=== PATIENT | male | born 1960 | race Caucasian/White ===

== ENCOUNTER 2016-07-27 10:25 | Emergency (ER) | payer OTHER ==
[~2016-07-27] VITALS: Ht 175.3 cm; Wt 106.6 kg
[2016-07-27] MEDS ORDERED: NS IV 1000 ML 1,000 ML IV ONE (11:22)
[2016-07-27] MEDS ORDERED: ONDANSETRON 4 MG/2 ML (SDV) Z0FRAN IVP ONE (11:30)
[2016-07-27] MEDS ORDERED: PANTOPRAZOLE 40 MG/10 ML (PROTONIX) VIAL IV ONE (11:30)
[2016-07-27 11:50] LABS: BASOPHILS % (AUTO) 0 % (0-10); EOSINOPHILS % (AUTO) 0 % (0-10); LYMPHOCYTES # (AUTO) 1.2 X 10^3 (1.0-4.0); LYMPHOCYTES % (AUTO) 10 % (12-44); MEAN CORPUSCULAR HEMOGLOBIN 30 PG (25-34); MEAN CORPUSCULAR HGB CONC 35 G/DL (32-36); MEAN CORPUSCULAR VOLUME 85 FL (80-99); MEAN PLATELET VOLUME 9.8 FL (7.4-10.4); MONOCYTES # (AUTO) 0.9 X 10^3 (0.0-1.0); MONOCYTES % (AUTO) 8 % (0-12); NEUTROPHILS # (AUTO) 9.9 X 10^3 (1.8-7.8); NEUTROPHILS % (AUTO) 82 % (42-75); PLATELET COUNT 299 10^3/uL (130-400); RED BLOOD COUNT 4.97 10^6/uL (4.35-5.85); RED CELL DISTRIBUTION WIDTH 14.4 % (10.0-14.5); WHITE BLOOD COUNT 12.1 10^3/uL (4.3-11.0)
--- NOTE | 2016-07-27 11:55 | ED GI ---
General Chief Complaint: Abdominal/GI Problems Stated Complaint: VOMITING BLOOD,BLOOD IN STOOL Nursing Triage Note: C/O N/V/D X3 DAYS. REPORTS POSSIBLE DARK BLOOD IN EMISIS. Sepsis Screen: No Definite Risk Source of Information: Patient History of Present Illness Time Seen By Provider: 11:20 Initial Comments PT STATES HE HAS HAD NAUSEA/VOMITING / DIARRHEA X 3 DAYS STATES HE HAS VOMITED AT LEAST 12 TIMES TODAY, AND YESTERDAY HE POSSIBLY HAD DARK BLOOD IN EMESIS DIARRHEA X 2 TODAY, STOOLS WERE DARK TODAY, AND THOUGHT HE MIGHT HAVE HAD A BLOOD CLOT YESTERDAY + SWEATS/CHILLS NO EPIGASTRIC PAIN , BUT C/O EPIGASTRIC BURNING ONLY WHEN HE TRIES TO DRINK-- STATES HE HAS NOT EATEN IN 4 DAYS, BUT HAS BEEN DRINKING WATER AND KEEPING IT DOWN. NO URINARY SYMPTOMS, AND VOIDING A NORMAL AMOUNT STATES HE HAD EGD 40 YEARS AGO AND WAS TOLD HE MIGHT HAVE AN ULCER, BUT HAS NOT BEEN ON MEDICATION SINCE THEN NO KNOWN SICK CONTACTS OR SUSPICIOUS FOODS PT IS IV DRUG USER --MULTIPLE SUBSTANCES, AND MOST RECENTLY CRUSHED UP MORPHINE PILLS AND INJECTED THEM IV TODAY. PCP: NONE Allergies and Home Medications Allergies Coded Allergies: No Known Drug Allergies (Unverified , 07/27/16) Home Medications Lactobacillus Acidophilus 1 Each Capsule, 2 EACH PO QID, #80 Prescribed by: MARTHA DEVI on 07/27/16 1305 Ondansetron 4 Mg Tab.rapdis, 4 MG PO Q4H, #10 Prescribed by: MARTHA DEVI on 07/27/16 1305 Pantoprazole Sodium 40 Mg Tablet.dr, 40 MG PO DAILY, #15 Prescribed by: MARTHA DEVI on 07/27/16 1305 Sucralfate 1 Gm/10 Ml Oral.susp, 1 GM PO QID, #400 Prescribed by: MARTHA DEVI on 07/27/16 1305 Review of Systems Constitutional: see HPI, chills, diaphoresis EENTM: No Symptoms Reported Respiratory: No Symptoms Reported Cardiovascular: No Symptoms Reported Gastrointestinal: See HPI, Diarrhea, Nausea, Poor Appetite, Poor Fluid Intake, Vomiting Genitourinary: No Symptoms Reported Musculoskeletal: no symptoms reported Skin: no symptoms reported Psychiatric/Neurological: No Symptoms Reported Endocrine: No Symptoms Reported Hematologic/Lymphatic: See HPI Past Qbglzgq-Tjefqf-Pyjagy Hx Patient Social History Alcohol Use: Occasionally Uses Recreational Drug Use: Yes (MULTIPLE SUBSTANCES AND STATES HE HAS USED THEM IV SINCE HE WAS A TEEN, INCLUDING COCAINE, HEROIN, METHAMPHETAMINES AND CRUSHING UP NARCOTIC PILLS INCLUDING MORPHINE. ) Drug of Choice: CRUSHED MORPHINE IV Smoking Status: Current Everyday Smoker (2 PPD) Type Used: Cigarettes 2nd Hand Smoke Exposure: Yes Recent Foreign Travel: No Contact w/Someone Who Travel: No Recent Infectious Disease Expo: No Recent Hopitalizations: No Immunizations Up To Date Tetanus Booster (TDap): Unknown Seasonal Allergies Seasonal Allergies: No Surgeries HX Surgeries: Yes (BILATERAL HAND SURGERY/TENDON REPAIR; HERNIA) Surgeries: Abdominal, Adenoidectomy, Gallbladder, Orthopedic, Tonsillectomy Respiratory Hx Respiratory Disorders: No Cardiovascular Hx Cardiac Disorders: No Neurological Hx Neurological Disorders: No Reproductive System Hx Reproductive Disorders: No Genitourinary Hx Genitourinary Disorders: No Gastrointestinal Hx Gastrointestinal Disorders: No Musculoskeletal Hx Musculoskeletal Disorders: Yes (CHRONIC KNEE PAIN--USES A CANE) Musculoskeletal Disorders: Arthritis Endocrine Hx Endocrine Disorders: No HEENT HX ENT Disorders: No Cancer Hx Cancer: No Psychosocial Hx Psychiatric Problems: No Integumentary HX Skin/Integumentary Disorder: No Blood Transfusions Hx Blood Disorders: No Physical Exam Vital Signs VS - Last 72 Hours, by Label 07/27/16 07/27/16 07/27/16 11:00 11:41 13:29 Temp 97.2 98.0 Pulse 74 67 63 68 83 Resp 18 16 B/P (MAP) 135/111 Pulse Ox 97 96 O2 Delivery Room Air Capillary Refill : Less Than 3 Seconds General Appearance: WD/WN, no apparent distress, other (DOES NOT APPEAR ILL OR TO BE IN ANY DISCOMFORT OR DISTRESS) HEENT: PERRL/EOMI, other (EDENTULOUS) Neck: normal inspection Respiratory: normal breath sounds, no respiratory distress, no accessory muscle use Cardiovascular: normal peripheral pulses, regular rate, rhythm, no edema, no JVD, no murmur Gastrointestinal: normal bowel sounds, non tender, soft, no organomegaly, no pulsatile mass Extremities: normal inspection Back: normal inspection, no CVA tenderness Neurologic/Psychiatric: supplemental nurse II-XII nml as tested, no motor/sensory deficits, alert, normal mood/affect, oriented x 3 Skin: normal color, warm/dry, tattoos/piercings (MULTIPLE TATTOOS), other ( FRESH TRACK GEORGE IN AC SPACES) Progress/Results/Core Measures Results/Orders Lab Results Laboratory Tests Test 07/27/16 11:35 07/27/16 13:07 Range/Units White Blood Count 12.1 H 4.3-11.0 10^3/uL Red Blood Count 4.97 4.35-5.85 10^6/uL Hemoglobin 14.8 13.3-17.7 G/DL Hematocrit 42 40-54 % Mean Corpuscular Volume 85 80-99 FL Mean Corpuscular Hemoglobin 30 25-34 PG Mean Corpuscular Hemoglobin Concent 35 32-36 G/DL Red Cell Distribution Width 14.4 10.0-14.5 % Platelet Count 299 130-400 10^3/uL Mean Platelet Volume 9.8 7.4-10.4 FL Neutrophils (%) (Auto) 82 H 42-75 % Lymphocytes (%) (Auto) 10 L 12-44 % Monocytes (%) (Auto) 8 0-12 % Eosinophils (%) (Auto) 0 0-10 % Basophils (%) (Auto) 0 0-10 % Neutrophils # (Auto) 9.9 H 1.8-7.8 X 10^3 Lymphocytes # (Auto) 1.2 1.0-4.0 X 10^3 Monocytes # (Auto) 0.9 0.0-1.0 X 10^3 Eosinophils # (Auto) 0.0 0.0-0.3 10^3/uL Basophils # (Auto) 0.0 0.0-0.1 10^3/uL Prothrombin Time 12.8 12.2-14.7 SEC INR Comment 1.0 0.8-1.4 Activated Partial Thromboplast Time 27 24-35 SEC Sodium Level 136 135-145 MMOL/L Potassium Level 3.2 L 3.6-5.0 MMOL/L Chloride Level 103 98-107 MMOL/L Carbon Dioxide Level 23 21-32 MMOL/L Anion Gap 10 5-14 MMOL/L Blood Urea Nitrogen 23 H 7-18 MG/DL Creatinine 0.75 0.60-1.30 MG/DL Estimat Glomerular Filtration Rate > 60 BUN/Creatinine Ratio 31 Glucose Level 131 H 70-105 MG/DL Calcium Level 8.8 8.5-10.1 MG/DL Magnesium Level 2.0 1.8-2.4 MG/DL Total Bilirubin 0.7 0.1-1.0 MG/DL Aspartate Amino Transf (AST/SGOT) 25 5-34 U/L Alanine Aminotransferase (ALT/SGPT) 39 0-55 U/L Alkaline Phosphatase 58 40-136 U/L Total Protein 6.5 6.4-8.2 G/DL Albumin 3.9 3.2-4.5 G/DL Amylase Level 15 L 25-125 U/L Lipase 8 8-78 U/L Serum Alcohol < 10 <10 MG/DL Urine Color YELLOW Urine Clarity CLEAR Urine pH 7 5-9 Urine Specific Luckey 1.010 L 1.016-1.022 Urine Protein 1+ H NEGATIVE Urine Glucose (UA) NEGATIVE NEGATIVE Urine Ketones 1+ H NEGATIVE Urine Nitrite NEGATIVE NEGATIVE Urine Bilirubin NEGATIVE NEGATIVE Urine Urobilinogen NORMAL NORMAL MG/DL Urine Leukocyte Esterase NEGATIVE NEGATIVE Urine RBC (Auto) NEGATIVE NEGATIVE Urine RBC NONE /HPF Urine WBC NONE /HPF Urine Crystals NONE /LPF Urine Bacteria NEGATIVE /HPF Urine Casts NONE /LPF Urine Mucus NEGATIVE /LPF Urine Culture Indicated NO Urine Opiates Screen POSITIVE H NEGATIVE Urine Oxycodone Screen NEGATIVE NEGATIVE Urine Methadone Screen NEGATIVE NEGATIVE Urine Propoxyphene Screen NEGATIVE NEGATIVE Urine Barbiturates Screen NEGATIVE NEGATIVE Ur Tricyclic Antidepressants Screen NEGATIVE NEGATIVE Urine Phencyclidine Screen NEGATIVE NEGATIVE Urine Amphetamines Screen NEGATIVE NEGATIVE Urine Methamphetamines Screen NEGATIVE NEGATIVE Urine Benzodiazepines Screen NEGATIVE NEGATIVE Urine Cocaine Screen NEGATIVE NEGATIVE Urine Cannabinoids Screen POSITIVE H NEGATIVE My Orders Orders - YONG DEVIA K DO Saline Lock/Iv-Start (07/27/16 11:22) Orthostatic Vital Signs (07/27/16 11:22) Monitor-Rhythm Ecg Trace Only (07/27/16 11:22) Amylase (07/27/16 11:22) Cbc With Automated Diff (07/27/16 11:22) Comprehensive Metabolic Panel (07/27/16 11:22) Drug Screen Stat (Urine) (07/27/16 11:22) Magnesium (07/27/16 11:22) Protime With Inr (07/27/16 11:22) Partial Thromboplastin Time (07/27/16 11:22) Ua Culture If Indicated (07/27/16 11:22) Saline Lock/Iv-Start (07/27/16 11:22) Ns Iv 1000 Ml (Sodium Chloride 0.9%) (07/27/16 11:22) Ondansetron Injection (Zofran Injectio (07/27/16 11:30) Pantoprazole Injection (Protonix Injecti (07/27/16 11:30) Lipase (07/27/16 11:22) Alcohol (07/27/16 11:42) Ct Chest/Abdomen/Pelvis W (07/27/16 12:14) Iohexol Injection (Omnipaque 350 Mg/Ml 1 (07/27/16 12:30) Ns (Ivpb) (Sodium Chloride 0.9% Ivpb Bag (07/27/16 12:30) Medications Given in ED Current Medications Medications Dose Ordered Sig/Nic Route Start Time Stop Time Status Last Admin Dose Admin Iohexol 100 ml ONCE ONCE IV 07/27/16 12:30 07/27/16 12:31 DC 07/27/16 12:23 100 ML Ondansetron HCl 4 mg ONCE ONCE IVP 07/27/16 11:30 07/27/16 11:36 DC 07/27/16 11:34 4 MG Pantoprazole 40 mg ONCE ONCE IV 07/27/16 11:30 07/27/16 11:36 DC 07/27/16 11:34 40 MG Sodium Chloride 100 ml ONCE ONCE IV 07/27/16 12:30 07/27/16 12:31 DC 07/27/16 12:23 80 ML Sodium Chloride 1,000 ml @ 0 mls/hr Q0M ONCE IV 07/27/16 11:22 07/27/16 11:24 DC 07/27/16 11:35 0 MLS/HR Vital Signs/I&O Vital Sign - Last 12Hours 07/27/16 07/27/16 07/27/16 11:00 11:41 13:29 Temp 97.2 98.0 Pulse 74 67 63 68 83 Resp 18 16 B/P (MAP) 135/111 Pulse Ox 97 96 O2 Delivery Room Air Blood Pressure Mean: 119 Progress Note : Progress Note NO VOMITING OR DIARRHEA DURING ER STAY PT TOLERATING WATER AND ICE CHIPS PRIOR TO DISMISSAL Diagnostic Imaging Comments CT CHEST/ABDOMEN/PELVIS--NO ACUTE PROCESS, SMALL HIATAL HERNIA, SMALL CYST IN LIVER PER RADIOLOGIST REPORT @ 1300 Reviewed: Reviewed by Me Departure Communication Progress Notes 1323--SPOKE WITH DR. MEJIA, WILL SEE PT IN CLINIC AND ARRANGE FOR OUTPATIENT EGD/COLONOSCOPY Impression Impression: Primary Impression: Gastroenteritis Additional Impressions: Hiatal hernia GERD SYMPTOMS Disposition: 01 HOME, SELF-CARE Condition: Stable Departure-Patient Inst. Referrals: CLEM MEJIA,LOCAL PHYSICIAN (PCP) Primary Care Physician Patient Instructions: Acid Reflux (Gastroesophageal Reflux Disease), Adult (DC) , [id number] Add. Discharge Instructions: CLEAR LIQUIDS--WATER, BROTH, JELLO, GATORADE BRATS DIET--BANANAS, RICE, APPLESAUCE, TOAST, SALTINES ACIDOPHILS DAILY NO ALCOHOL OR DRUGS FOLLOW UP WITH DR MEJIA THIS WEEK FOR FURTHER CARE CALL THIS WEEK TO ESTABLISH PRIMARY CARE DR. All discharge instructions reviewed with patient and/or family. Voiced understanding. Scripts Lactobacillus Acidophilus (Acidophilus) 1 Each Capsule 2 EACH PO QID, #80 CAP Prov: MARTHA DEVI DO 07/27/16 Ondansetron (Zofran Odt) 4 Mg Tab.rapdis 4 MG PO Q4H for Nausea/Vomiting, #10 TAB Prov: MARTHA DEVI DO 07/27/16 Pantoprazole Sodium (Protonix) 40 Mg Tablet.dr 40 MG PO DAILY, #15 TAB Prov: MARTHA DEVI DO 07/27/16 Sucralfate (Carafate) 1 Gm/10 Ml Oral.susp 1 GM PO QID, #400 ML Prov: MARTHA DEVI DO 07/27/16 Work/School Note: Local Medical Staff Listing MARTHA DEIV DO Jul 27, 2016 11:55
[2016-07-27 12:00] LABS: PROTHROMBIN TIME PATIENT 12.8 SEC (12.2-14.7)
[2016-07-27 12:09] LABS: ALANINE AMINOTRANSFERASE 39 U/L (0-55); ALBUMIN 3.9 G/DL (3.2-4.5); AMYLASE 15 U/L (25-125); ANION GAP 10 MMOL/L (5-14); ASPARTATE AMINO TRANSFERASE 25 U/L (5-34); BILIRUBIN,TOTAL 0.7 MG/DL (0.1-1.0); BLOOD UREA NITROGEN 23 MG/DL (7-18); BUN/CREATININE RATIO 31; CALCIUM 8.8 MG/DL (8.5-10.1); CARBON DIOXIDE 23 MMOL/L (21-32); CHLORIDE 103 MMOL/L (98-107); CREATININE SERUM 0.75 MG/DL (0.60-1.30); GFR ESTIMATED > 60; GLUCOSE 131 MG/DL (70-105); LIPASE 8 U/L (8-78); POTASSIUM 3.2 MMOL/L (3.6-5.0); SODIUM 136 MMOL/L (135-145); TOTAL PROTEIN 6.5 G/DL (6.4-8.2)
[2016-07-27 12:10] LABS: ALCOHOL < 10 MG/DL (<10)
[2016-07-27] MEDS ORDERED: IOHEXOL 350 MG/ML 100 ML (OMNIPAQUE 350) VIAL IV ONE (12:30)
[2016-07-27] MEDS ORDERED: NS 100 ML (IVPB) BAG IV ONE (12:30)
--- NOTE | 2016-07-27 12:57 | Diagnostic Imaging Report ---
PROCEDURE: CT chest, abdomen, and pelvis with contrast. TECHNIQUE: Multiple contiguous axial images were obtained through the chest, abdomen, and pelvis after the administration of intravenous contrast. INDICATION: Hemoptysis as well as blood in stool. FINDINGS: CT CHEST WITH CONTRAST: There is mild scarring or atelectasis noted along the lingula. The lungs are otherwise well-aerated and clear. There are no masses. Good opacification of the aorta and pulmonary arteries which appear normal. No mediastinal or hilar adenopathy of pathologic size. Bone windows show no blastic or lytic lesions. IMPRESSION: Minimal atelectasis or scarring along the lingula otherwise negative chest. CT ABDOMEN AND PELVIS WITH CONTRAST: There is a cyst in the left lobe of the liver. This measures approximately 1.7 cm in diameter. Gallbladder is absent. Bile ducts are not dilated. Pancreas and spleen are normal. Adrenal glands are normal. The kidneys show no evidence of obstruction. No calculi or masses. There is normal enhancement of the abdominal organs and vessels. Aorta is atherosclerotic. Maximal diameter of the aorta is 2.9 cm. There is oral contrast in the stomach and small bowel which appear normal. There is a small fixed hiatal hernia present. Colon shows normal stool and gas pattern. The appendix is visualized and normal. There are no diverticuli. No pelvic masses. Bladder appears normal. No intra-abdominal adenopathy. There is no free air or free fluid. IMPRESSION: 1. Benign-appearing cyst in the left lobe of the liver otherwise negative CT abdomen and pelvis. 2. Small fixed hiatal hernia. Dictated by: Dictated on workstation # [id number]
[2016-07-27] MEDS ORDERED: LACT1CAP8 PO (13:05)
[2016-07-27] MEDS ORDERED: SUCR1ORA5 PO (13:05)
[2016-07-27] MEDS ORDERED: PANT40TA2 PO (13:05)
[2016-07-27] MEDS ORDERED: ONDA4TAB8 PO (13:05)
[2016-07-27 13:19] LABS: BILIRUBIN,URINE NEGATIVE (NEGATIVE); KETONES,URINE 1+ (NEGATIVE); LEUKOCYTE ESTERASE ,URINE NEGATIVE (NEGATIVE); NITRITE,URINE NEGATIVE (NEGATIVE); PH,URINE 7 (5-9); PROTEIN,URINE 1+ (NEGATIVE); UROBILINOGEN,URINE NORMAL (NORMAL)
[2016-07-27 13:29] VITALS: BP 145/88
== END 2016-07-27 13:29 | disposition home or self-care (01) ==
LOC: EDUNIT# 10:25 → ER 10:27
DX: K52.9 Noninfective gastroenteritis and colitis, unspecified (principal); K21.9 Gastro-esophageal reflux disease without esophagitis; K44.9 Diaphragmatic hernia without obstruction or gangrene; K76.89 Other specified diseases of liver; F17.210 Nicotine dependence, cigarettes, uncomplicated; F11.10 Opioid abuse, uncomplicated
CPT/HCPCS: 36415; 71260; 74177; 80053; 80306; 80320; 81000; 82150; 83690; 83735; 85025; 85610; 85730; 93041; 96374; 96375

== ENCOUNTER 2018-10-04 09:22 | Outpatient (CLI) | payer MEDICARE ==
[~2018-10-04] VITALS: Ht 177.8 cm; Wt 112.5 kg
[~2018-10-04 09:22] MED LIST: LACT1CAP8 PO; ONDA4TAB8 PO; PANT40TA2 PO; SUCR1ORA5 PO
[2018-10-04 10:43] LABS: BASOPHILS # (AUTO) 0.1 10^3/uL (0.0-0.1); BASOPHILS % (AUTO) 1 % (0-10); EOSINOPHILS # (AUTO) 0.3 10^3/uL (0.0-0.3); EOSINOPHILS % (AUTO) 4 % (0-10); HEMATOCRIT 47 % (40-54); HEMOGLOBIN 15.8 G/DL (13.3-17.7); LYMPHOCYTES # (AUTO) 1.9 X 10^3 (1.0-4.0); LYMPHOCYTES % (AUTO) 22 % (12-44); MEAN CORPUSCULAR HEMOGLOBIN 30 PG (25-34); MEAN CORPUSCULAR HGB CONC 34 G/DL (32-36); MEAN CORPUSCULAR VOLUME 87 FL (80-99); MEAN PLATELET VOLUME 9.6 FL (7.4-10.4); MONOCYTES # (AUTO) 0.7 X 10^3 (0.0-1.0); MONOCYTES % (AUTO) 8 % (0-12); NEUTROPHILS # (AUTO) 5.9 X 10^3 (1.8-7.8); NEUTROPHILS % (AUTO) 66 % (42-75); PLATELET COUNT 282 10^3/uL (130-400); RED CELL DISTRIBUTION WIDTH 14.9 % (10.0-14.5); WHITE BLOOD COUNT 8.9 10^3/uL (4.3-11.0)
[2018-10-04 10:54] LABS: BILIRUBIN,URINE NEGATIVE (NEGATIVE); CLARITY,URINE CLEAR; COLOR,URINE YELLOW; GLUCOSE, URINE (UA) NEGATIVE (NEGATIVE); KETONES,URINE NEGATIVE (NEGATIVE); LEUKOCYTE ESTERASE ,URINE 1+ (NEGATIVE); NITRITE,URINE NEGATIVE (NEGATIVE); PH,URINE 5 (5-9); PROTEIN,URINE NEGATIVE (NEGATIVE); UROBILINOGEN,URINE NORMAL (NORMAL)
[2018-10-04 10:59] VITALS: BP 163/98
[2018-10-04 11:04] LABS: BACTERIA,URINE NEGATIVE /HPF; WBC,URINE RARE /HPF
[2018-10-04 11:06] LABS: INR 0.9 (0.8-1.4); PROTHROMBIN TIME PATIENT 12.6 SEC (12.2-14.7)
[2018-10-04 11:10] LABS: ALANINE AMINOTRANSFERASE 12 U/L (0-55); ALBUMIN 4.1 GM/DL (3.2-4.5); ALKALINE PHOSPHATASE 54 U/L (40-136); BILIRUBIN,TOTAL 0.4 MG/DL (0.1-1.0); BUN/CREATININE RATIO 19; CALCIUM 9.2 MG/DL (8.5-10.1); CARBON DIOXIDE 19 MMOL/L (21-32); CHLORIDE 108 MMOL/L (98-107); CREATININE SERUM 0.77 MG/DL (0.60-1.30); GFR ESTIMATED > 60; GLUCOSE 98 MG/DL (70-105); POTASSIUM 4.1 MMOL/L (3.6-5.0); SODIUM 136 MMOL/L (135-145); TOTAL PROTEIN 7.2 GM/DL (6.4-8.2)
--- NOTE | 2018-10-04 11:22 | Diagnostic Imaging Report ---
Indication: Preop knee replacement, degenerative joint disease. PA and lateral chest Heart size and pulmonary vascularity are normal. Lungs are clear. There are no effusions or pneumothoraces. Impression: Negative chest. Dictated by: Dictated on workstation # [id number]
[2018-10-04 11:24] LABS: ERYTHROCYTE SEDIMENTATION RATE 6 MM/HR (0-30)
[2018-10-05] MEDS ORDERED: DILT120C47 PO (11:35)
[2018-10-05] MEDS ORDERED: DILT120C53 PO (11:47)
[2018-10-06] MEDS ORDERED: OXYC1TAB87 PO (09:30)
== END 2018-10-04 11:00 | disposition home or self-care (01) ==
LOC: PREOP 09:22
PROVIDERS: ATTEND Orthopaedic Surgery
DX: Z01.810 Encounter for preprocedural cardiovascular examination (principal); Z01.811 Encounter for preprocedural respiratory examination; Z01.812 Encounter for preprocedural laboratory examination; Z11.2 Encounter for screening for other bacterial diseases; M17.12 Unilateral primary osteoarthritis, left knee; R53.83 Other fatigue
CPT/HCPCS: 36415; 71046; 80053; 81000; 85025; 85610; 85652; 86850; 86900; 86901; 87081; 93005

== ENCOUNTER 2018-10-05 08:05 | Inpatient (IN) | payer MEDICARE ==
[2018-10-05] VITALS (15 sets, daily range): BP systolic 88–127; BP diastolic 45–91
[~2018-10-05] VITALS: Ht 177.8 cm; Wt 113.4 kg
[2018-10-05 08:54] LABS: HEMOGLOBIN 15.6 G/DL (13.3-17.7); MEAN PLATELET VOLUME 9.4 FL (7.4-10.4); RED CELL DISTRIBUTION WIDTH 15.5 % (10.0-14.5); WHITE BLOOD COUNT 8.1 10^3/uL (4.3-11.0)
[2018-10-05] MEDS ORDERED: HEParin DRIP 25000 UNIT/500ML 500 ML IV SCH (09:01)
[2018-10-05 09:09] LABS: INR 0.9 (0.8-1.4); PROTHROMBIN TIME PATIENT 12.9 SEC (12.2-14.7)
[2018-10-05] MEDS ORDERED: HEParin 1000 UNIT/ML (10ML VIAL) FOR BOLUS IV PRN (09:15)
[2018-10-05] MEDS ORDERED: CATHETER FLUSH 10 ML SYR IV PRN (09:15)
[2018-10-05 09:16] LABS: ALANINE AMINOTRANSFERASE 13 U/L (0-55); ALBUMIN 4.4 GM/DL (3.2-4.5); ALKALINE PHOSPHATASE 61 U/L (40-136); BILIRUBIN,TOTAL 0.4 MG/DL (0.1-1.0); BUN/CREATININE RATIO 21; CALCIUM 9.7 MG/DL (8.5-10.1); CARBON DIOXIDE 23 MMOL/L (21-32); CHLORIDE 104 MMOL/L (98-107); CREATININE SERUM 0.81 MG/DL (0.60-1.30); GFR ESTIMATED > 60; GLUCOSE 97 MG/DL (70-105); POTASSIUM 4.2 MMOL/L (3.6-5.0); SODIUM 138 MMOL/L (135-145); TOTAL PROTEIN 7.5 GM/DL (6.4-8.2)
--- NOTE | 2018-10-05 10:22 | Diagnostic Imaging Report ---
INDICATION: Atrial fibrillation. TECHNIQUE: Two view chest 9:15 AM CORRELATION STUDY: 10/04/2018 FINDINGS: The heart size, mediastinal configuration and pulmonary vasculature are within normal limits. Lung sosa are hyperinflated but overall clear. Mild eventration of the right diaphragm, stable. Mild degenerative changes through the thoracic spine. IMPRESSION: 1. Stable chest demonstrates no acute abnormality. Hyperinflated lung sosa. Dictated by: Dictated on workstation # [id number]
--- NOTE | 2018-10-05 10:25 | Cardiology History & Physical ---
HPI-Cardiology Cardiology Consultation Date of Consultation 10/05/18 Date of Admission Time Seen by Provider: 08:30 Indication: atrial flutter HPI Mr Samm is 58 years old gentleman with no significant past history, active smoker, was scheduled for knee replacement surgery and the preoperative workup was noted to be in atrial flutter with rapid ventricular response and hypertension, denied any chest pain or shortness of breath. No palpitation, syncope or near syncopal episodes. No claudications. Had a long discussion with the patient and with Dr. Johnson and agreed on admitting the patient to the hospital and starting IV thousand, blockers and heparin drip in preparation to control his rate then planning for surgery. this morning patient was admitted, no new complaint, no palpitation. No syncope or near syncopal episodes PMH-Cardiology Immunizations Up To Date Tetanus Booster (DTap): Unknown Seasonal Allergies Seasonal Allergies: No Surgeries Yes (BILATERAL HAND SURGERY/TENDON REPAIR; [facility] HERNIA) Respiratory No Cardiovascular No Neurological No Reproductive System Hx Reproductive Disorders: No Genitourinary No Gastrointestinal Yes (hep C treated ) Musculoskeletal Yes (osteoarthritis L knee) Arthritis Endocrine No HEENT Yes (dentures ) Cancer No Psychosocial No Integumentary No Blood Transfusions No Other PMHx discussed the Social History Patient Social History Marrital Status: Employed/Student: employed Family Hx Family History: Colon cancer 19 FATHER Dementia 19 FATHER Diabetes mellitus 19 FATHER Hypertension 19 FATHER G8 BROTHER Thyroid disease G8 SISTER ROS-Cardiology Review of Systems General: No Chills, No Night Sweats, No Fatigue, No Malaise, No Appetite HEENT: No Head Aches, No Visual Changes, No Eye Pain, No Ear Pain, No Dysphasia, No Sinus Congestion, No Post Nasal Drip, No Sore Throat Pulmonary: No Dyspnea, No Cough, No Pleuritic Chest Pain Cardiovascular: No: Chest Pain, Palpitations, Orthopnea, Paroxysmal Noc. Dyspnea, Edema, Lt Headedness Gastrointestinal: No: Nausea, Vomiting, Abdominal Pain, Diarrhea, Constipation, Melena, Hematochezia Genitourinary: No Dysuria, No Frequency, No Incontinence, No Hematuria, No Retention Musculoskeletal: shoulder pain, leg pain; No: neck pain, arm pain, back pain, hand pain, foot pain Neurological: No: Weakness, Numbness, Incoordination, Change in speech, Confusion, Seizures Home Medications & Allergies Allergies: Coded Allergies: No Known Drug Allergies (Unverified , 07/27/16) Home Medication List Reviewed: Yes Exam-Cardiology Vital Signs Vital Signs Date Time Temp Pulse Resp B/P (MAP) Pulse Ox O2 Delivery O2 Flow Rate FiO2 10/05/18 09:22 114 10/05/18 09:00 19 127/91 (103) 93 Room Air Exam General Appearance: Alert, Oriented X3, Cooperative, No Acute Distress HEENT: Atraumatic, PERRLA Respiratory: Clear to Auscultation, Normal Air Movement Cardiovascular: Normal S1, Normal S2, No Murmurs, Other (atrial flutter with rapid ventricular response) Abdominal: Normal Bowel Sounds, Soft, No Tenderness, No Hepatosplenomegaly, No Masses Extremities: No Clubbing, No Cyanosis, No Edema, Normal Pulses, No Tenderness/Swelling Skin: No Rashes, No Breakdown, No Significant Lesion Neuro: Normal Gait, Normal Speech, Strength at 5/5 X4 Ext, Normal Tone, Sensation Intact Psych/Mental Status: Mental Status NL, Mood NL Results Labs Labs Laboratory Tests 10/05/18 08:40: White Blood Count 8.1, Red Blood Count 5.22, Hemoglobin 15.6, Hematocrit 47, Mean Corpuscular Volume 89, Mean Corpuscular Hemoglobin 30, Mean Corpuscular Hemoglobin Concent 34, Red Cell Distribution Width 15.5H, Platelet Count 291, Mean Platelet Volume 9.4, Prothrombin Time 12.9, INR Comment 0.9, Activated Partial Thromboplast Time 33, Sodium Level 138, Potassium Level 4.2, Chloride Level 104, Carbon Dioxide Level 23, Anion Gap 11, Blood Urea Nitrogen 17, Creatinine 0.81, Estimat Glomerular Filtration Rate > 60, BUN/Creatinine Ratio 21, Glucose Level 97, Calcium Level 9.7, Corrected Calcium 9.4, Total Bilirubin 0.4, Aspartate Amino Transf (AST/SGOT) 12, Alanine Aminotransferase (ALT/SGPT) 13, Alkaline Phosphatase 61, Total Protein 7.5, Albumin 4.4, Thyroid Stimulating Hormone (TSH) 2.56 A/P-Cardiology Admission Diagnosis Atrial flutter Tachycardia Hypertension Arthritis Admission Status: Inpatient Order (span 2 midnights) Reason for Inpatient Admission: atrial flutter, tachycardia, planning to initiate artisan drip and scheduled for knee surgery Assessment/Plan Atrial flutter with rapid ventricular response unknown duration. Patient is asymptomatic discovered incidentally on the preoperative workup for knee replacement surgery. I discussed the management with Dr. Johnson and we will admit him to the hospital started on Cardizem drip and heparin drip in preparation to achieve adequate heart rate controlled then planning for surgery for Thursday. Hypertension, blood pressure was significantly elevated in the office, currently better control, started on Cardizem drip, continue to monitor Arthritis, scheduled for knee replacement surgery with Dr. Johnson Preoperative cardiac evaluation patient has multiple risk factors, he is at intermediate to high risk for perioperative cardiac vascular complications. Discussing with Dr. Johnson the complexity of his management. Patient will be admitted to the hospital and I will evaluate 2-D echocardiogram and start Cardizem drip and heparin drip in preparation for his surgery for Thursday then postoperatively I will consider doing [place] and cardioversion if he did not convert on his own. In addition further cardiac workup will be done during his hospital stay. Questionable hyperlipidemia I will evaluate lipid profile, CMP and TSH Obesity, BMI 35, we discussed weight loss and the risk of sleep apnea. Tobaccoism, educated on smoking cessation MONIK BRITO MD Oct 05, 2018 10:25
--- NOTE | 2018-10-05 11:20 | NUR ---
Pastoral care visit.
[2018-10-05] MEDS ORDERED: DILT120C47 PO (11:35)
[2018-10-05] MEDS ORDERED: DILT120C53 PO (11:47)
--- NOTE | 2018-10-05 11:51 | NUR ---
SPOKE WITH THE PATIENT ABOUT HIS MEDICATIONS. HE STATES HE FILLED THE DILTIAZEM LAST NIGHT AND HAS NOW STARTED THAT. HE DOES NOT TAKE ANYTHING OTC. HE STATES HE FINISHED HIS HARVONI IN AUGUST AND IS NO LONGER TAKING THAT EITHER.
--- NOTE | 2018-10-05 13:31 | Diagnostic Imaging Report ---
INDICATION: PICC line placement. COMPARISON: Earlier same day. FINDINGS: Single frontal radiographic view of the chest was obtained and demonstrates interval placement of left upper extremity PICC line, tip of which terminates at the cavoatrial junction. Evaluation of the lung sosa demonstrates mass-like opacity projecting over the right hemidiaphragm. This is shown to be artifactual and related to probable focal herniation of the dome of the liver in the right base. Otherwise, lungs are clear. There is no large effusion or pneumothorax on either side. Cardiac silhouette and pulmonary vasculature are within normal limits. Bony structures show no gross acute abnormalities. IMPRESSION: 1. Left upper extremity PICC line with tip at the cavoatrial junction. Dictated by: Dictated on workstation # [id number]
[2018-10-05] MEDS: DILTIAZEM IV FOR DRIP 125 MG in NS (IVPB) 100 ML IV SCH (14:45)
[2018-10-05] MEDS: meTOprolol 5 MG/5 ML (LOPRESSOR) VIAL IV SCH ×2 (14:45→18:32)
--- NOTE | 2018-10-05 15:11 | Pulmonary Consultation ---
History of Present Illness History of Present Illness Date of Consultation 10/05/18 15:07 Time Seen by Provider: 15:07 Date of Admission Reason for Visit: atrial flutter History of Present Illness 58yo with who is a active smoker, was scheduled for knee replacement surgery and the preoperative workup was noted to be in atrial flutter with rapid ventricular response and hypertension, denied any chest pain or shortness of breath. No palpitation, syncope or near syncopal episodes. No claudications. Pt was admitted for preop medical management. then planning for surgery. Allergies and Home Medications Allergies Coded Allergies: No Known Drug Allergies (Unverified , 07/27/16) Home Medications Apixaban 5 Mg Tablet, 5 MG PO BID, (Reported) Diltiazem HCl 240 Mg Cap.er.24h, 240 MG PO DAILY, (Reported) Metoprolol Tartrate 25 Mg Tablet, 25 MG PO BID, (Reported) Oxycodone HCl/Acetaminophen 1 Each Tablet, 1 TAB PO Q4H PRN for PAIN-MODERATE, (Reported) Past Lzrcotv-Bovbri-Fxfcmk Hx Patient Social History Alcohol Use: Denies Use Alcohol Beverage of Choice: Beer Recreational Drug Use: Yes Drug of Choice: [employer] Type Used: Cigarettes 2nd Hand Smoke Exposure: Yes Recent Hopitalizations: No Immunizations Up To Date Tetanus Booster (TDap): Unknown PED Vaccines UTD: Yes Seasonal Allergies Seasonal Allergies: No Past Medical History Surgeries: Yes Abdominal, Adenoidectomy, Gallbladder, Orthopedic, Tonsillectomy Respiratory: No Cardiac: No Neurological: No Reproductive Disorders: No Sexually Transmitted Disease: Yes HIV/AIDS: No Genitourinary: No Gastrointestinal: No Musculoskeletal: Yes (bilateral knee pain) Arthritis Endocrine: No HEENT: No Hearing Impairment: Hard of Hearing Cancer: No Psychosocial: No Anxiety, Depression Integumentary: No Blood Disorders: No Adverse Reaction/Blood Tranf: No Family Medical History Colon cancer 19 FATHER Dementia 19 FATHER Diabetes mellitus 19 FATHER Hypertension 19 FATHER G8 BROTHER Thyroid disease G8 SISTER Review of Systems Time Seen by Provider: 12:10 Sepsis Event Evaluation Height, Weight, BMI Height: 5'10.00" Weight: 244lbs. 1.0oz. 110.239270fn; 35.0 BMI Method:Stated Exam Exam Vital Signs Date Time Temp Pulse Resp B/P (MAP) Pulse Ox O2 Delivery O2 Flow Rate FiO2 10/05/18 14:45 90 18 116/69 93 10/05/18 13:00 116 10/05/18 12:00 97.7 10/05/18 12:00 97 Room Air 10/05/18 11:00 103 14 114/80 (91) 97 Room Air 10/05/18 10:00 107 12 119/73 (88) 96 Room Air 10/05/18 09:22 114 10/05/18 09:00 111 19 127/91 (103) 93 Room Air 10/05/18 08:30 97 Room Air Height & Weight Height: 5'10.00" Weight: 244lbs. 1.0oz. 110.347258ov; 35.0 BMI Method:Stated General Appearance: No Apparent Distress, WD/WN HEENT: PERRL/EOMI, Normal ENT Inspection, Pharynx Normal Neck: Full Range of Motion, Non Tender, Supple Respiratory: Chest Non Tender, No Accessory Muscle Use, No Respiratory Distress, Decreased Breath Sounds Cardiovascular: Regular Rate, Rhythm, No Edema, No Gallop Capillary Refill: Less Than 3 Seconds Gastrointestinal: normal bowel sounds, non tender, soft, no organomegaly Extremity: Normal Capillary Refill, No Pedal Edema Neurologic/Psychiatric: Alert Skin: Normal Color, Warm/Dry Results Lab Laboratory Tests 10/05/18 08:40 Assessment/Plan Assessment/Plan Afib/flutter with RVR -Cardiology following -Hep, cardizem gtt Tobacco use -Education Osteoarthritis -Scheduled for knee replacement with MARGARET Sanchez DO Oct 05, 2018 15:11
[2018-10-05] MEDS ORDERED: NS IV 1000 ML 1,000 ML ONE (15:26)
[2018-10-05] MEDS ORDERED: NS IV 1000 ML 1,000 ML IV ONE (16:00)
--- NOTE | 2018-10-05 16:11 | CONSULTATION REPORT ---
DATE OF SERVICE: REASON FOR CONSULTATION: Admitted for cardiac care preoperatively. HISTORY OF PRESENT ILLNESS: The patient is a 58-year-old gentleman who was admitted by Dr. To for arrhythmia for planned total knee arthroplasty tomorrow. For the remainder of his history and physical, please see his admission history and physical dictated by me. PLAN: The plan will be for left total knee arthroplasty tomorrow. The patient understands risks, benefits, options, ramifications and recovery. Thank you for the consultation of the patient. Job ID: [id number] DocumentID: [id number] Dictated Date: 10/05/2018 13:50:22 Supervisor Finishing Department Date: 10/05/2018 16:10:23 Dictated By: DAVID ALVES MD
[2018-10-06] VITALS (20 sets, daily range): BP systolic 88–147; BP diastolic 47–98
[2018-10-06] MEDS: meTOprolol 5 MG/5 ML (LOPRESSOR) VIAL IV SCH ×3 (00:47→11:04)
[2018-10-06 04:53] LABS: BASOPHILS % (AUTO) 1 % (0-10); EOSINOPHILS # (AUTO) 0.4 10^3/uL (0.0-0.3); EOSINOPHILS % (AUTO) 5 % (0-10); HEMATOCRIT 42 % (40-54); LYMPHOCYTES # (AUTO) 2.2 X 10^3 (1.0-4.0); LYMPHOCYTES % (AUTO) 29 % (12-44); MEAN CORPUSCULAR HEMOGLOBIN 30 PG (25-34); MEAN CORPUSCULAR HGB CONC 33 G/DL (32-36); MEAN CORPUSCULAR VOLUME 89 FL (80-99); MEAN PLATELET VOLUME 9.7 FL (7.4-10.4); MONOCYTES # (AUTO) 0.6 X 10^3 (0.0-1.0); MONOCYTES % (AUTO) 7 % (0-12); NEUTROPHILS # (AUTO) 4.3 X 10^3 (1.8-7.8); NEUTROPHILS % (AUTO) 58 % (42-75); PLATELET COUNT 260 10^3/uL (130-400); WHITE BLOOD COUNT 7.4 10^3/uL (4.3-11.0)
[2018-10-06 05:11] LABS: BUN/CREATININE RATIO 13; CALCIUM 8.5 MG/DL (8.5-10.1); CARBON DIOXIDE 21 MMOL/L (21-32); CHLORIDE 108 MMOL/L (98-107); CREATININE SERUM 0.71 MG/DL (0.60-1.30); GFR ESTIMATED > 60; GLUCOSE 93 MG/DL (70-105); PHOSPHORUS 2.5 MG/DL (2.3-4.7); POTASSIUM 4.1 MMOL/L (3.6-5.0); SODIUM 138 MMOL/L (135-145)
--- NOTE | 2018-10-06 05:31 | Pulmonary Progress Note ---
Subjective Time Seen by a Provider: 12:19 Sepsis Event Evaluation Height, Weight, BMI Height: 5'10.00" Weight: 244lbs. 1.0oz. 110.854848qc; 35.0 BMI Method:Stated Exam Exam Vital Signs Date Time Temp Pulse Resp B/P (MAP) Pulse Ox O2 Delivery O2 Flow Rate FiO2 10/06/18 04:00 97 Room Air 10/06/18 04:00 96.0 10/06/18 04:00 73 18 120/81 (94) 94 Room Air 10/06/18 03:00 68 18 113/52 (72) 94 Room Air 10/06/18 02:00 70 22 121/78 (92) 95 10/06/18 01:01 68 10/06/18 01:00 74 26 88/47 (61) 94 Room Air 10/06/18 00:49 97 Room Air 10/06/18 00:49 97.4 10/06/18 00:00 69 18 102/69 (80) 98 Room Air 10/05/18 23:00 69 22 114/77 (89) 97 Room Air 10/05/18 22:00 80 15 115/73 (87) 96 Room Air 10/05/18 21:00 69 18 95/45 (62) 94 Room Air 10/05/18 20:00 97.0 10/05/18 20:00 97 Room Air 10/05/18 20:00 69 24 109/72 (84) 97 Room Air 10/05/18 19:02 105 10/05/18 19:00 70 23 110/74 (86) 97 Room Air 10/05/18 18:00 70 18 99/80 (86) 97 Room Air 10/05/18 17:00 69 19 88/56 (67) 91 Room Air 10/05/18 16:00 98.2 10/05/18 16:00 64 21 98/70 (79) 89 Room Air 10/05/18 16:00 97 Room Air 10/05/18 15:00 70 17 97/65 (76) 94 Room Air 10/05/18 14:45 90 18 116/69 93 10/05/18 14:00 111 22 94/69 (77) 93 Room Air 10/05/18 13:00 97.7 10/05/18 13:00 116 10/05/18 13:00 116 23 119/77 (91) 95 Room Air 10/05/18 12:00 97.7 10/05/18 12:00 93 15 111/68 (82) Room Air 10/05/18 12:00 97 Room Air 10/05/18 11:00 103 14 114/80 (91) 97 Room Air 10/05/18 10:00 107 12 119/73 (88) 96 Room Air 10/05/18 09:22 114 10/05/18 09:00 111 19 127/91 (103) 93 Room Air 10/05/18 08:30 97 Room Air I & O 10/06/18 07:00 Intake Total 960 ml Output Total 1925 ml Balance -965 ml Height & Weight Height: 5'10.00" Weight: 244lbs. 1.0oz. 110.140128bm; 35.0 BMI Method:Stated General Appearance: No Apparent Distress, WD/WN, Anxious HEENT: PERRL/EOMI, Pharynx Normal Neck: Full Range of Motion, Normal Inspection, Non Tender Respiratory: Chest Non Tender, No Accessory Muscle Use, No Respiratory Distress , Decreased Breath Sounds Cardiovascular: Regular Rate, Rhythm, No Edema Capillary Refill: Less Than 3 Seconds Gastrointestinal: normal bowel sounds, non tender, soft Extremity: Normal Capillary Refill, Normal Inspection Neurologic/Psychiatric: Alert Skin: Normal Color, Warm/Dry Lymphatic: No Adenopathy Results Lab Laboratory Tests 10/05/18 08:40 10/06/18 04:45 Assessment/Plan Assessment/Plan Afib/flutter with RVR -Cardiology following -Hep, cardizem gtt -- now off Tobacco use -Education Osteoarthritis -Scheduled for knee replacement with MARGARET Sanchez DO Oct 06, 2018 05:31
[2018-10-06] MEDS ORDERED: KCL 20 MEQ TAB (K-DUR) PO SCH (06:00)
[2018-10-06] MEDS ORDERED: MAGNESIUM 1 GM/100 ML IVPB 100 ML IV SCH (06:00)
[2018-10-06] MEDS ORDERED: POTASSIUM CL 10MEQ/50ML IVPB 50 ML IV SCH (06:00)
[2018-10-06] MEDS ORDERED: fentaNYL INJECTION 250 MCG/5 ML AMP ONE (06:45)
[2018-10-06] MEDS ORDERED: MIDAZOLAM 2 MG/2 ML (VERSED) VIAL ONE (06:45)
[2018-10-06] MEDS ORDERED: SEVOFLURANE (ULTANE) 15 ML INHAL SOLN ONE (06:45)
[2018-10-06] MEDS ORDERED: GLYCOPYRROLATE 0.2 MG/ML (ROBINUL) 2 ML VIAL ONE (06:45)
[2018-10-06] MEDS ORDERED: ROCURONIUM 10 MG/ML 5 ML SYRINGE IV ONE (06:45)
[2018-10-06] MEDS ORDERED: proPOfol 200 MG/20 ML (DIPRIVAN) VIAL IV ONE (06:45)
[2018-10-06] MEDS ORDERED: ONDANSETRON 4 MG/2 ML (SDV) Z0FRAN ONE (06:45)
[2018-10-06] MEDS ORDERED: DEXAMETHASONE 10 MG/ML (DECADRON) 1 ML VIAL ONE (06:45)
[2018-10-06] MEDS ORDERED: NEOSTIGMINE 1 MG/ML 5 ML SYRINGE ONE (06:45)
[2018-10-06] MEDS ORDERED: LIDOCAINE PF 2% 5 ML (XYLOCAINE) VIAL ONE (06:45)
--- NOTE | 2018-10-06 07:10 | NUR ---
Pt taken to OR at this time by OR staff. VSS at time of transfer. Will await pt return.
--- NOTE | 2018-10-06 07:16 | Progress Note-Post Operative ---
Post-Operative Progess Note Surgeon (s)/Sales Developer (s) Surgeon DAVID ALVES MD Sales Developer: Richar Peralta Pre-Operative Diagnosis left knee primary osteoarthritis Post-Operative Diagnosis left knee primary osteoarthritis Procedure & Operative Findings Date of Procedure 10/06/18 Procedure Performed/Findings left total knee arthroplasty Anesthesia Type GETA Estimated Blood Loss Estimated blood loss (mL): minimal Specimens/Packing Specimens Removed none Packing: none DAVID ALVES MD Oct 06, 2018 07:16
--- NOTE | 2018-10-06 07:16 | Progress Note-Pre Operative ---
Pre-Operative Progress Note H&P Reviewed The H&P was reviewed, patient examined and no changes noted. Date Seen by Provider: Oct 06, 2018 Time Seen by Provider: 07:15 Date H&P Reviewed: Oct 06, 2018 Time H&P Reviewed: 07:15 Pre-Operative Diagnosis: left knee primary osteoarthritis DAVID ALVES MD Oct 06, 2018 07:16
[2018-10-06] MEDS ORDERED: diphenhydrAMINE 50 MG/ML INJ (BENADRYL) IVP PRN (07:30)
[2018-10-06] MEDS ORDERED: morphine PCA 100 MG/100 ML BAG IV PRN (07:30)
[2018-10-06] MEDS ORDERED: ACETAMINOPHEN 325 MG TABLET PO PRN (07:30)
[2018-10-06] MEDS ORDERED: CEFUROXIME INJECTION 1,500 MG in WATER (STERILE) FOR INJECTION 15 ML IV ONE (07:30)
[2018-10-06] MEDS ORDERED: ONDANSETRON 4 MG/2 ML (SDV) Z0FRAN IVP PRN ×2 (07:30→09:45)
[2018-10-06 07:37] LABS: INR 0.9 (0.8-1.4); PROTHROMBIN TIME PATIENT 12.9 SEC (12.2-14.7)
[2018-10-06] MEDS ORDERED: INTRA-ARTICULAR IU ONE ×5 (07:45)
[2018-10-06] MEDS ORDERED: LACTATED RINGERS 1,000 ML IV PRN (08:02)
[2018-10-06] MEDS ORDERED: PHENYLEPHRINE 100 MCG/ML 10 ML (ANESTHESIA) SYR ONE (08:14)
[2018-10-06] MEDS ORDERED: ESMOLOL 100 MG/10 ML (BREVIBLOC) VIAL ONE (08:14)
[2018-10-06] MEDS ORDERED: DILTIAZEM 25 MG/5 ML INJ (CARDIZEM) VIAL ONE ×2 (08:38→08:41)
[2018-10-06] MEDS ORDERED: LABETALOL HCL 20 MG/4 ML VIAL ONE (08:49)
[2018-10-06] MEDS: DILTIAZEM IV FOR DRIP 125 MG in NS (IVPB) 100 ML IV SCH (08:59)
[2018-10-06] MEDS ORDERED: OXYC1TAB87 PO (09:30)
--- NOTE | 2018-10-06 09:34 | D/C HH Face to Face Order ---
D/C Face to Face Orders Instructions for Patient Via [facility], Patient Instructions/FollowUp: three weeks Physician to follow Patient: three weeks Discharge Diet for Home: Regular Diet Patient Data-Allergies,Ht & Wt Patient Allergies: Coded Allergies: No Known Drug Allergies (Unverified , 07/27/16) Height (Feet): 5 Height (Inches): 10.00 Weight (Pounds): 245 Weight (Ounces): 0.0 Home Health Need/Face to Face Date of Face to Face: Oct 06, 2018 Clinical Findings: Instability, Muscle weakness, Pain with ambulation, Unsteady gait I have seen Pt [id number]: Yes Discharged To: Home Diagnosis/Conditions: left total knee arthroplasty Patient is Homebound due to: Minesh fall risk due to instabilty, Muscle weakness, Pain w/ambulation Homebound Status Due to the above stated illness, injury or surgical procedure (medical condition or diagnosis) and associated clinical findings, the patient is homebound because of his/her inability to leave home except with aid of a supportive device and/or person AND leaving the home requires a considerable and taxing effort or is medically contraindicated. Pt req the following assistanc: Walker Home Health Nursing Orders Home Health Services Order: Physical Therapy-Evaluate & Treat Dc left knee caridad and apply steri strips 10/20/18 Home Health Infusion Therapy Line Start Date: Oct 05, 2018 Therapy Orders Therapy Orders: Physical Therapy, PT to assess for OT Therapy Specific Orders: Eval assistive deivces, Gait training, Increase strength/endurance, Provider maintenance therapy, Restore ROM Certify Stmt I certify that this patient is under my care and that I, a nurse practitioner or a physician; a clinical project assistant working with me, had a face to face encounter that - meets the physician face to face encounter requirements with this patient as dated. DAVID ALVES MD Oct 06, 2018 09:34
[2018-10-06] MEDS ORDERED: HYDROmorphone 2 MG/ML VIAL (DILAUDID) ONE (09:38)
[2018-10-06] MEDS ORDERED: HYDROmorphone 2 MG/ML VIAL (DILAUDID) IV ONE (09:45)
[2018-10-06] MEDS ORDERED: morphine INJ 10 MG/ML 1ML (SYR OR VIAL) IVP ONE (09:45)
--- NOTE | 2018-10-06 10:15 | Progress Note-Standard ---
Standard Progress Note Progress Notes/Assess & Plan Date Seen by a Provider: Oct 06, 2018 Time Seen by a Provider: 10:14 Progress/Assessment & Plan post op check no complaints denies paresthesias radiographs--HW well positioned without fracture LLE--intact DF and PF of toes and ankle. iNtact sensation throughout. 2 plus DP pulse with brisk cap refill s/p LTKA mobilize as able DAVID ALVES MD Oct 06, 2018 10:15
--- NOTE | 2018-10-06 10:30 | NUR ---
Pt returned from OR at this time. VSS. Cardizem gtt infusing at this time. New orders received to give oral Cardizem then pt ok to transfer 30mins post medication. Morphine ELECTRICAL REPAIRER started during this time. Will continue to monitor.
--- NOTE | 2018-10-06 10:36 | Cardiology Progress Note ---
Subjective Date Seen by Provider: Oct 06, 2018 Time Seen by Provider: 10:34 Subjective/Events-last exam Patient is in bed, had surgery earlier today was tachycardic during surgery and he was started on Cardizem drip during surgery in addition to the IV beta blockers. Recovering well. Still tachycardic at this time. Review of Systems General: No Chills, No Night Sweats, No Fatigue, No Malaise, No Appetite, No Other HEENT: No Head Aches, No Visual Changes, No Eye Pain, No Ear Pain, No Dysphasia, No Sinus Congestion, No Post Nasal Drip, No Sore Throat, No Other Pulmonary: No Dyspnea, No Cough, No Pleuritic Chest Pain, No Other Cardiovascular: No: Chest Pain, Palpitations, Orthopnea, Paroxysmal Noc. Dyspnea, Edema, Lt Headedness, Other Objective-Cardiology Exam Last Set of Vital Signs Vital Signs 10/06/18 10/06/18 10/06/18 07:00 09:32 10:10 Temp 97.6 Pulse 101 Resp 20 B/P (MAP) 120/73 (89) Pulse Ox 96 O2 Delivery Nasal Cannula O2 Flow Rate 3 Capillary Refill : Less Than 3 Seconds I&O Intake and Output 10/06/18 00:00 Intake Total 960 ml Output Total 1125 ml Balance -165 ml Intake Oral 960 ml Output Urine Total 1125 ml # Voids 3 # Bowel Movements 2 Daily Weight Change No General: Alert, Oriented X3, Cooperative, No Acute Distress HEENT: Atraumatic, PERRLA Neck: Supple, No JVD Lungs: Clear to Auscultation, Normal Air Movement Heart: Normal S1, Normal S2, No Murmurs, Other (atrial flutter with rapid ventricular response) Abdomen: Normal Bowel Sounds, Soft, No Tenderness, No Hepatosplenomegaly, No Masses Extremities: No Clubbing, No Cyanosis, No Edema, Normal Pulses, No Tenderness/Swelling Skin: No Rashes, No Breakdown, No Significant Lesion Neuro: Normal Gait, Normal Speech, Strength at 5/5 X4 Ext, Normal Tone, Sensation Intact Psych/Mental Status: Mental Status NL, Mood NL Results Lab Laboratory Tests 10/06/18 04:45 A/P-Cardiology Admission Diagnosis Atrial flutter Tachycardia Hypertension Arthritis Assessment/Plan Atrial flutter with rapid ventricular response unknown duration, was better controlled on Cardizem drip, I will wean him off the Cardizem drip and start him on oral Cardizem in addition to oral beta blockers and monitor tolerance and response. Patient will be initiated on Eliquis 5 mg twice daily and monitored to reduce the risk of stroke Hypertension, good control at this time. Continue to monitor Status post knee replacement surgery done today on October 06, 2018. By Dr. Johnson. Continue to monitor Arthritis, scheduled for knee replacement surgery with Dr. Johnson Questionable hyperlipidemia I will evaluate lipid profile, CMP and TSH Obesity, BMI 35, we discussed weight loss and the risk of sleep apnea. Tobaccoism, educated on smoking cessation Clinical Quality Measures DVT/VTE Risk/Contraindication: Risk Factor Score Per Nursin RFS Level Per Nursing on Admit: 4+=Very High MONIK BRITO MD Oct 06, 2018 10:36
--- NOTE | 2018-10-06 11:01 | NUR ---
IRF Evaluation Order received to evaluate patient for the ARU. Patient underwent L total knee replacement, today. Will continue to follow patient's progress, in relation to evaluation. Thank you for this referral. Addendum: 10/07/18 at 1229 by AUGUST Ria CASTAÑEDA SS PT note reviewed. It appears the patient is ambulating (500ft, FWW) and transferring with modified independence; therefore, the patient does not require intensive therapies, at this time.
[2018-10-06] MEDS: SENNA W/DOCUSATE (SENOKOT S) TABLET PO SCH ×2 (11:04→20:56)
[2018-10-06] MEDS: DILTIAZEM 60 MG (CARDIZEM) TAB PO SCH ×3 (11:04→23:54)
[2018-10-06] MEDS: NS IV 1000 ML 1,000 ML IV SCH ×3 (11:06→23:54)
--- NOTE | 2018-10-06 11:45 | Diagnostic Imaging Report ---
INDICATION: Postop knee replacement. COMPARISON: None. FINDINGS: Two views of the left knee were obtained. Expected postoperative changes are seen from left knee total arthroplasty. Femoral and tibial components appear well-seated. There is no evidence of periprosthetic fracture. There is a small amount of subcutaneous emphysema in the soft tissues over the knee. Skin caridad are seen centrally over the anterior aspect of the knee. No unexpected radiopaque foreign bodies are identified. IMPRESSION: Expected postsurgical changes from left knee total arthroplasty, as described above. No unexpected radiopaque foreign bodies. Dictated by: Dictated on workstation # [id number]
--- NOTE | 2018-10-06 13:50 | Physical Therapy Evaluation ---
PT Evaluation-General Medical Diagnosis Admission Date Oct 05, 2018 at 08:05 Medical Diagnosis: left TKA Onset Date: Oct 06, 2018 Therapy Diagnosis Therapy Diagnosis: impaired mobility, strength, endurance Height/Weight Height (Feet): 5 Height (Inches): 10.00 Weight (Pounds): 245 Weight (Ounces): 0.0 Precautions Precautions/Isolations: Fall Prevention, Standard Precautions Referral Physician: Richar Salamanca Reason for Referral: Evaluation/Treatment Medical History Pertinent Medical History: Arthritis, HTN Additional Medical History Atrial flutter Tachycardia Reviewed History: Yes Social History Home: Single Level Current Living Status: Alone Entry Into Home: Stairs With Railing PT Steps Into Home: 2 Patient states that he doesn't really have a railing but has a pole or something similar to hold onto. Prior/Core FIM Prior Level of Function Therapy Code Descriptions/Definitions Functional Roane Measure: 0=Not Assessed/NA 4=Minimal Assistance 1=Total Assistance 5=Supervision or Setup 2=Maximal Assistance 6=Modified Roane 3=Moderate Assistance 7=Complete Roane Therapy Quality Codes: 6 Independent with activity with or without an assistive device 5 Patient requires set up or clean up by helper. Patient completes activity by themselves 4 Supervision or touching assist (CGA). [place] provide cues , steadying assist 3 The helper provides less than half the effort to complete the activity 2 The helper provides more than half the effort to complete the activity 1 Dependent. The helper does all the effort to complete an activity 7 Patient refused to complete or attempt activity 9 The patient did not perform the activity before the current illness or injury 88 Not attempted due to Medical conditions or safety concerns Functional Abilities and Goals: Independent: Patient completed the activities by him/herself, with or without an assistive device, with no assistance from a helper. Needed Some Help: Patient needed partial assistance from another person to complete activities. Dependent: A helper completed the activities for the patient. Unknown: Not Applicable: Bed Mobility: 6 Transfers (B,C,W/C) (FIM): 6 Gait: 6 Stairs: 6 Indoor Mobility (Ambulation): Independent Stairs: Independent Prior Device Use: SPC PT Evaluation-Current Subjective Patient in bed pre tx, agrees to PT, has no pain at rest but states he has 8/10 pain with movement of left knee. Pt/Family Goals to be independent at home Objective Patient Orientation: Person, Place, Situation Attachments: Oxygen, Polar Pack, IV ROM/Strength ROM Lower Extremities left knee flexion 85 degrees, extension +2 degrees Strength Lower Extremities NT due to recent surgery Neuromuscular (Tone, Coordination, Reflexes) NT Sensory Vision: Functional Hearing: Functional Sensation Right Lower Extremit: Intact Sensation Left Lower Extremity: Intact Transfers Therapy Code Descriptions/Definitions Functional [place] Measure: 0=Not Assessed/NA 4=Minimal Assistance 1=Total Assistance 5=Supervision or Setup 2=Maximal Assistance 6=Modified Roane 3=Moderate Assistance 7=Complete Roane Transfers (B, C, W/C) (FIM): 4 Scootin Rollin Supine to/from Sit: 5 Sit to/from Stand: 4 Somewhat impulsive with transfers, CGA for sit to stand. He is able to bear weight on left leg without buckling. Gait Mode of Locomotion: Walk Anticipated Mode of Locomotion: Walk Gait (FIM): 4 Distance: 150' Gait Level of Assist: 4 Gait Persons Needed: 1 Gait Assistive Device: FWW Comments/Gait Description Brisk ambulation, good step-through and heel strike. Balance Sitting Static: Normal Sitting Dynamic: Normal Standing Static: Good Standing Dynamic: Good Treatment LLE total knee protocol x10 (AP, QS, HS, SAQ, SLR), CPM not donned at this time because he is about to move to the 4th floor, it will be put on him a little later. Assessment/Needs Patient has impaired mobility, strength, endurance, ROM. Patient BTB post tx with nurse call, phone, tray, all needs met. Rehab Potential: Fair PT Short Term Goals Short Term Goals Time Frame: Oct 13, 2018 Transfers (B,C,W/C) (FIM): 5 Gait (FIM): 5 Gait Distance Comment: 200' Gait Level of Assist: 5 Gait Assistive Device: FWW PT Plan Problem List Problem List: Activity Tolerance, Functional Strength, Safety, Balance, Gait, Transfer, Bed Mobility, ROM Treatment/Plan Treatment Plan: Continue Plan of Care Treatment Plan: Bed Mobility, Education, Functional Activity Flora, Functional Strength, Gait, Safety, Therapeutic Exercise, Transfers Treatment Duration: Oct 13, 2018 Frequency: 11 times per week Estimated Hrs Per Day: .25 hour per day (15-30') Patient and/or Family Agrees t: Yes Safety Risks/Education Patient Education: Gait Training, Transfer Techniques, Correct Positioning, Safety Issues Teaching Recipient: Patient Teaching Methods: Demonstration, Discussion Response to Teaching: Reinforcement Needed Discharge Recommendations Plan Patient will perform bed mobility and transfer training, balance and endurance training, functional strengthening, stair training, gait training, and education, to improve functional mobility and independence at home. Therapy D/C Recommendations: Home w/ Family Support Time/GCodes Time In: 1315 Time Out: 1335 Total Billed Treatment Time: 20 Total Billed Treatment 1 visit MERRILL 20' BOBY MARIA PT Oct 06, 2018 13:50
--- NOTE | 2018-10-06 13:55 | OPERATIVE REPORT ---
DATE OF SERVICE: PREOPERATIVE DIAGNOSIS: Left knee primary osteoarthritis. POSTOPERATIVE DIAGNOSIS: Left knee primary osteoarthritis. PROCEDURE PERFORMED: Left total knee arthroplasty. SURGEON: Rony Alves MD. TRAIN SYSTEM OPERATOR: ESTHELA Dash. ANESTHESIA: General endotracheal by Dr. Paul. TOURNIQUET TIME: Approximately 73 minutes at 300 mmHg. ESTIMATED BLOOD LOSS: Minimal. DRAINS: None. COMPLICATIONS: None. MATERIALS: MicroPort cemented size 6 femur, cemented size 6 tibia with a 10 mm insert and cemented size 35 patella. POSTOP PLANS: Routine protocol. The patient was transferred to the recovery room awake and in stable condition. HISTORY: The patient is a 58-year-old gentleman with a longstanding progressive left knee pain. He has undergone treatment with injections, anti-inflammatories and rest without relief. Radiographs revealed severe medial and patellofemoral arthrosis. He reported progressive functional impairment to the point where it was interfering with his activities of daily living and he was unable to work. Because of this, the patient elected to proceed with surgical intervention. DESCRIPTION OF PROCEDURE: After risks and benefits of procedure were discussed and questions were answered, an informed consent was signed and placed in the chart. The operative site was confirmed in the preoperative holding area initialed by the surgeon. The patient was transferred to the operating room. After adequate levels of general endotracheal anesthetic were obtained, a timeout was called, confirming the operative site. The left lower extremity was then prepped and draped in the usual sterile fashion with the leg elevated and the knee flexed. Tourniquet was inflated to 300 mmHg. A standard anterior approach was utilized. Hemostasis was obtained with cautery. Medial parapatellar arthrotomy was performed leaving 1 cm cuff on the patella for later reattachment. A portion of the fat pad was resected. The ACL was resected. A subperiosteal release was performed in the proximal medial tibia being careful to stay on the bony surface. Intramedullary guide was passed into the femur and the distal cutting block was placed. Cut was made and the femur was sized to a size 6. The 6 cutting block was placed parallel to the epicondylar axis and cuts were made from posterior to anterior. Subperiosteal release was then carefully performed on the posterior distal femur, being careful to stay on the bony surface. The intramedullary guide was then passed into the tibia. The cutting block was placed. The drop shanelle transected the intermalleolar axis and the cut was made. The six baseplate was placed and felt to be in excellent position with a drop shanelle. This was then pinned into position and prepared with the drill and keel punch. The femoral trial was placed and the trochlear cut was made. The patella was then prepared by using the freehand technique and resected 10 mm off the undersurface. The peg guide was placed and the peg holes were drilled. The 35 trial was placed with a 10 mm insert. Full extension was easily obtained, 130 degrees of flexion was easily obtained. There was no anterior/posterior or medial laxity in flexion or extension. There is 1+ varus laxity in full extension, but this was felt to be acceptable. The trials were removed. The periarticular block was placed in the posterior capsule, medial and lateral retinaculum, extensor mechanism and subcutaneous tissues. The bone ends were irrigated and dried and the tibial baseplate was cemented into position. Excess cement was removed. The superior surface was irrigated and dried and the polyethylene insert was placed. The femoral prosthesis was cemented into position. Excess cement was removed. The knee was brought into full extension until cement had cured. The undersurface of patella was irrigated and dried. The patellar button was cemented into position. Excess cement was removed. Once cement had cured, the knee was taken through a range of motion. Full extension was easily obtained, 120 degrees of flexion with gravity was easily obtained. The patella tracked well. There was no anterior/posterior or medial laxity in flexion or extension. There is 1+ varus laxity in full extension, but again was felt to be acceptable. The joint was further irrigated with pulse lavage. The arthrotomy was closed with #2 Tevdek in [id number] interrupted fashion. Subcutaneous tissues were irrigated using a total of 6 liters throughout the procedure. An #0 Vicryl was used for the deep subcutaneous tissue, 2-0 Vicryl for the superficial subcutaneous tissue, caridad used on the skin. A soft dressing was applied. The tourniquet was deflated and the patient was transferred to the recovery room awake and in stable condition. Job ID: [id number] DocumentID: [id number] Dictated Date: 10/06/2018 09:29:22 Exchange Consultant Date: 10/06/2018 13:55:04 Dictated By: RONY ALVES MD
--- NOTE | 2018-10-06 14:16 | NUR ---
Pt transferred to room 430 at this time. VSS upon transfer. Report called to TERESA Mahoney who will assume pt care on arrival to new room. Pt transferred via bed with personal belongings at bedside at this time. Pt transferred with IV pump and morphine LAWN SPECIALIST infusing.
[2018-10-06] MEDS ORDERED: CEFUROXIME INJECTION 750 MG in WATER (STERILE) FOR INJECTION 10 ML IV SCH (15:30)
[2018-10-06] MEDS: CEFUROXIME INJECTION 750 MG in WATER (STERILE) FOR INJECTION 10 ML IV SCH ×2 (18:07→23:55)
[2018-10-06] MEDS: meTOprolol TARTRATE 25 MG (LOPRESSOR) TABLET PO SCH (20:56)
[2018-10-07] VITALS: BP 91/54
[2018-10-07 03:20] VITALS: BP 110/78
[2018-10-07] MEDS: MULTIVIT W/MINERALS TAB (THERAGRAN M) PO SCH (06:37)
[2018-10-07] MEDS: DILTIAZEM 60 MG (CARDIZEM) TAB PO SCH ×3 (06:37→18:07)
[2018-10-07 07:45] LABS: BASOPHILS % (AUTO) 0 % (0-10); EOSINOPHILS % (AUTO) 0 % (0-10); HEMATOCRIT 38 % (40-54); HEMOGLOBIN 12.7 G/DL (13.3-17.7); LYMPHOCYTES # (AUTO) 0.8 X 10^3 (1.0-4.0); LYMPHOCYTES % (AUTO) 5 % (12-44); MEAN CORPUSCULAR HEMOGLOBIN 30 PG (25-34); MEAN CORPUSCULAR HGB CONC 33 G/DL (32-36); MEAN CORPUSCULAR VOLUME 89 FL (80-99); MEAN PLATELET VOLUME 9.6 FL (7.4-10.4); MONOCYTES # (AUTO) 1.2 X 10^3 (0.0-1.0); MONOCYTES % (AUTO) 7 % (0-12); NEUTROPHILS # (AUTO) 15.9 X 10^3 (1.8-7.8); NEUTROPHILS % (AUTO) 89 % (42-75); PLATELET COUNT 252 10^3/uL (130-400); RED CELL DISTRIBUTION WIDTH 15.2 % (10.0-14.5)
[2018-10-07 08:00] VITALS: BP 139/79
--- NOTE | 2018-10-07 08:06 | Progress Note-Standard ---
Standard Progress Note Progress Notes/Assess & Plan Date Seen by a Provider: Oct 07, 2018 Time Seen by a Provider: 08:05 Progress/Assessment & Plan post op check no complaints denies paresthesias radiographs--HW well positioned without fracture LLE--intact DF and PF of toes and ankle. iNtact sensation throughout. 2 plus DP pulse with brisk cap refill s/p LTKA mobilize as able Final Diagnosis no complaints Vital Signs Date Time Temp Pulse Resp B/P (MAP) Pulse Ox O2 Delivery O2 Flow Rate FiO2 10/07/18 07:00 110 10/07/18 05:54 18 10/07/18 03:20 97.8 67 18 110/78 (89) 95 Room Air 10/07/18 01:00 108 10/07/18 00:00 98.4 80 20 91/54 (66) 93 Room Air 10/06/18 20:40 Room Air 10/06/18 20:40 18 10/06/18 20:14 97.8 110 18 114/67 (83) 94 Room Air 10/06/18 19:00 126 10/06/18 16:13 98.3 68 18 147/81 (103) 95 Room Air 10/06/18 14:25 97.5 78 20 110/68 (82) 95 Room Air 10/06/18 13:00 120 10/06/18 12:00 Room Air 10/06/18 12:00 115 20 111/78 (89) 98 Room Air 10/06/18 11:30 97.5 10/06/18 11:00 128 14 126/96 (106) 92 Room Air 10/06/18 10:35 97.6 20 95 Nasal Cannula 3 10/06/18 10:20 20 94 Nasal Cannula 3 10/06/18 10:10 20 96 Nasal Cannula 3 10/06/18 10:00 20 95 OxyMask 5 10/06/18 09:50 20 96 OxyMask 5 10/06/18 09:40 20 100 OxyMask 8 10/06/18 09:32 97.6 20 100 OxyMask 8 I & O 10/07/18 07:00 Intake Total 2945 ml Output Total 2400 ml Balance 545 ml Laboratory Tests Test 10/07/18 07:35 Range/Units White Blood Count 18.0 H 4.3-11.0 10^3/uL Red Blood Count 4.29 L 4.35-5.85 10^6/uL Hemoglobin 12.7 L 13.3-17.7 G/DL Hematocrit 38 L 40-54 % Mean Corpuscular Volume 89 80-99 FL Mean Corpuscular Hemoglobin 30 25-34 PG Mean Corpuscular Hemoglobin Concent 33 32-36 G/DL Red Cell Distribution Width 15.2 H 10.0-14.5 % Platelet Count 252 130-400 10^3/uL Mean Platelet Volume 9.6 7.4-10.4 FL Neutrophils (%) (Auto) 89 H 42-75 % Lymphocytes (%) (Auto) 5 L 12-44 % Monocytes (%) (Auto) 7 0-12 % Eosinophils (%) (Auto) 0 0-10 % Basophils (%) (Auto) 0 0-10 % Neutrophils # (Auto) 15.9 H 1.8-7.8 X 10^3 Lymphocytes # (Auto) 0.8 L 1.0-4.0 X 10^3 Monocytes # (Auto) 1.2 H 0.0-1.0 X 10^3 Eosinophils # (Auto) 0.0 0.0-0.3 10^3/uL Basophils # (Auto) 0.0 0.0-0.1 10^3/uL LLE--dressing intact. Jordin Ramirezs s/p ELANA PT/OT DAVID ALVES MD Oct 07, 2018 08:06
[2018-10-07 08:07] LABS: ALANINE AMINOTRANSFERASE 16 U/L (0-55); ALBUMIN 3.6 GM/DL (3.2-4.5); ALKALINE PHOSPHATASE 53 U/L (40-136); BILIRUBIN,TOTAL 0.3 MG/DL (0.1-1.0); BUN/CREATININE RATIO 10; CALCIUM 8.7 MG/DL (8.5-10.1); CARBON DIOXIDE 20 MMOL/L (21-32); CHLORIDE 107 MMOL/L (98-107); CHOLESTEROL 188 MG/DL (< 200); CREATININE SERUM 0.67 MG/DL (0.60-1.30); GFR ESTIMATED > 60; GLUCOSE 144 MG/DL (70-105); HDL CHOLESTEROL 39 MG/DL (40-60); PHOSPHORUS 2.1 MG/DL (2.3-4.7); POTASSIUM 4.3 MMOL/L (3.6-5.0); SODIUM 136 MMOL/L (135-145); TOTAL PROTEIN 6.4 GM/DL (6.4-8.2); TRIGLYCERIDES 83 MG/DL (<150); VLDL CHOLESTEROL 17 MG/DL (5-40)
[2018-10-07] MEDS: APIXABAN 5 MG (ELIQUIS) TABLET PO SCH ×3 (08:36→19:54)
[2018-10-07 08:37] LABS: ANISOCYTOSIS SLIGHT; BAND NEUTROPHILS 1 %; BASOPHILS % (MANUAL) 0 %; EOSINOPHILS % (MANUAL) 0 %; LYMPHOCYTES % (MANUAL) 3 %; MONOCYTES % (MANUAL) 10 %; NEUTROPHILS % (MANUAL) 86 %
[2018-10-07] MEDS: oxyCODONE/APAP 5/325MG (PERCOCET 5) TABLET PO PRN ×4 (08:37→18:07)
[2018-10-07] MEDS: SENNA W/DOCUSATE (SENOKOT S) TABLET PO SCH ×2 (08:38→19:54)
[2018-10-07] MEDS: meTOprolol TARTRATE 25 MG (LOPRESSOR) TABLET PO SCH ×2 (08:55→19:54)
--- NOTE | 2018-10-07 09:24 | Cardiology Progress Note ---
Subjective Date Seen by Provider: Oct 07, 2018 Time Seen by Provider: 09:23 Subjective/Events-last exam patient is laying down in bed, no new complaint. Denied any chest pain, recovering from surgery well. Review of Systems General: No Chills, No Night Sweats, No Fatigue, No Malaise, No Appetite, No Other HEENT: No Head Aches, No Visual Changes, No Eye Pain, No Ear Pain, No Dysphasia, No Sinus Congestion, No Post Nasal Drip, No Sore Throat, No Other Pulmonary: No Dyspnea, No Cough, No Pleuritic Chest Pain, No Other Cardiovascular: No: Chest Pain, Palpitations, Orthopnea, Paroxysmal Noc. Dyspnea, Edema, Lt Headedness, Other Objective-Cardiology Exam Last Set of Vital Signs Vital Signs 10/06/18 10/07/18 10:35 08:00 Temp 97.2 Pulse 98 Resp 18 B/P (MAP) 139/79 (99) Pulse Ox 91 O2 Delivery Room Air O2 Flow Rate 3 Capillary Refill : Less Than 3 Seconds I&O Intake and Output 10/07/18 00:00 Intake Total 2375 ml Output Total 2450 ml Balance -75 ml Intake Oral 1350 ml IV Total 1025 ml Output Urine Total 2450 ml General: Alert, Oriented X3, Cooperative, No Acute Distress HEENT: Atraumatic, PERRLA Neck: Supple, No JVD Lungs: Clear to Auscultation, Normal Air Movement Heart: Normal S1, Normal S2, No Murmurs, Other (atrial flutter with rapid ventricular response) Abdomen: Normal Bowel Sounds, Soft, No Tenderness, No Hepatosplenomegaly, No Masses Extremities: No Clubbing, No Cyanosis, No Edema, Normal Pulses, No Tenderness/Swelling Skin: No Rashes, No Breakdown, No Significant Lesion Neuro: Normal Gait, Normal Speech, Strength at 5/5 X4 Ext, Normal Tone, Sensation Intact Psych/Mental Status: Mental Status NL, Mood NL Results Lab Laboratory Tests 10/07/18 07:35 A/P-Cardiology Admission Diagnosis Atrial flutter Tachycardia Hypertension Arthritis Assessment/Plan Atrial flutter with rapid ventricular response unknown duration, planning to proceed with [place] and electrical cardioversion tomorrow morning. Continue on Eliquis for now and monitor H&H Hypertension, good control at this time. Continue to monitor Status post knee replacement surgery done today on October 06, 2018. By Dr. Johnson. Continue to monitor Arthritis, scheduled for knee replacement surgery with Dr. Johnson Questionable hyperlipidemia I will evaluate lipid profile, CMP and TSH Obesity, BMI 35, we discussed weight loss and the risk of sleep apnea. Tobaccoism, educated on smoking cessation Clinical Quality Measures DVT/VTE Risk/Contraindication: Risk Factor Score Per Nursin RFS Level Per Nursing on Admit: 4+=Very High MONIK BRITO MD Oct 07, 2018 09:24
--- NOTE | 2018-10-07 09:40 | Physical Therapy Daily Note ---
PT Daily Note-Current Subjective Patient agree to PT. Pain medication has been issued. No c/o. Pain Numeric Pain Scale: 5-Moderate Pain Location: Left Location Body Site: Knee Pain Description: Acute Mental Status Patient Orientation: Normal For Age Attachments: IV Transfers Therapy Code Descriptions/Definitions Functional [place] Measure: 0=Not Assessed/NA 4=Minimal Assistance 1=Total Assistance 5=Supervision or Setup 2=Maximal Assistance 6=Modified [place] 3=Moderate Assistance 7=Complete [place] Therapy Quality Codes: 6 Independent with activity with or without an assistive device 5 Patient requires set up or clean up by helper. Patient completes activity by themselves 4 Supervision or touching assist (CGA). [place] provide cues , steadying assist 3 The helper provides less than half the effort to complete the activity 2 The helper provides more than half the effort to complete the activity 1 Dependent. The helper does all the effort to complete an activity 7 Patient refused to complete or attempt activity 9 The patient did not perform the activity before the current illness or injury 88 Not attempted due to Medical conditions or safety concerns Transfers (B, C, W/C) (FIM): 6 Scootin Supine to/from Sit: 6 Sit to/from Stand: 6 Bed to/from Chair: 6 Gait Training Gait (FIM): 6 Distance (FIM): 3=150 ft Distance: 500' Gait Level of Assist: 6 Gait Assistive Device: FWW slightly antalgic, functional gait sequence Exercises Supine Ex: Ankle pumps, Quad Set, Heel Slides, Straight leg raise Supine Reps: 15 Seated Therapy Exercises: Ankle pumps, Long arc quads Seated Reps: 15 Assessment Patient tolerated treatment well and is up in recliner with needs met. PT to increase activity as tolerated by patient. PT Short Term Goals Short Term Goals Time Frame: Oct 13, 2018 Transfers (B,C,W/C) (FIM): 5 Gait (FIM): 5 Gait Distance Comment: 200' Gait Level of Assist: 5 Gait Assistive Device: FWW PT Plan Treatment/Plan Treatment Plan: Continue Plan of Care Treatment Plan: Bed Mobility, Education, Functional Activity [place], Functional Strength, Gait, Safety, Therapeutic Exercise, Transfers Treatment Duration: Oct 13, 2018 Frequency: 11 times per week Estimated Hrs Per Day: .25 hour per day (15-30') Patient and/or Family Agrees t: Yes Time/GCodes Time In: 810 Time Out: 833 Total Billed Treatment Time: 23 Total Billed Treatment 1 visit EX 10 min GT 13 min VALERIE FERGUSON PT Oct 07, 2018 09:40
--- NOTE | 2018-10-07 10:46 | Consultation-Hospitalist ---
HPI History of Present Illness: HPI/Chief Complaint CC: Medical management following left total knee replacement HPI: This is a 58yoWM clinic patient of [facility] who had an uncomplicated left total knee replacement following a new onset atrial flutter in prep for cardioversion tomorrow by Dr To. Patient reports his pain is improved. Smoking cessation was discussed. Urination is normal since surgery. Checked meds and labs and reviewed Dr To note. Source: patient, old records Exam Limitations: no limitations Date Seen 10/07/18 Attending Physician Christofer To MD PCP [place] Referring Physician Date of Admission Oct 05, 2018 at 08:05 Home Medications & Allergies Home Medications Reviewed patient Home Medication Reconciliation performed by pharmacy medication reconciliations dairy technician and/or nursing. Patients Allergies have been reviewed. Allergies Allergies Coded Allergies No Known Drug Allergies (Unverified07/27/16) Past Tbeyaez-Drkqiy-Tygatd Hx Past Med/Social Hx: Reviewed Nursing Past Med/Soc Hx, Reviewed and Corrections made Patient Social History Marrital Status: Employed/Student: employed Alcohol Use: Denies Use Alcohol Beverage of Choice: Beer Recreational Drug Use: Yes Drug of Choice: marajuana Type Used: Cigarettes 2nd Hand Smoke Exposure: Yes Physical Abuse Screen: No Sexual Abuse: No Recent Hopitalizations: No Immunizations Up To Date Tetanus Booster (TDap): Unknown Pediatric: Yes Seasonal Allergies Seasonal Allergies: No Past Medical History Surgeries: Abdominal, Adenoidectomy, Gallbladder, Orthopedic, Tonsillectomy new onset atrial flutter Reproductive: No Sexually Transmitted Disease: Yes HIV/AIDS: No Musculoskeletal: Arthritis Hearing Impairment: Hard of Hearing Psychosocial: Anxiety, Depression History of Blood Disorders: No Adverse Reaction to Blood [place]: No Family History Colon cancer 19 FATHER Dementia 19 FATHER Diabetes mellitus 19 FATHER Hypertension 19 FATHER G8 BROTHER Thyroid disease G8 SISTER Review of Systems Constitutional: see HPI EENTM: no symptoms reported Respiratory: no symptoms reported Cardiovascular: no symptoms reported Gastrointestinal: no symptoms reported Genitourinary: no symptoms reported Musculoskeletal: joint pain Skin: no symptoms reported Psychiatric/Neurological: No Symptoms Reported All Other Systems Reviewed Negative Unless Noted: Yes Physical Exam Physical Exam Vital Signs Vital Signs - First Documented 10/05/18 10/05/18 10/05/18 10/06/18 08:30 09:00 12:00 09:32 Temp 97.7 Pulse 111 Resp 19 B/P (MAP) 127/91 (103) Pulse Ox 97 O2 Delivery Room Air O2 Flow Rate 8 Capillary Refill : Less Than 3 Seconds Height, Weight, BMI Height: 5'10.00" Weight: 250lbs. 0.9oz. [id number]; 35.0 BMI Method:Stated General Appearance: No Apparent Distress, WD/WN, Chronically ill Eyes: Bilateral Eye Normal Inspection, Bilateral Eye PERRL HEENT: PERRL/EOMI, Normal ENT Inspection, Pharynx Normal Neck: Full Range of Motion, Normal Inspection, Non Tender, Supple, Carotid Bruit Respiratory: Chest Non Tender, Lungs Clear, Normal Breath Sounds, No Accessory Muscle Use, No Respiratory Distress Cardiovascular: Regular Rate, Rhythm, No Edema, No Gallop, No JVD, No Murmur, Normal Peripheral Pulses Gastrointestinal: Normal Bowel Sounds, No Organomegaly, No Pulsatile Mass, Non Tender, Soft Back: Normal Inspection, No CVA Tenderness, No Vertebral Tenderness Extremity: Normal Capillary Refill, Normal Inspection, Normal Range of Motion, Non Tender, No Calf Tenderness, No Pedal Edema Neurologic/Psychiatric: Alert, Oriented x3, No Motor/Sensory Deficits, Normal Mood/Affect Skin: Normal Color, Warm/Dry Lymphatic: No Adenopathy Results Results/Procedures Labs Laboratory Tests 10/06/18 04:45 10/07/18 07:35 Patient resulted labs reviewed. Assessment/Plan Assessment and Plan Assess & Plan/Chief Complaint Assessment: New onset atrial flutter planned for cardioversion tomorrow s/p left total knee replacement POD # 1 HTN Smoker Leukocytosis Plan: Cardioversion Monitor labs Smoking cessation Diagnosis/Problems Diagnosis/Problems (1) Atrial flutter Status: Acute (2) Smoker Status: Chronic (3) Status post left knee replacement Status: Acute (4) Leukocytosis Status: Acute Qualifiers: Leukocytosis type: leukemoid reaction Qualified Codes: D72.823 - Leukemoid reaction Clinical Quality Measures DVT/VTE Risk/Contraindication: Risk Factor Score Per Nursin RFS Level Per Nursing on Admit: 4+=Very High PATTIE NESBITT DO Oct 07, 2018 10:46
[2018-10-07 12:00] VITALS: BP 123/56
--- NOTE | 2018-10-07 13:06 | Physical Therapy Daily Note ---
PT Daily Note-Current Subjective Patient agrees to PT. Pain Numeric Pain Scale: 5-Moderate Pain Location: Left Location Body Site: Knee Pain Description: Acute Mental Status Patient Orientation: Normal For Age Attachments: IV Transfers Therapy Code Descriptions/Definitions Functional [place] Measure: 0=Not Assessed/NA 4=Minimal Assistance 1=Total Assistance 5=Supervision or Setup 2=Maximal Assistance 6=Modified [place] 3=Moderate Assistance 7=Complete [place] Therapy Quality Codes: 6 Independent with activity with or without an assistive device 5 Patient requires set up or clean up by helper. Patient completes activity by themselves 4 Supervision or touching assist (CGA). [place] provide cues , steadying assist 3 The helper provides less than half the effort to complete the activity 2 The helper provides more than half the effort to complete the activity 1 Dependent. The helper does all the effort to complete an activity 7 Patient refused to complete or attempt activity 9 The patient did not perform the activity before the current illness or injury 88 Not attempted due to Medical conditions or safety concerns Transfers (B, C, W/C) (FIM): 6 Scootin Supine to/from Sit: 6 Sit to/from Stand: 6 Gait Training Gait (FIM): 6 Distance (FIM): 3=150 ft Distance: >1000' Gait Level of Assist: 6 Gait Assistive Device: FWW fast pace, reciprocal pattern Exercises Supine Ex: Ankle pumps, Quad Set, Heel Slides, Straight leg raise Supine Reps: 15 Seated Therapy Exercises: Long arc quads Seated Reps: 15 Assessment Patient AROM left knee flexion/extension is 87 degrees to 5 degrees. Patient tolerated treatment well and returned to bed with needs met. PT Short Term Goals Short Term Goals Time Frame: Oct 13, 2018 Transfers (B,C,W/C) (FIM): 5 Gait (FIM): 5 Gait Distance Comment: 200' Gait Level of Assist: 5 Gait Assistive Device: FWW PT Plan Treatment/Plan Treatment Plan: Continue Plan of Care Treatment Plan: Bed Mobility, Education, Functional Activity [place], Functional Strength, Gait, Safety, Therapeutic Exercise, Transfers Treatment Duration: Oct 13, 2018 Frequency: 11 times per week Estimated Hrs Per Day: .25 hour per day (15-30') Patient and/or Family Agrees t: Yes Time/GCodes Time In: 1235 Time Out: 1258 Total Billed Treatment Time: 23 Total Billed Treatment 1 visit EX 13 min GT 10 min VALERIE FERGUSON PT Oct 07, 2018 13:06
--- NOTE | 2018-10-07 14:29 | Anesthesia-General Post-Op ---
General Patient Condition Mental Status/LOC: Same as Preop Cardiovascular: Satisfactory Nausea/Vomiting: Absent Respiratory: Satisfactory Pain: Controlled Complications: Absent Post Op Complications Complications None Follow Up Care/Instructions Patient Instructions None needed. Anesthesia/Patient Condition Patient Condition Patient is doing well, no complaints, stable vital signs, no apparent adverse anesthesia problems. No complications reported per nursing. LLUVIA YUN CRNA Oct 07, 2018 14:29
[2018-10-07 15:34] VITALS: BP 131/63
[2018-10-07] MEDS: NS IV 1000 ML 1,000 ML IV SCH (15:45)
--- NOTE | 2018-10-07 16:20 | NUR ---
CM/SS, respond to consult for discharge planning. Visited with patient after review of physician orders and recommendations. DME: Coordinated FWW with patient preferred agency, [facility] Agency understands to deliver FWW to patient hospital room in preparation for his weekend discharge. PLAN: Regarding post hospital therapies, [place] and requested OP therapy nearer this place rather than [facility]. Explored options closer to patient in consideration of distance and driving, his preferred option was [facility]. Spoke with Mamta talley, updated Dr. Johnson, referral completed with same therapy orders as for [facility]. Cardiac catheterization planned tomorrow, anticipate weekend discharge. Instructed [facility] staff to contact patient directly for scheduling of his sessions, provided his cell number and hospital room phone number. Discharge planning relative to left knee replacement complete. CM team to followup as necessary for other referrals that may arise. Addendum: 10/07/18 at 1752 by JESSICA MACDONALD Fax reconciliation confirmed it was transmitted but coordinator was out. CM staff to call: Mamta [facility] PH: [phone] to confirm she has the information and that she will contact patient directly to set up sessions.
--- NOTE | 2018-10-07 16:23 | Occupational Therapy Eval ---
OT Evaluation-General/PLF Medical Diagnosis Admission Date Oct 05, 2018 at 08:05 Medical Diagnosis: left TKA Onset Date: Oct 06, 2018 Therapy Diagnosis Therapy Diagnosis: decr self care Height/Weight Height (Feet): 5 Height (Inches): 10.00 Weight (Pounds): 250 Weight (Ounces): 0.9 Precautions Precautions/Isolations: Fall Prevention, Standard Precautions Safety Interventions: None Weight Bear Status Weight Bearing Restriction: Weight Bearing/Tolerated Referral Physician: Richar Salamanca Referral Reason: Evaluation/Treatment Medical History Pertinent Medical History: Arthritis, HTN, OA (L knee) Additional Medical History Bilat hand surgery. Umbilical hernia repair. Hep C Current History Admitted for elective L total knee and cardiac procedures Reviewed History: Yes Social History Home: Single Level (5th wheel trailer) Current Living Status: Alone Entry Into Home: Stairs With Railing Steps Into Home: 2 ADL-Prior Level of Function Therapy Code Descriptions/Definitions Functional [place] Measure: 0=Not Assessed/NA 4=Minimal Assistance 1=Total Assistance 5=Supervision or Setup 2=Maximal Assistance 6=Modified [place] 3=Moderate Assistance 7=Complete [place] Therapy Quality Codes: 6 Independent with activity with or without an assistive device 5 Patient requires set up or clean up by helper. Patient completes activity by themselves 4 Supervision or touching assist (CGA). [place] provide cues , steadying assist 3 The helper provides less than half the effort to complete the activity 2 The helper provides more than half the effort to complete the activity 1 Dependent. The helper does all the effort to complete an activity 7 Patient refused to complete or attempt activity 9 The patient did not perform the activity before the current illness or injury 88 Not attempted due to Medical conditions or safety concerns Functional Abilities and Goals: Independent: Patient completed the activities by him/herself, with or without an assistive device, with no assistance from a helper. Needed Some Help: Patient needed partial assistance from another person to complete activities. Dependent: A helper completed the activities for the patient. Unknown: Not Applicable: ADL PLOF Comments Pt reported that he has been able to manage all of his basic self care and also care for his home. 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 No pain mentioned. Appearance Alert, cooperative Mental Status/Objective Attachments: [place] Current Dentures/Partials: Yes Upper Extremity ROM Grossly WFL bilat ADL-Treatment ADL-Current Pt education on modified techniques for shower transfers and dressing. He is confident that he will be able to manage toileting in his home. No other self care concerns. He walked over 1000' feet mod I with PT today. DC OT with goal met Therapy Code Descriptions/Definitions Functional [place] Measure: 0=Not Assessed/NA 4=Minimal Assistance 1=Total Assistance 5=Supervision or Setup 2=Maximal Assistance 6=Modified [place] 3=Moderate Assistance 7=Complete [place] Therapy Quality Codes: 6 Independent with activity with or without an assistive device 5 Patient requires set up or clean up by helper. Patient completes activity by themselves 4 Supervision or touching assist (CGA). [place] provide cues , steadying assi st 3 The helper provides less than half the effort to complete the activity 2 The helper provides more than half the effort to complete the activity 1 Dependent. The helper does all the effort to complete an activity 7 Patient refused to complete or attempt activity 9 The patient did not perform the activity before the current illness or injury 88 Not attempted due to Medical conditions or safety concerns Education OT Patient Education: Modified ADL techniques, Purpose of tx/functional activities, Rehab process, Transfer techniques, Use of adapted equipment Teaching Recipient: Patient Teaching Methods: Discussion Response to Teaching: Verbalize Understanding OT Short Term Goals Short Term Goals Transfers (B,C,W/C) (FIM): 5 1=Demonstrate adherence to instructed precautions during ADL tasks. 2=Patient will verbalize/demonstrate understanding of assistive devices/modifications for ADL. 3=Patient will improve strength/tolerance for activity to enable patient to perform ADL's. OT Shelter Goals Shelter Goals Time Frame: Oct 07, 2018 Additional Goals: 2-Verbalize Understanding (met) 1=Demonstrate adherence to instructed precautions during ADL tasks. 2=Patient will verbalize/demonstrate understanding of assistive devices/modifications for ADL. 3=Patient will improve strength/tolerance for activity to enable patient to perform ADL's. OT Education/Plan Problem List/Assessment Assessment: Impaired Self-Care Skills Pt would benefit from OT for education in modified ADL techniques Discharge Recommendations Plan/Recommendations: Discharge/Goals Met Treatment Plan/Plan of Care Treatment,Training & Education: No (DC) Patient would benefit from OT for education, treatment and training to promote independence in ADL's, mobility, safety and/or upper extremity function for ADL's. Plan of Care: ADL Retraining Treatment Duration: Oct 07, 2018 Frequency: 1 time per week Estimated Hrs Per Day: .25 hour per day Agreement: Yes Rehab Potential: Good Time/GCodes Start Time: 15:54 Stop Time: 16:15 Total Time Billed (hr/min): 21 Billed Treatment Time visit, eval low intensity 10 minutes, ADL 11 minutes EUFEMIA GASTELUM OT Oct 07, 2018 16:23
[2018-10-07 19:32] VITALS: BP 125/81
[2018-10-08] VITALS (13 sets, daily range): BP systolic 83–158; BP diastolic 61–87
[2018-10-08] MEDS: oxyCODONE/APAP 5/325MG (PERCOCET 5) TABLET PO PRN ×2 (00:13→11:37)
[2018-10-08] MEDS: DILTIAZEM 60 MG (CARDIZEM) TAB PO SCH ×3 (00:14→09:44)
[2018-10-08] MEDS: NS IV 1000 ML 1,000 ML IV SCH (03:11)
[2018-10-08 05:19] LABS: BASOPHILS % (AUTO) 0 % (0-10); EOSINOPHILS % (AUTO) 0 % (0-10); HEMATOCRIT 37 % (40-54); HEMOGLOBIN 12.1 G/DL (13.3-17.7); LYMPHOCYTES # (AUTO) 1.8 X 10^3 (1.0-4.0); LYMPHOCYTES % (AUTO) 17 % (12-44); MEAN CORPUSCULAR HEMOGLOBIN 30 PG (25-34); MEAN CORPUSCULAR HGB CONC 33 G/DL (32-36); MEAN CORPUSCULAR VOLUME 90 FL (80-99); MEAN PLATELET VOLUME 9.7 FL (7.4-10.4); MONOCYTES # (AUTO) 1.1 X 10^3 (0.0-1.0); MONOCYTES % (AUTO) 10 % (0-12); NEUTROPHILS # (AUTO) 7.8 X 10^3 (1.8-7.8); NEUTROPHILS % (AUTO) 73 % (42-75); PLATELET COUNT 236 10^3/uL (130-400); RED CELL DISTRIBUTION WIDTH 15.1 % (10.0-14.5); WHITE BLOOD COUNT 10.7 10^3/uL (4.3-11.0)
[2018-10-08 05:30] LABS: PROTHROMBIN TIME PATIENT 13.2 SEC (12.2-14.7)
[2018-10-08] MEDS: MULTIVIT W/MINERALS TAB (THERAGRAN M) PO SCH (05:31)
[2018-10-08 05:37] LABS: BUN/CREATININE RATIO 15; CALCIUM 8.3 MG/DL (8.5-10.1); CARBON DIOXIDE 24 MMOL/L (21-32); CHLORIDE 106 MMOL/L (98-107); CREATININE SERUM 0.62 MG/DL (0.60-1.30); GFR ESTIMATED > 60; GLUCOSE 99 MG/DL (70-105); MAGNESIUM 2.1 MG/DL (1.8-2.4); PHOSPHORUS 2.2 MG/DL (2.3-4.7); POTASSIUM 4.2 MMOL/L (3.6-5.0); SODIUM 137 MMOL/L (135-145)
--- NOTE | 2018-10-08 06:21 | Progress Note-Standard ---
Standard Progress Note Progress Notes/Assess & Plan Date Seen by a Provider: Oct 08, 2018 Time Seen by a Provider: 06:20 Progress/Assessment & Plan post op check no complaints denies paresthesias radiographs--HW well positioned without fracture LLE--intact DF and PF of toes and ankle. iNtact sensation throughout. 2 plus DP pulse with brisk cap refill s/p LTKA mobilize as able Final Diagnosis no complaints Vital Signs Date Time Temp Pulse Resp B/P (MAP) Pulse Ox O2 Delivery O2 Flow Rate FiO2 10/08/18 04:47 96.9 60 20 95 Room Air 10/08/18 00:00 97.6 57 20 117/76 (90) 96 Room Air 10/07/18 20:28 Room Air 10/07/18 19:32 98.0 63 22 125/81 (96) 98 Room Air 10/07/18 19:00 116 10/07/18 18:40 96.7 10/07/18 18:07 96.7 10/07/18 18:00 18 10/07/18 15:34 96.7 65 20 131/63 (85) 96 Room Air 10/07/18 14:48 97 Room Air 10/07/18 12:42 74 10/07/18 12:00 97.1 88 18 123/56 (78) 95 Room Air 10/07/18 08:00 97.2 98 18 139/79 (99) 91 Room Air 10/07/18 08:00 Room Air 10/07/18 07:00 110 I & O 10/08/18 07:00 Intake Total 2250 ml Output Total 2000 ml Balance 250 ml Laboratory Tests Test 10/07/18 07:35 10/08/18 05:12 Range/Units White Blood Count 18.0 H 10.7 4.3-11.0 10^3/uL Red Blood Count 4.29 L 4.04 L 4.35-5.85 10^6/uL Hemoglobin 12.7 L 12.1 L 13.3-17.7 G/DL Hematocrit 38 L 37 L 40-54 % Mean Corpuscular Volume 89 90 80-99 FL Mean Corpuscular Hemoglobin 30 30 25-34 PG Mean Corpuscular Hemoglobin Concent 33 33 32-36 G/DL Red Cell Distribution Width 15.2 H 15.1 H 10.0-14.5 % Platelet Count 252 236 130-400 10^3/uL Mean Platelet Volume 9.6 9.7 7.4-10.4 FL Neutrophils (%) (Auto) 89 H 73 42-75 % Lymphocytes (%) (Auto) 5 L 17 12-44 % Monocytes (%) (Auto) 7 10 0-12 % Eosinophils (%) (Auto) 0 0 0-10 % Basophils (%) (Auto) 0 0 0-10 % Neutrophils # (Auto) 15.9 H 7.8 1.8-7.8 X 10^3 Lymphocytes # (Auto) 0.8 L 1.8 1.0-4.0 X 10^3 Monocytes # (Auto) 1.2 H 1.1 H 0.0-1.0 X 10^3 Eosinophils # (Auto) 0.0 0.0 0.0-0.3 10^3/uL Basophils # (Auto) 0.0 0.0 0.0-0.1 10^3/uL Neutrophils % (Manual) 86 % Lymphocytes % (Manual) 3 % Monocytes % (Manual) 10 % Eosinophils % (Manual) 0 % Basophils % (Manual) 0 % Band Neutrophils 1 % Anisocytosis SLIGHT Sodium Level 136 137 135-145 MMOL/L Potassium Level 4.3 4.2 3.6-5.0 MMOL/L Chloride Level 107 106 98-107 MMOL/L Carbon Dioxide Level 20 L 24 21-32 MMOL/L Anion Gap 9 7 5-14 MMOL/L Blood Urea Nitrogen 7 9 7-18 MG/DL Creatinine 0.67 0.62 0.60-1.30 MG/DL Estimat Glomerular Filtration Rate > 60 > 60 BUN/Creatinine Ratio 10 15 Glucose Level 144 H 99 70-105 MG/DL Calcium Level 8.7 8.3 L 8.5-10.1 MG/DL Corrected Calcium 9.0 8.5-10.1 MG/DL Phosphorus Level 2.1 L 2.2 L 2.3-4.7 MG/DL Magnesium Level 2.0 2.1 1.8-2.4 MG/DL Total Bilirubin 0.3 0.1-1.0 MG/DL Aspartate Amino Transf (AST/SGOT) 11 5-34 U/L Alanine Aminotransferase (ALT/SGPT) 16 0-55 U/L Alkaline Phosphatase 53 40-136 U/L Total Protein 6.4 6.4-8.2 GM/DL Albumin 3.6 3.2-4.5 GM/DL Triglycerides Level 83 <150 MG/DL Cholesterol Level 188 < 200 MG/DL LDL Cholesterol Direct 141 H 1-129 MG/DL VLDL Cholesterol 17 5-40 MG/DL HDL Cholesterol 39 L 40-60 MG/DL Prothrombin Time 13.2 12.2-14.7 SEC INR Comment 1.0 0.8-1.4 LLE--incision clean and dry. No calf tenderenss.SLR with assistance s/p ELANA doing well DC home when ok with DAVID Vazquez MD Oct 08, 2018 06:21
[2018-10-08] MEDS ORDERED: morphine INJ 4 MG/ML 1 ML (VIAL/SYRINGE) IVP PRN (06:30)
--- NOTE | 2018-10-08 06:43 | NUR ---
MORPHINE CADD PUMP DC'D 50ML OF MORPHINE WASTED, WITNESSED WITH TERESA YAO
--- NOTE | 2018-10-08 07:35 | Cardiology Progress Note ---
Subjective Date Seen by Provider: Oct 08, 2018 Time Seen by Provider: 07:35 Subjective/Events-last exam patient is laying down in bed, no new complaint, denied any chest pain. Review of Systems General: No Chills, No Night Sweats, No Fatigue, No Malaise, No Appetite, No Other HEENT: No Head Aches, No Visual Changes, No Eye Pain, No Ear Pain, No Dysphasia, No Sinus Congestion, No Post Nasal Drip, No Sore Throat, No Other Pulmonary: No Dyspnea, No Cough, No Pleuritic Chest Pain, No Other Cardiovascular: No: Chest Pain, Palpitations, Orthopnea, Paroxysmal Noc. Dyspnea, Edema, Lt Headedness, Other Objective-Cardiology Exam Last Set of Vital Signs Vital Signs 10/06/18 10/08/18 10/08/18 10/08/18 10/08/18 10:35 00:00 04:47 06:30 07:00 Temp 96.9 Pulse 108 Resp 18 B/P (MAP) 117/76 (90) Pulse Ox 95 O2 Delivery Room Air O2 Flow Rate 3 Capillary Refill : Less Than 3 Seconds I&O Intake and Output 10/08/18 00:00 Intake Total 1820 ml Output Total 3100 ml Balance -1280 ml Intake Oral 1820 ml Output Urine Total 3100 ml General: Alert, Oriented X3, Cooperative, No Acute Distress HEENT: Atraumatic, PERRLA Neck: Supple, No JVD Lungs: Clear to Auscultation, Normal Air Movement Heart: Normal S1, Normal S2, No Murmurs, Other (atrial flutter with rapid ventricular response) Abdomen: Normal Bowel Sounds, Soft, No Tenderness, No Hepatosplenomegaly, No Masses Extremities: No Clubbing, No Cyanosis, No Edema, Normal Pulses, No Tenderness/Swelling Skin: No Rashes, No Breakdown, No Significant Lesion Neuro: Normal Gait, Normal Speech, Strength at 5/5 X4 Ext, Normal Tone, Sensation Intact Psych/Mental Status: Mental Status NL, Mood NL Results Lab Laboratory Tests 10/08/18 05:12 A/P-Cardiology Admission Diagnosis Atrial flutter Tachycardia Hypertension Arthritis Assessment/Plan Atrial flutter with rapid ventricular response unknown duration, planning to proceed with CLEVELAND and electrical cardioversion today. Hypertension, good control at this time. Continue to monitor Status post knee replacement surgery done today on October 06, 2018. By Dr. Johnson. Continue to monitor Arthritis, scheduled for knee replacement surgery with Dr. Johnson Questionable hyperlipidemia I will evaluate lipid profile, CMP and TSH Obesity, BMI 35, we discussed weight loss and the risk of sleep apnea. Tobaccoism, educated on smoking cessation Clinical Quality Measures DVT/VTE Risk/Contraindication: Risk Factor Score Per Nursin RFS Level Per Nursing on Admit: 4+=Very High MONIK BRITO MD Oct 08, 2018 07:35
[2018-10-08] MEDS ORDERED: fentaNYL INJECTION 100 MCG/2 ML AMP ONE ×2 (07:47→08:12)
[2018-10-08] MEDS ORDERED: MIDAZOLAM 5 MG/5 ML (VERSED) VIAL ONE ×2 (07:47→08:12)
[2018-10-08] MEDS ORDERED: proPOfol 200 MG/20 ML (DIPRIVAN) VIAL IV ONE (07:47)
[2018-10-08] MEDS ORDERED: NS IV 1000 ML 1,000 ML ONE (07:47)
[2018-10-08] MEDS ORDERED: LIDOCAINE 2% VISCOUS 15 ML UDC ONE (07:48)
--- NOTE | 2018-10-08 08:00 | NUR ---
TO CLEVELAND PER BED, VERBALIZED UNDERSTANDING
[2018-10-08] MEDS ORDERED: NS IV 1000 ML 1,000 ML IV ONE (08:34)
[2018-10-08] MEDS ORDERED: APIX5TAB PO (08:40)
[2018-10-08] MEDS ORDERED: DILT240C86 PO (08:40)
[2018-10-08] MEDS ORDERED: METO-333 PO (08:40)
[2018-10-08] MEDS ORDERED: MIDAZOLAM 5 MG/5 ML (VERSED) VIAL IV ONE (08:45)
[2018-10-08] MEDS ORDERED: fentaNYL INJECTION 100 MCG/2 ML AMP IV ONE (08:45)
[2018-10-08] MEDS ORDERED: LIDOCAINE 2% VISCOUS 15 ML UDC PO ONE (08:45)
--- NOTE | 2018-10-08 09:05 | Cardiology Discharge Summary ---
Diagnosis/Chief Complaint Date of Admission Oct 05, 2018 at 8:05 am Date of Discharge Admission Diagnosis Atrial flutter Tachycardia Hypertension Arthritis Discharge Diagnosis left total knee arthroplasty Acute atrial flutter Tachycardia Hypertension Chief Complaint/HPI Chief Complaint/HPI Mr Quijano is 58 years old gentleman with no significant past history, active smoker, was scheduled for knee replacement surgery and the preoperative workup was noted to be in atrial flutter with rapid ventricular response and hypertension, denied any chest pain or shortness of breath. No palpitation, syncope or near syncopal episodes. No claudications. Had a long discussion with the patient and with Dr. Johnson and agreed on admitting the patient to the hospital and starting IV thousand, blockers and heparin drip in preparation to control his rate then planning for surgery. Patient underwent left knee arthroplasty, this morning he had a CLEVELAND which showed left atrial thrombus. No cardiac vision was done. We will continue on medical therapy and follow-up as an outpatient Discharge Summary Hospital Course Was the Problem List Reviewed?: Yes Hospital Course Atrial flutter with rapid ventricular response unknown duration, CLEVELAND showed left atrial appendage thrombus. I will start rate controlling medication, continue on Eliquis, metoprolol and Cardizem and follow up as an outpatient. Hypertension, good control at this time. Continue to monitor Status post knee replacement surgery done today on October 06, 2018. By Dr. Johnson. Continue to monitor Arthritis, scheduled for knee replacement surgery with Dr. Johnson Questionable hyperlipidemia I will evaluate lipid profile, CMP and TSH Obesity, BMI 35, we discussed weight loss and the risk of sleep apnea. Tobaccoism, educated on smoking cessation Labs Laboratory Tests 10/05/18 18:30: Activated Partial Thromboplast Time 85H 10/06/18 00:35: Activated Partial Thromboplast Time > 200*H 10/06/18 04:45: Red Cell Distribution Width 15.0H, Eosinophils # (Auto) 0.4H, Chloride Level 108H 10/06/18 07:07: 10/07/18 07:35: White Blood Count 18.0H, Red Blood Count 4.29L, Hemoglobin 12.7L, Hematocrit 38L , Red Cell Distribution Width 15.2H, Neutrophils (%) (Auto) 89H, Lymphocytes (%) (Auto) 5L, Neutrophils # (Auto) 15.9H, Lymphocytes # (Auto) 0.8L, Monocytes # (Auto) 1.2H, Carbon Dioxide Level 20L, Glucose Level 144H, Phosphorus Level 2.1L , LDL Cholesterol Direct 141H, HDL Cholesterol 39L 10/08/18 05:12: Red Blood Count 4.04L, Hemoglobin 12.1L, Hematocrit 37L, Red Cell Distribution Width 15.1H, Monocytes # (Auto) 1.1H, Phosphorus Level 2.2L, Calcium Level 8.3L Procedures None. Discharge Physical Examination Allergies: Coded Allergies: No Known Drug Allergies (Unverified , 07/27/16) Vitals & I&Os Vital Signs Date Time Temp Pulse Resp B/P (MAP) Pulse Ox O2 Delivery O2 Flow Rate FiO2 10/08/18 08:53 125 20 145/87 (106) 95 Room Air 10/08/18 08:32 97.7 0.00 General Appearance: Alert, Oriented X3, Cooperative, No Acute Distress HEENT: Atraumatic, PERRLA Respiratory: Clear to Auscultation, Normal Air Movement Cardiovascular: Normal S1, Normal S2, No Murmurs Abdominal: Normal Bowel Sounds, Soft, No Tenderness, No Hepatosplenomegaly, No Masses, Other (irregular) Extremities: No Clubbing, No Cyanosis, No Edema, Normal Pulses, Other (knee replacement) Skin: No Rashes, No Breakdown, No Significant Lesion Neuro: Normal Speech, Strength at 5/5 X4 Ext, Normal Tone, Sensation Intact, Cranial Nerves 3-12 NL, Reflexes 2+ Psych/Mental Status: Mental Status NL, Mood NL Discharge Home Medications Reviewed and agree with Discharge Medication list on patient's Discharge Instruction sheet Instructions to Patient/Family Please see electronic discharge instructions given to patient. Clinical Quality Measures Admission Status Admission Status: Inpatient Order (span 2 midnights) Reason for Inpatient Admission: Atrial flutter, tachycardia Left knee arthroplasty DVT/VTE Risk/Contraindication: Risk Factor Score Per Nursin RFS Level Per Nursing on Admit: 4+=Very High MONIK BRITO MD Oct 08, 2018 9:05 am
[2018-10-08] MEDS: meTOprolol TARTRATE 25 MG (LOPRESSOR) TABLET PO SCH (09:44)
[2018-10-08] MEDS: SENNA W/DOCUSATE (SENOKOT S) TABLET PO SCH (09:44)
[2018-10-08] MEDS: APIXABAN 5 MG (ELIQUIS) TABLET PO SCH (09:44)
--- NOTE | 2018-10-08 10:20 | NUR ---
Important Message from Medicare presented, reviewed, signed and placed in patient chart. Patient voiced no intention to appeal and deny any needs or further questions at this time.
--- NOTE | 2018-10-08 10:52 | NUR ---
WALKED IN [facility] WITH PT WITH CRUTCHES, PADMINI WELL
--- NOTE | 2018-10-08 10:54 | Physical Therapy Daily Note ---
PT Daily Note-Current Subjective Patient agrees to PT and report he will dismiss to home on this date. Pain Numeric Pain Scale: 4 Location: Left Location Body Site: Knee Pain Description: Acute Mental Status Patient Orientation: Normal For Age Transfers Therapy Code Descriptions/Definitions Functional [place]asper Measure: 0=Not Assessed/NA 4=Minimal Assistance 1=Total Assistance 5=Supervision or Setup 2=Maximal Assistance 6=Modified Jasper 3=Moderate Assistance 7=Complete Jasper Therapy Quality Codes: 6 Independent with activity with or without an assistive device 5 Patient requires set up or clean up by helper. Patient completes activity by themselves 4 Supervision or touching assist (CGA). [place] provide cues , steadying assist 3 The helper provides less than half the effort to complete the activity 2 The helper provides more than half the effort to complete the activity 1 Dependent. The helper does all the effort to complete an activity 7 Patient refused to complete or attempt activity 9 The patient did not perform the activity before the current illness or injury 88 Not attempted due to Medical conditions or safety concerns Transfers (B, C, W/C) (FIM): 6 Scootin Sit to/from Stand: 6 Gait Training Gait (FIM): 6 Distance (FIM): 3=150 ft Distance: 300' x 2 Gait Level of Assist: 6 Gait Assistive Device: Crutches functional gait sequence Stair Training Stair Training: Handrails/: No handrail (utilizes crutches) Stairs (FIM): 2 #of Steps: 4 Stairs: Pattern: Step to Level of Assist: 5 Assessment Patient tolerated treatment and is safe to return to home with use of crutches or FWW. Goals addressed and attained. PT Short Term Goals Short Term Goals Time Frame: Oct 13, 2018 Transfers (B,C,W/C) (FIM): 5 Gait (FIM): 5 Gait Distance Comment: 200' Gait Level of Assist: 5 Gait Assistive Device: FWW PT Plan Treatment/Plan Treatment Plan: Discontinue PT, goals met Treatment Plan: Bed Mobility, Education, Functional Activity Flora, Functional Strength, Gait, Safety, Therapeutic Exercise, Transfers Treatment Duration: Oct 13, 2018 Frequency: 11 times per week Estimated Hrs Per Day: .25 hour per day (15-30') Patient and/or Family Agrees t: Yes Time/GCodes Time In: 1040 Time Out: 1049 Total Billed Treatment Time: 9 Total Billed Treatment 1 visit FA 9 min VALERIE FERGUSON PT Oct 08, 2018 10:54
--- NOTE | 2018-10-08 11:29 | Progress Note-Hospitalist ---
Subjective HPI/CC On Admission Date Seen by Provider: Oct 08, 2018 Time Seen by Provider: 10:00 CC: Medical management following left total knee replacement HPI: This is a 58yoWM clinic patient of [facility] who had an uncomplicated left total knee replacement following a new onset atrial flutter in prep for cardioversion tomorrow by Dr To. Patient reports his pain is improved. Smoking cessation was discussed. Urination is normal since surgery. Checked meds and labs and reviewed Dr To note. Subjective/Events-last exam Patient doing very well Transesophageal echocardiograms morning revealed atrial thrombosis so patient was placed on anticoagulation will of close follow-up with Dr. To Ready to go from the knee standpoint Urinating well Bowels not moving yet and some meds were given Review of Systems Musculoskeletal: leg pain Objective Exam Vital Signs Vital Signs Date Time Temp Pulse Resp B/P (MAP) Pulse Ox O2 Delivery O2 Flow Rate FiO2 10/08/18 11:40 60 22 156/74 98 Room Air 10/08/18 11:07 97.4 0.00 Capillary Refill : Less Than 3 Seconds General Appearance: No Apparent Distress, WD/WN, Chronically ill HEENT: PERRL/EOMI, Normal ENT Inspection, Pharynx Normal Neck: Full Range of Motion, Normal Inspection, Non Tender, Supple, Carotid Bruit Respiratory: Chest Non Tender, Lungs Clear, Normal Breath Sounds, No Accessory Muscle Use, No Respiratory Distress Cardiovascular: Regular Rate, Rhythm, No Edema, No Gallop, No JVD, No Murmur, Normal Peripheral Pulses Gastrointestinal: Normal Bowel Sounds, No Organomegaly, No Pulsatile Mass, Non Tender, Soft Back: Normal Inspection, No CVA Tenderness, No Vertebral Tenderness Extremity: Normal Capillary Refill, Normal Inspection, Normal Range of Motion, Non Tender, No Calf Tenderness, No Pedal Edema Neurologic/Psychiatric: Alert, Oriented x3, No Motor/Sensory Deficits, Normal Mood/Affect Skin: Normal Color, Warm/Dry Lymphatic: No Adenopathy Results/Procedures Lab Patient resulted labs reviewed. Assessment/Plan Assessment and Plan Assess & Plan/Chief Complaint Assessment: New onset atrial flutter Atrial thrombosis noted on CLEVELAND preventing cardioversion s/p left total knee replacement POD # 2 HTN Smoker Leukocytosis Plan: OAC Monitor labs Smoking cessation Diagnosis/Problems Diagnosis/Problems (1) Atrial flutter Status: Acute (2) Smoker Status: Chronic (3) Status post left knee replacement Status: Acute (4) Leukocytosis Status: Acute Qualifiers: Leukocytosis type: leukemoid reaction Qualified Codes: D72.823 - Leukemoid reaction (5) Status post transesophageal echocardiogram (C[place]AND) Status: Acute (6) Atrial thrombus Status: Acute Clinical Quality Measures DVT/VTE Risk/Contraindication: Risk Factor Score Per Nursin RFS Level Per Nursing on Admit: 4+=Very High PATTIE NESBITT DO Oct 08, 2018 11:29
[2018-10-08] MEDS ORDERED: POLYETHYLENE GLYCOL 17 GM (MIRALAX) PACK PO SCH (11:30)
[2018-10-08] MEDS ORDERED: LACTULOSE SYRUP 10GM/15ML (ENULOSE) 30ML UDC PO SCH (11:30)
[2018-10-08] MEDS ORDERED: SENNA W/DOCUSATE (SENOKOT S) TABLET PO SCH (11:30)
--- NOTE | 2018-10-08 11:30 | NUR ---
PICC LINE REMOVED, SITE WITHOUT REDNESS OR SWELLING, DRESSING DRY AND INTACT TO LEFT KNEE, BROTHER AT BEDSIDE, INSTRUCTED TO PATENT PROSECUTION [employer] AT [employer], INSTRUCTED ON DRESSING CHANGES AND OUTPATIENT PT, TO WEAR EMILY HOSE AND CONTINUE TO USE POLAR ICE PACK AT HOME, PRESCRIPTION GIVEN TO PATIENT, VERBALIZED UNDERSTANDING OF DISCHARGE INSTRUCTIONS.
--- NOTE | 2018-10-08 11:45 | NUR ---
DAVION CUBA demonstrates understanding of discharge instructions and accurately returns instructions upon questioning. Copy of Post-Discharge Instructions and Medication Discharge Instructions given to PATIENT. DAVION CUBA is able to manage continuing needs after discharge. Patients belongings returned to PATIENT. Skin dry and intact; no breakdown noted. Patient discharged from [facility] on 10/08/18 at 1145. DAVION CUBA left floor via W/C, accompanied by STAFF AND BROTHER.
--- NOTE | 2018-10-08 13:53 | NUR ---
CM/SS patient is ready for discharge this day. Patient and his will tack picker his walker from [facility] is aware. Patient is scheduled for the [facility].
--- NOTE | 2018-10-08 22:18 | DISCHARGE SUMMARY ---
DATE OF SERVICE: ORTHOPEDIC DISCHARGE SUMMARY ORTHOPEDIC DIAGNOSIS: Left knee primary osteoarthritis. SUMMARY: The patient is a 58-year-old gentleman who underwent a left total knee arthroplasty on 10/06/2018 without complications. Postoperatively, he was progressing well. He had no calf tenderness. Negative Homans sign. He cleared physical therapy. His wound was clean and dry. He is tolerating his diet well and tolerating pain with oral pain medication. CONDITION AT DISCHARGE: Good. DISCHARGE DIET: Regular. FOLLOWUP: Followup is in three weeks. Outpatient physical therapy has been arranged. ACTIVITIES: Weightbearing as tolerated with walker left lower extremity. DISCHARGE MEDICATIONS: Home medications as well as Percocet as needed for pain. Job ID: [id number] DocumentID: [id number] Dictated Date: 10/08/2018 15:30:50 [employer] Machine Operator Date: 10/08/2018 22:17:39 Dictated By: DAVID ALVES MD
== END 2018-10-08 11:45 | disposition home or self-care (01) | DRG 983 ==
LOC: ICU 08:05 → 4TH 10-06 14:39
PROVIDERS: ADMIT Internal Medicine Cardiovascular Disease; ATTEND Internal Medicine Cardiovascular Disease
PROC: 0SRD0J9 Replacement of Left Knee Joint with Synthetic Substitute, Cemented, Open Approach (ICD-10-PCS; principal; 2018-10-06 07:42)
DX: I48.92 Unspecified atrial flutter (principal); M17.0 Bilateral primary osteoarthritis of knee; I51.3 Intracardiac thrombosis, not elsewhere classified; R00.0 Tachycardia, unspecified; I10 Essential (primary) hypertension; E78.5 Hyperlipidemia, unspecified; F17.210 Nicotine dependence, cigarettes, uncomplicated; E66.9 Obesity, unspecified; Z68.35 Body mass index [BMI] 35.0-35.9, adult; H91.90 Unspecified hearing loss, unspecified ear; B19.20 Unspecified viral hepatitis C without hepatic coma
CPT/HCPCS: 36415; 71045; 71046; 73560; 76937; 80048; 80053; 80061; 83735; 84100; 84443; 85007; 85025; 85027; 85610; 85730; 87081; 93005; 93306; 93312; 93320; 93325; 94664; 94760

== ENCOUNTER 2018-10-10 13:26 | Observation (INO) | payer MEDICARE ==
[~2018-10-10] VITALS: Ht 177.8 cm; Wt 112.0 kg
[~2018-10-10 13:26] MED LIST changes: +APIX5TAB PO; +DILT120C47 PO; +DILT120C53 PO; +DILT240C86 PO; +METO-333 PO; +OXYC1TAB87 PO
--- OUTSIDE RECORDS SUMMARY | 2018-10-10 13:31 | XMS REPORT ---
Author Author KO RODRIGUEZ Organization [facility] Address [address] [place] [address] Care Team Providers Care Electrotyper Name Role Phone KO RODRIGUEZ Unavailable PROBLEMS Type Condition ICD9-CM Code [id number] Code Onset Dates Condition Status SNOMED Code Problem Gastroesophageal reflux disease with esophagitis K21.0 Active 674331713 Problem Restless legs syndrome G25.81 Active 76629137 Problem History of substance abuse Z87.898 Active 084101402 Problem Cannabis abuse F12.10 Active 70265961 Problem Pain in right knee M25.561 Active 18151481 Problem Sebaceous cyst L72.3 Active 389630414 Problem Chronic hepatitis C without hepatic coma B18.2 Active 407867661 Problem Pain in left knee M25.562 Active 968398952382332 Problem Other chronic pain G89.29 Active 70270146 ALLERGIES No Known Allergies ENCOUNTERS Encounter Location Date Diagnosis [facility] [address] [address] Nov, Chronic hepatitis C without hepatic coma B18.2 and Cannabis abuse F12.10 [facility] [address] [id number] [place] [id number] Nov, Chronic hepatitis C without hepatic coma B18.2 [facility] [id number] [place] [phone] Nov, Chronic hepatitis C without hepatic coma B18.2 [facility] [address] [place] [address] Nov, [facility] [id number] [place] [phone] Nov, [facility] [id number] [place] [phone] Oct, [facility] [id number] [place] [id number] 22 Oct, 2017 Chronic hepatitis C without hepatic coma B18.2 ; Pain in right knee M25.561 ; Pain in left knee M25.562 ; Other chronic pain G89.29 ; Encounter for screening for malignant neoplasm of colon Z12.11 ; Encounter for screening for malignant neoplasm of rectum Z12.12 ; Family history of colon cancer Z80.0 and Family history of prostate cancer Z80.42 [place] [address] [address] 20 Oct, 2017 Pain in right knee M25.561 ; Pain in left knee M25.562 ; Other chronic pain G89.29 ; Encounter for screening for malignant neoplasm of colon Z12.11 ; Encounter for screening for malignant neoplasm of rectum Z12.12 ; Family history of colon cancer Z80.0 and Family history of prostate cancer Z80.42 [place] [address] [address] 07 Oct, 2017 Other chronic pain G89.29 ; Pain in left knee M25.562 and Pain in right knee M25.561 [facility] [address] [address] 09 Mar, 2017 Drainage from penis R36.9 [place] [address] [address] Aug, Visit for suture removal Z48.02 ; Gastroesophageal reflux disease with esophagitis K21.0 and Restless legs syndrome G25.81 [place] [id number] [place] [phone] Aug, Sebaceous cyst L72.3 [place] [address] [address] 12 Aug, 2016 Gastroesophageal reflux disease with esophagitis K21.0 ; History of substance abuse Z87.898 ; Sebaceous cyst L72.3 and Restless legs syndrome G25.81 [place] [address] [address] Aug, [facility] [address] [facility] [id number] [address] Jul, Bloody stool K92.1 and Gastroesophageal reflux disease with esophagitis K21.0 IMMUNIZATIONS No Known Immunizations SOCIAL HISTORY Never Assessed REASON FOR VISIT knee f/u, PT [facility] CARE VITAL SIGNS Height 69.5 in 2017-10-21 Weight 235.7 lbs 2017-10-21 Temperature 98.5 degrees Fahrenheit 2017-10-21 Heart Rate 78 bpm 2017-10-21 Respiratory Rate 20 2017-10-21 BMI 34.3 kg/m2 2017-10-21 Blood pressure systolic 132 mmHg 2017-10-21 Blood pressure diastolic 96 mmHg 2017-10-21 MEDICATIONS Medication Instructions Dosage Frequency Start Date End Date Duration Status Neurontin 300 MG Orally Three times a day 1 capsule 8h Oct, Active Chantix 1 MG Orally Twice a day 1 tablet 12h Oct, 30 day(s) Active Diclofenac Sodium 75 MG Orally Twice a day 1 tablet with food or milk 12h Oct, 30 day(s) Active RESULTS Name Result Date Reference Range COLOGUARD (OUTSIDE ORDER) 2017-11-02 Date Performed Results PROCEDURES Procedure Date Ordered Result Body Site [facility] VISIT ESTABLISHED PATIENT October 21, 2017 INSTRUCTIONS MEDICATIONS ADMINISTERED No Known Medications MEDICAL (GENERAL) HISTORY Type Description Date Medical History Arthritis Medical History meniscal tear Medical History HEP C ( no treatment) Surgical History tonsillectomy Surgical History cholecystectomy Surgical History hernia repair Surgical History Tendon repair in hand-bilateral Hospitalization History Surgery only
--- OUTSIDE RECORDS SUMMARY | 2018-10-10 13:31 | XMS REPORT ---
Author Author KO RODRIGUEZ Organization [facility] Address [address] [place] [address] Care Team Providers Care Brick Chimney Supervisor Name Role Phone KO RODRIGUEZ Unavailable PROBLEMS Type Condition ICD9-CM Code TPO96-KI Code Onset Dates Condition Status SNOMED Code Problem Gastroesophageal reflux disease with esophagitis K21.0 Active 791912795 Problem Restless legs syndrome G25.81 Active 05206445 Problem History of substance abuse Z87.898 Active 824620682 Problem Cannabis abuse F12.10 Active 28562636 Problem Pain in right knee M25.561 Active 14872239 Problem Sebaceous cyst L72.3 Active 197508223 Problem Chronic hepatitis C without hepatic coma B18.2 Active 953575048 Problem Pain in left knee M25.562 Active 881736378539597 Problem Other chronic pain G89.29 Active 86961808 ALLERGIES No Known Allergies ENCOUNTERS Encounter Location Date Diagnosis [facility] [address] [address] Nov, Chronic hepatitis C without hepatic coma B18.2 and Cannabis abuse F12.10 [facility] [address] [place] [id number] [place] [address] Nov, Chronic hepatitis C without hepatic coma B18.2 [facility] [id number] [place] [address] Nov, Chronic hepatitis C without hepatic coma B18.2 [facility] [address] [place] [address] Nov, [facility] [id number] [place] [address] Nov, [facility] [id number] [place] [address] Oct, [facility] [id number] [place] [address] 22 Oct, 2017 Chronic hepatitis C without hepatic coma B18.2 ; Pain in right knee M25.561 ; Pain in left knee M25.562 ; Other chronic pain G89.29 ; Encounter for screening for malignant neoplasm of colon Z12.11 ; Encounter for screening for malignant neoplasm of rectum Z12.12 ; Family history of colon cancer Z80.0 and Family history of prostate cancer Z80.42 [place] [address] [address] 20 Oct, 2017 Pain in right knee M25.561 ; Pain in left knee M25.562 ; Other chronic pain G89.29 ; Encounter for screening for malignant neoplasm of colon Z12.11 ; Encounter for screening for malignant neoplasm of rectum Z12.12 ; Family history of colon cancer Z80.0 and Family history of prostate cancer Z80.42 [place] [address] [address] 07 Oct, 2017 Other chronic pain G89.29 ; Pain in left knee M25.562 and Pain in right knee M25.561 [facility] WALK IN [facility] [address] [address] 09 Mar, 2017 Drainage from penis R36.9 [place] [address] [address] Aug, Visit for suture removal Z48.02 ; Gastroesophageal reflux disease with esophagitis K21.0 and Restless legs syndrome G25.81 [place] [id number] [place] [address] Aug, Sebaceous cyst L72.3 [place] [address] [address] 12 Aug, 2016 Gastroesophageal reflux disease with esophagitis K21.0 ; History of substance abuse Z87.898 ; Sebaceous cyst L72.3 and Restless legs syndrome G25.81 [place] [address] [address] Aug, [facility] [address] [facility] [id number] [place] [address] Jul, Bloody stool K92.1 and Gastroesophageal reflux disease with esophagitis K21.0 IMMUNIZATIONS No Known Immunizations SOCIAL HISTORY Never Assessed REASON FOR VISIT Establish [facility] -Ryley PINTO , PT reports he wants a referal for his knees -Paramjit son MILLIE PLAN OF CARE VITAL SIGNS Height 69.5 in 2017-10-08 Weight 237.8 lbs 2017-10-08 Temperature 99.2 degrees Fahrenheit 2017-10-08 Heart Rate 89 bpm 2017-10-08 Respiratory Rate 20 2017-10-08 Oximetry on room air:98 % 2017-10-08 BMI 34.61 kg/m2 2017-10-08 Blood pressure systolic 145 mmHg 2017-10-08 Blood pressure diastolic 90 mmHg 2017-10-08 MEDICATIONS Medication Instructions Dosage Frequency Start Date End Date Duration Status Neurontin 300 MG Orally Three times a day 1 capsule 8h Oct, Active RESULTS Name Result Date Reference Range Xray : Knees, Bilateral (IN HOUSE) 2017-10-08 PROCEDURES Procedure Date Ordered Result Body Site X-RAY EXAM OF KNEES October 08, 2017 [facility] VISIT ESTABLISHED PATIENT October 08, 2017 INSTRUCTIONS MEDICATIONS ADMINISTERED No Known Medications MEDICAL (GENERAL) HISTORY Type Description Date Medical History Arthritis Medical History meniscal tear Medical History HEP C ( no treatment) Surgical History tonsillectomy Surgical History cholecystectomy Surgical History hernia repair Surgical History Tendon repair in hand-bilateral Hospitalization History Surgery only
--- OUTSIDE RECORDS SUMMARY | 2018-10-10 13:31 | XMS REPORT ---
Author Author SAVANA RAMIREZ [facility] Address [address] [place] [address] Care Team Providers Care Hide Spreader Name Role Phone SAAVNA RAMIREZ Unavailable PROBLEMS Type Condition ICD9-CM Code OSL69-HV Code Onset Dates Condition Status SNOMED Code Problem Gastroesophageal reflux disease with esophagitis K21.0 Active 528880508 Problem Restless legs syndrome G25.81 Active 33990478 Problem History of substance abuse Z87.898 Active 334256401 Problem Cannabis abuse F12.10 Active 72714375 Problem Pain in right knee M25.561 Active 22880993 Problem Sebaceous cyst L72.3 Active 957507914 Problem Chronic hepatitis C without hepatic coma B18.2 Active 337860985 Problem Pain in left knee M25.562 Active 173242728253307 Problem Other chronic pain G89.29 Active 76189166 ALLERGIES No Information ENCOUNTERS Encounter Location Date Diagnosis [facility] [address] [address] Nov, Chronic hepatitis C without hepatic coma B18.2 and Cannabis abuse F12.10 [facility] [address] [place] [id number] [place] [address] Nov, Chronic hepatitis C without hepatic coma B18.2 [facility] [address] [address] Nov, Chronic hepatitis C without hepatic coma B18.2 [facility] [address] [place] [address] Nov, [facility] [address] [address] Nov, [facility] [address] [address] Oct, [place] [address] [place] [id number] [place] [address] 22 Oct, 2017 Chronic hepatitis C without hepatic coma B18.2 ; Pain in right knee M25.561 ; Pain in left knee M25.562 ; Other chronic pain G89.29 ; Encounter for screening for malignant neoplasm of colon Z12.11 ; Encounter for screening for malignant neoplasm of rectum Z12.12 ; Family history of colon cancer Z80.0 and Family history of prostate cancer Z80.42 [place] [address] [address] 20 Oct, 2017 Pain in right knee M25.561 ; Pain in left knee M25.562 ; Other chronic pain G89.29 ; Encounter for screening for malignant neoplasm of colon Z12.11 ; Encounter for screening for malignant neoplasm of rectum Z12.12 ; Family history of colon cancer Z80.0 and Family history of prostate cancer Z80.42 [place] [address] [address] Oct, Other chronic pain G89.29 ; Pain in left knee M25.562 and Pain in right knee M25.[address] [facility] WALK IN [facility] [address] [address] Mar, Drainage from penis R36.9 [place] [address] [address] Aug, Visit for suture removal Z48.02 ; Gastroesophageal reflux disease with esophagitis K21.0 and Restless legs syndrome G25.81 [place] [address] [address] Aug, Sebaceous cyst L72.3 [place] [address] [address] Aug, Gastroesophageal reflux disease with esophagitis K21.0 ; History of substance abuse Z87.898 ; Sebaceous cyst L72.3 and Restless legs syndrome G25.81 [place] [address] [address] Aug, [facility] [address] [facility] [id number] [place] [address] Jul, Bloody stool K92.1 and Gastroesophageal reflux disease with esophagitis K21.0 IMMUNIZATIONS No Known Immunizations SOCIAL HISTORY Never Assessed REASON FOR VISIT Waiting for call back PLAN OF CARE VITAL SIGNS MEDICATIONS No Known Medications RESULTS No Results PROCEDURES No Known procedures INSTRUCTIONS MEDICATIONS ADMINISTERED No Known Medications MEDICAL (GENERAL) HISTORY Type Description Date Medical History Arthritis Medical History meniscal tear Medical History HEP C ( no treatment) Surgical History tonsillectomy Surgical History cholecystectomy Surgical History hernia repair Surgical History Tendon repair in hand-bilateral Hospitalization History Surgery only
--- OUTSIDE RECORDS SUMMARY | 2018-10-10 13:31 | XMS REPORT ---
Author Author KO RODRIGUEZ Organization [facility] Address [address] [place] [address] Care Team Providers Care Band Director Name Role Phone KO RODRIGUEZ Unavailable PROBLEMS Type Condition ICD9-CM Code AMF10-RE Code Onset Dates Condition Status SNOMED Code Problem Gastroesophageal reflux disease with esophagitis K21.0 Active 699969983 Problem Restless legs syndrome G25.81 Active 63236157 Problem History of substance abuse Z87.898 Active 364408304 Problem Cannabis abuse F12.10 Active 89425918 Problem Pain in right knee M25.561 Active 49791679 Problem Sebaceous cyst L72.3 Active 690348865 Problem Chronic hepatitis C without hepatic coma B18.2 Active 179186883 Problem Pain in left knee M25.562 Active 632410618732343 Problem Other chronic pain G89.29 Active 04492115 ALLERGIES No Information ENCOUNTERS Encounter Location Date Diagnosis [facility] [id number] [place] [address] Nov, Chronic hepatitis C without hepatic coma B18.2 and Cannabis abuse F12.10 [facility] [address] [place] [address] Nov, Chronic hepatitis C without hepatic coma B18.2 [facility] [address] [place] [address] Nov, Chronic hepatitis C without hepatic coma B18.2 [facility] [address] [place] [address] Nov, [facility] [address] [id number] [place] [address] Nov, [facility] [address] [place] [address] Oct, [facility] [address] [id number] [place] [address] 22 Oct, 2017 Chronic hepatitis C without hepatic coma B18.2 ; Pain in right knee M25.561 ; Pain in left knee M25.562 ; Other chronic pain G89.29 ; Encounter for screening for malignant neoplasm of colon Z12.11 ; Encounter for screening for malignant neoplasm of rectum Z12.12 ; Family history of colon cancer Z80.0 and Family history of prostate cancer Z80.42 [place] [address] [address] Oct, Pain in right knee M25.561 ; Pain in left knee M25.562 ; Other chronic pain G89.29 ; Encounter for screening for malignant neoplasm of colon Z12.11 ; Encounter for screening for malignant neoplasm of rectum Z12.12 ; Family history of colon cancer Z80.0 and Family history of prostate cancer Z80.[address] [address] 07 Oct, 2017 Other chronic pain G89.29 ; Pain in left knee M25.562 and Pain in right knee M25.561 [facility] [address] [address] Mar, Drainage from penis R36.[address] [address] Aug, Visit for suture removal Z48.02 ; Gastroesophageal reflux disease with esophagitis K21.0 and Restless legs syndrome G25.81 [place] [address] [id number] [place] [address] Aug, Sebaceous cyst L72.3 [place] [address] [address] Aug, Gastroesophageal reflux disease with esophagitis K21.0 ; History of substance abuse Z87.898 ; Sebaceous cyst L72.3 and Restless legs syndrome G25.81 [place] [address] [address] Aug, [facility] [address] [facility] [id number] [place] [address] Jul, Bloody stool K92.1 and Gastroesophageal reflux disease with esophagitis K21.0 IMMUNIZATIONS No Known Immunizations SOCIAL HISTORY Never Assessed REASON FOR VISIT Lab (walk-in) PLAN OF CARE VITAL SIGNS MEDICATIONS No Known Medications RESULTS No Results PROCEDURES Procedure Date Ordered Result Body Site LAB NOT BILLED BY [facility] October 23, 2017 HEP C RNA, QN PCR W/REFL TO GENOTYPE, LIPA(R) CPT 61968 October 23, 2017 INSTRUCTIONS MEDICATIONS ADMINISTERED No Known Medications MEDICAL (GENERAL) HISTORY Type Description Date Medical History Arthritis Medical History meniscal tear Medical History HEP C ( no treatment) Surgical History tonsillectomy Surgical History cholecystectomy Surgical History hernia repair Surgical History Tendon repair in hand-bilateral Hospitalization History Surgery only
--- OUTSIDE RECORDS SUMMARY | 2018-10-10 13:31 | XMS REPORT ---
Author Author KO RODRIGUEZ Organization [facility] Address [address] [place] [address] Care Team Providers Care Bobbin Winder Tender Name Role Phone KO RODRIGUEZ Unavailable PROBLEMS Type Condition ICD9-CM Code CRU60-UZ Code Onset Dates Condition Status SNOMED Code Problem Gastroesophageal reflux disease with esophagitis K21.0 Active 149757002 Problem Restless legs syndrome G25.81 Active 41566944 Problem History of substance abuse Z87.898 Active 788211176 Problem Cannabis abuse F12.10 Active 76484992 Problem Pain in right knee M25.561 Active 80394792 Problem Sebaceous cyst L72.3 Active 176184480 Problem Chronic hepatitis C without hepatic coma B18.2 Active 572605281 Problem Pain in left knee M25.562 Active 279716912315313 Problem Other chronic pain G89.29 Active 35345592 ALLERGIES No Information ENCOUNTERS Encounter Location Date Diagnosis [facility] [address] [place] [id number] [place] [address] Nov, Chronic hepatitis C without hepatic coma B18.2 and Cannabis abuse F12.10 [facility] [address] [place] [address] Nov, Chronic hepatitis C without hepatic coma B18.2 [facility] [address] [place] [address] Nov, Chronic hepatitis C without hepatic coma B18.2 [facility] [address] [place] [address] Nov, [facility] [id number] [place] [address] Nov, [facility] [address] [place] [address] Oct, [facility] [address] [id number] [place] [address] 22 Oct, 2017 Chronic hepatitis C without hepatic coma B18.2 ; Pain in right knee M25.561 ; Pain in left knee M25.562 ; Other chronic pain G89.29 ; Encounter for screening for malignant neoplasm of colon Z12.11 ; Encounter for screening for malignant neoplasm of rectum Z12.12 ; Family history of colon cancer Z80.0 and Family history of prostate cancer Z80.42 [place] [address] [address] Oct, Pain in right knee M25.561 ; Pain in left knee M25.562 ; Other chronic pain G89.29 ; Encounter for screening for malignant neoplasm of colon Z12.11 ; Encounter for screening for malignant neoplasm of rectum Z12.12 ; Family history of colon cancer Z80.0 and Family history of prostate cancer Z80.[address] [address] 07 Oct, 2017 Other chronic pain G89.29 ; Pain in left knee M25.562 and Pain in right knee M25.561 [facility] [address] [address] Mar, Drainage from penis R36.[address] [address] Aug, Visit for suture removal Z48.02 ; Gastroesophageal reflux disease with esophagitis K21.0 and Restless legs syndrome G25.81 [place] [address] [place] [id number] [place] [address] Aug, Sebaceous cyst L72.3 [place] [address] [address] Aug, Gastroesophageal reflux disease with esophagitis K21.0 ; History of substance abuse Z87.898 ; Sebaceous cyst L72.3 and Restless legs syndrome G25.81 [place] [address] [address] Aug, [facility] [address] [facility] [id number] [place] [address] Jul, Bloody stool K92.1 and Gastroesophageal reflux disease with esophagitis K21.0 IMMUNIZATIONS No Known Immunizations SOCIAL HISTORY Never Assessed REASON FOR VISIT Lab (walk-in) PLAN OF CARE VITAL SIGNS MEDICATIONS No Known Medications RESULTS No Results PROCEDURES Procedure Date Ordered Result Body Site ALANINE AMINO (ALT) (SGPT) November 12, 2017 LAB NOT BILLED BY [facility] November 12, 2017 INSTRUCTIONS MEDICATIONS ADMINISTERED No Known Medications MEDICAL (GENERAL) HISTORY Type Description Date Medical History Arthritis Medical History meniscal tear Medical History HEP C ( no treatment) Surgical History tonsillectomy Surgical History cholecystectomy Surgical History hernia repair Surgical History Tendon repair in hand-bilateral Hospitalization History Surgery only
--- OUTSIDE RECORDS SUMMARY | 2018-10-10 13:31 | XMS REPORT ---
Author Author KO RODRIGUEZ Organization [facility] Address [address] [place] [address] Care Team Providers Care Consumer Product Advisor Name Role Phone KO RODRIGUEZ Unavailable PROBLEMS Type Condition ICD9-CM Code RLD48-TY Code Onset Dates Condition Status SNOMED Code Problem Gastroesophageal reflux disease with esophagitis K21.0 Active 597382017 Problem Restless legs syndrome G25.81 Active 83791822 Problem History of substance abuse Z87.898 Active 446548520 Problem Cannabis abuse F12.10 Active 40528523 Problem Pain in right knee M25.561 Active 66783968 Problem Sebaceous cyst L72.3 Active 481816598 Problem Chronic hepatitis C without hepatic coma B18.2 Active 392497110 Problem Pain in left knee M25.562 Active 524538542068146 Problem Other chronic pain G89.29 Active 39198772 ALLERGIES No Information ENCOUNTERS Encounter Location Date Diagnosis [facility] [address] [address] Mar, Chronic hepatitis C without hepatic coma B18.2 [facility] [id number] [place] [address] Nov, Chronic hepatitis C without hepatic coma B18.2 and Cannabis abuse F12.10 [facility] [id number] [place] [address] Nov, Chronic hepatitis C without hepatic coma B18.2 [facility] [address] [address] Nov, Chronic hepatitis C without hepatic coma B18.2 [facility] [address] [place] [address] Nov, [facility] [address] [address] Nov, [facility] [address] [place] [id number] [place] [address] Oct, [facility] [address] [place] [id number] [place] [address] Oct, Chronic hepatitis C without hepatic coma B18.2 ; Pain in right knee M25.561 ; Pain in left knee M25.562 ; Other chronic pain G89.29 ; Encounter for screening for malignant neoplasm of colon Z12.11 ; Encounter for screening for malignant neoplasm of rectum Z12.12 ; Family history of colon cancer Z80.0 and Family history of prostate cancer Z80.42 [place] [address] [place] [id number] [place] [address] Oct, Pain in right knee M25.561 ; Pain in left knee M25.562 ; Other chronic pain G89.29 ; Encounter for screening for malignant neoplasm of colon Z12.11 ; Encounter for screening for malignant neoplasm of rectum Z12.12 ; Family history of colon cancer Z80.0 and Family history of prostate cancer Z80.42 [place] [address] [place] [address] [id number] [place] [address] Oct, Other chronic pain G89.29 ; Pain in left knee M25.562 and Pain in right knee M25.561 [facility] [address] [place] [id number] [place] [address] Mar, Drainage from penis R36.9 [place] [address] [place] [address] [id number] [place] [address] Aug, Visit for suture removal Z48.02 ; Gastroesophageal reflux disease with esophagitis K21.0 and Restless legs syndrome G25.81 [place] [address] [place] [address] [id number] [place] [address] Aug, Sebaceous cyst L72.3 [place] [address] [place] [id number] [place] [address] Aug, Gastroesophageal reflux disease with esophagitis K21.0 ; History of substance abuse Z87.898 ; Sebaceous cyst L72.3 and Restless legs syndrome G25.81 [facility] [address] [facility] [id number] [place] [address] Aug, [facility] [address] [facility] [id number] [place] [address] Jul, Bloody stool K92.1 and Gastroesophageal reflux disease with esophagitis K21.0 IMMUNIZATIONS No Known Immunizations SOCIAL HISTORY Never Assessed REASON FOR VISIT Hep C note, referral request PLAN OF CARE VITAL SIGNS MEDICATIONS Unknown Medications RESULTS No Results PROCEDURES No Known procedures INSTRUCTIONS MEDICATIONS ADMINISTERED No Known Medications MEDICAL (GENERAL) HISTORY Type Description Date Medical History Arthritis Medical History meniscal tear Medical History HEP C ( no treatment) Surgical History tonsillectomy Surgical History cholecystectomy Surgical History hernia repair Surgical History Tendon repair in hand-bilateral Hospitalization History Surgery only
--- OUTSIDE RECORDS SUMMARY | 2018-10-10 13:31 | XMS REPORT ---
Author Author SAVANA RAMIREZ [facility] Address [address] [place] [address] Care Team Providers Care Culinary Director Name Role Phone SAVANA RAMIREZ Unavailable PROBLEMS Type Condition ICD9-CM Code [id number] Code Onset Dates Condition Status SNOMED Code Problem Gastroesophageal reflux disease with esophagitis K21.0 Active 175669877 Problem Restless legs syndrome G25.81 Active 31739003 Problem History of substance abuse Z87.898 Active 951742604 Problem Cannabis abuse F12.10 Active 80365778 Problem Pain in right knee M25.561 Active 63782549 Problem Sebaceous cyst L72.3 Active 165559515 Problem Chronic hepatitis C without hepatic coma B18.2 Active 479379852 Problem Pain in left knee M25.562 Active 076658343291812 Problem Other chronic pain G89.29 Active 89007628 ALLERGIES No Information ENCOUNTERS Encounter Location Date Diagnosis [facility] [address] [address] Nov, Chronic hepatitis C without hepatic coma B18.2 and Cannabis abuse F12.10 [facility] [address] [place] [id number] [place] [address] Nov, Chronic hepatitis C without hepatic coma B18.2 [facility] [address] [address] Nov, Chronic hepatitis C without hepatic coma B18.2 [facility] [address] [place] [address] Nov, [facility] [address] [address] Nov, [facility] [address] [address] Oct, [place] [address] [place] [address] [id number] [place] [address] 22 Oct, 2017 Chronic hepatitis C without hepatic coma B18.2 ; Pain in right knee M25.561 ; Pain in left knee M25.562 ; Other chronic pain G89.29 ; Encounter for screening for malignant neoplasm of colon Z12.11 ; Encounter for screening for malignant neoplasm of rectum Z12.12 ; Family history of colon cancer Z80.0 and Family history of prostate cancer Z80.42 [place] [address] [address] 20 Oct, 2017 Pain in right knee M25.561 ; Pain in left knee M25.562 ; Other chronic pain G89.29 ; Encounter for screening for malignant neoplasm of colon Z12.11 ; Encounter for screening for malignant neoplasm of rectum Z12.12 ; Family history of colon cancer Z80.0 and Family history of prostate cancer Z80.42 [place] [address] [address] Oct, Other chronic pain G89.29 ; Pain in left knee M25.562 and Pain in right knee M25.561 [facility] [address] [address] Mar, Drainage from penis R36.9 [place] [address] [address] Aug, Visit for suture removal Z48.02 ; Gastroesophageal reflux disease with esophagitis K21.0 and Restless legs syndrome G25.81 [place] [address] [address] Aug, Sebaceous cyst L72.3 [place] [address] [address] Aug, Gastroesophageal reflux disease with esophagitis K21.0 ; History of substance abuse Z87.898 ; Sebaceous cyst L72.3 and Restless legs syndrome G25.81 [place] [address] [address] Aug, [facility] [address] [facility] [id number] [place] [address] Jul, Bloody stool K92.1 and Gastroesophageal reflux disease with esophagitis K21.0 IMMUNIZATIONS No Known Immunizations SOCIAL HISTORY Never Assessed REASON FOR VISIT Appointment PLAN OF CARE VITAL SIGNS MEDICATIONS No [...]
--- OUTSIDE RECORDS SUMMARY | 2018-10-10 13:31 | XMS REPORT ---
Author Author KO RODRIGUEZ Organization [facility] Address [address] [place] [address] Care Team Providers Care Bottle Capper Name Role Phone KO RODRIGUEZ Unavailable PROBLEMS Type Condition ICD9-CM Code WOU33-PS Code Onset Dates Condition Status SNOMED Code Problem Gastroesophageal reflux disease with esophagitis K21.0 Active 536371131 Problem Restless legs syndrome G25.81 Active 95774050 Problem History of substance abuse Z87.898 Active 137534335 Problem Cannabis abuse F12.10 Active 30944559 Problem Pain in right knee M25.561 Active 90402958 Problem Sebaceous cyst L72.3 Active 375159247 Problem Chronic hepatitis C without hepatic coma B18.2 Active 454247058 Problem Pain in left knee M25.562 Active 682073137403991 Problem Other chronic pain G89.29 Active 39221735 ALLERGIES No Information ENCOUNTERS Encounter Location Date Diagnosis [place] [id number] [place] [id number] [place] [address] Nov, Chronic hepatitis C without hepatic coma B18.2 and Cannabis abuse F12.10 [facility] [address] [place] [address] Nov, Chronic hepatitis C without hepatic coma B18.2 [facility] [address] [id number] [place] [address] Nov, Chronic hepatitis C without hepatic coma B18.2 [facility] [address] [place] [address] Nov, [facility] [id number] [place] [address] Nov, [facility] [id number] [place] [address] Oct, [facility] [address] [id number] [place] [address] 22 Oct, 2017 Chronic hepatitis C without hepatic coma B18.2 ; Pain in right knee M25.561 ; Pain in left knee M25.562 ; Other chronic pain G89.29 ; Encounter for screening for malignant neoplasm of colon Z12.11 ; Encounter for screening for malignant neoplasm of rectum Z12.12 ; Family history of colon cancer Z80.0 and Family history of prostate cancer Z80.42 [place] [address] [address] 20 Oct, 2017 Pain in right knee M25.561 ; Pain in left knee M25.562 ; Other chronic pain G89.29 ; Encounter for screening for malignant neoplasm of colon Z12.11 ; Encounter for screening for malignant neoplasm of rectum Z12.12 ; Family history of colon cancer Z80.0 and Family history of prostate cancer Z80.42 [place] [address] [address] Oct, Other chronic pain G89.29 ; Pain in left knee M25.562 and Pain in right knee M25.561 [facility] WALK IN [facility] [address] [address] Mar, Drainage from penis R36.9 [place] [address] [address] Aug, Visit for suture removal Z48.02 ; Gastroesophageal reflux disease with esophagitis K21.0 and Restless legs syndrome G25.81 [place] [address] [address] Aug, Sebaceous cyst L72.3 [place] [address] [address] Aug, Gastroesophageal reflux disease with esophagitis K21.0 ; History of substance abuse Z87.898 ; Sebaceous cyst L72.3 and Restless legs syndrome G25.81 [place] [address] [address] Aug, [facility] [address] [facility] [id number] [place] [address] Jul, Bloody stool K92.1 and Gastroesophageal reflux disease with esophagitis K21.0 IMMUNIZATIONS No Known Immunizations SOCIAL HISTORY Never Assessed REASON FOR VISIT Hep C note PLAN OF CARE VITAL SIGNS MEDICATIONS No [...]
--- OUTSIDE RECORDS SUMMARY | 2018-10-10 13:31 | XMS REPORT ---
Author Author KAYDEN CLAY Organization [facility] Address [address] [place] [address] Care Team Providers Care Charge Aide Name Role Phone KAYDEN CLAY Unavailable PROBLEMS Type Condition ICD9-CM Code OLB30-CI Code Onset Dates Condition Status SNOMED Code Problem Gastroesophageal reflux disease with esophagitis K21.0 Active 952962180 Problem Restless legs syndrome G25.81 Active 01214732 Problem History of substance abuse Z87.898 Active 372235319 Problem Cannabis abuse F12.10 Active 12548915 Problem Pain in right knee M25.561 Active 25346502 Problem Sebaceous cyst L72.3 Active 400381099 Problem Chronic hepatitis C without hepatic coma B18.2 Active 858462112 Problem Pain in left knee M25.562 Active 668696221881063 Problem Other chronic pain G89.29 Active 53766417 ALLERGIES No Known Allergies ENCOUNTERS Encounter Location Date Diagnosis [facility] [address] [address] Nov, Chronic hepatitis C without hepatic coma B18.2 and Cannabis abuse F12.10 [facility] [address] [place] [address] [id number] [place] [address] Nov, Chronic hepatitis C without hepatic coma B18.2 [facility] [address] [address] Nov, Chronic hepatitis C without hepatic coma B18.2 [facility] [address] [place] [address] Nov, [facility] [id number] [place] [address] Nov, [facility] [id number] [place] [address] Oct, [place] [address] [id number] [place] [address] 22 Oct, 2017 Chronic hepatitis C without hepatic coma B18.2 ; Pain in right knee M25.561 ; Pain in left knee M25.562 ; Other chronic pain G89.29 ; Encounter for screening for malignant neoplasm of colon Z12.11 ; Encounter for screening for malignant neoplasm of rectum Z12.12 ; Family history of colon cancer Z80.0 and Family history of prostate cancer Z80.42 [place] [address] [address] 20 Oct, 2017 Pain in right knee M25.561 ; Pain in left knee M25.562 ; Other chronic pain G89.29 ; Encounter for screening for malignant neoplasm of colon Z12.11 ; Encounter for screening for malignant neoplasm of rectum Z12.12 ; Family history of colon cancer Z80.0 and Family history of prostate cancer Z80.42 [place] [address] [address] 07 Oct, 2017 Other chronic pain G89.29 ; Pain in left knee M25.562 and Pain in right knee M25.561 [facility] WALK IN [facility] [address] [address] Mar, Drainage from penis R36.9 [place] [address] [address] Aug, Visit for suture removal Z48.02 ; Gastroesophageal reflux disease with esophagitis K21.0 and Restless legs syndrome G25.81 [place] [address] [address] [id number] [place] [address] Aug, Sebaceous cyst L72.3 [place] [address] [address] Aug, Gastroesophageal reflux disease with esophagitis K21.0 ; History of substance abuse Z87.898 ; Sebaceous cyst L72.3 and Restless legs syndrome G25.81 [place] [address] [address] Aug, [facility] [address] [facility] [id number] [place] [address] Jul, Bloody stool K92.1 and Gastroesophageal reflux disease with esophagitis K21.0 IMMUNIZATIONS No Known Immunizations SOCIAL HISTORY Never Assessed REASON FOR VISIT Hep C initial visit-MILLIE cabezas, G=1A and Q=4.24 to 6.33 million when run on same day. Clean over 10 years, no ETOH. Appears to be a good candidate for treatment. Process discussed at length with pt prior to appt-susy aguayo PLAN OF CARE Activity Details Follow Up with PCP Reason: VITAL SIGNS Height 69.5 in 2017-11-18 Weight 251.0 lbs 2017-11-18 Temperature 98.5 degrees Fahrenheit 2017-11-18 Heart Rate 150 bpm 2017-11-18 Respiratory Rate 22 2017-11-18 Oximetry on room air:97 % 2017-11-18 BMI 36.53 kg/m2 2017-11-18 Blood pressure systolic 138 mmHg 2017-11-18 Blood pressure diastolic 82 mmHg 2017-11-18 MEDICATIONS Medication Instructions Dosage Frequency Start Date End Date Duration Status Neurontin 300 MG Orally Three times a day 1 capsule 8h Oct, Active Chantix 1 MG Orally Twice a day 1 tablet 12h Oct, 30 day(s) Active Diclofenac Sodium 75 MG Orally Twice a day 1 tablet with food or milk 12h Oct, 30 day(s) Active RESULTS No Results PROCEDURES Procedure Date Ordered Result Body Site [facility] VISIT ESTABLISHED PATIENT November 18, 2017 INSTRUCTIONS MEDICATIONS ADMINISTERED No Known Medications MEDICAL (GENERAL) HISTORY Type Description Date Medical History Arthritis Medical History meniscal tear Medical History HEP C ( no treatment) Surgical History tonsillectomy Surgical History cholecystectomy Surgical History hernia repair Surgical History Tendon repair in hand-bilateral Hospitalization History Surgery only
--- OUTSIDE RECORDS SUMMARY | 2018-10-10 13:31 | XMS REPORT ---
Author Author KO RODRIGUEZ Organization [facility] Address [address] [place] [address] Care Team Providers Care Senior Advocate Name Role Phone KO RODRIGUEZ Unavailable PROBLEMS Type Condition ICD9-CM Code IAN43-ZW Code Onset Dates Condition Status SNOMED Code Problem Gastroesophageal reflux disease with esophagitis K21.0 Active 537302417 Problem Restless legs syndrome G25.81 Active 49008587 Problem History of substance abuse Z87.898 Active 499631678 Problem Cannabis abuse F12.10 Active 78553273 Problem Pain in right knee M25.561 Active 46954054 Problem Sebaceous cyst L72.3 Active 546770227 Problem Chronic hepatitis C without hepatic coma B18.2 Active 651340887 Problem Pain in left knee M25.562 Active 525648044903510 Problem Other chronic pain G89.29 Active 09155742 ALLERGIES No Information ENCOUNTERS Encounter Location Date Diagnosis [facility] [id number] [place] [address] Nov, Chronic hepatitis C without hepatic coma B18.2 and Cannabis abuse F12.10 [facility] [address] [place] [address] Nov, Chronic hepatitis C without hepatic coma B18.2 [facility] [address] [place] [address] Nov, Chronic hepatitis C without hepatic coma B18.2 [facility] [address] [place] [address] Nov, [facility] [id number] [place] [address] Nov, [facility] [address] [place] [address] Oct, [facility] [id number] [place] [address] 22 Oct, 2017 Chronic hepatitis C without hepatic coma B18.2 ; Pain in right knee M25.561 ; Pain in left knee M25.562 ; Other chronic pain G89.29 ; Encounter for screening for malignant neoplasm of colon Z12.11 ; Encounter for screening for malignant neoplasm of rectum Z12.12 ; Family history of colon cancer Z80.0 and Family history of prostate cancer Z80.42 [place] [address] [address] Oct, Pain in right knee M25.561 ; Pain in left knee M25.562 ; Other chronic pain G89.29 ; Encounter for screening for malignant neoplasm of colon Z12.11 ; Encounter for screening for malignant neoplasm of rectum Z12.12 ; Family history of colon cancer Z80.0 and Family history of prostate cancer Z80.[address] [address] 07 Oct, 2017 Other chronic pain G89.29 ; Pain in left knee M25.562 and Pain in right knee M25.561 [facility]ALK IN [facility] [address] [address] Mar, Drainage from penis R36.[address] [address] Aug, Visit for suture removal Z48.02 ; Gastroesophageal reflux disease with esophagitis K21.0 and Restless legs syndrome G25.81 [place] [address] [address] [id number] [place] [address] Aug, Sebaceous cyst L72.3 [place] [address] [address] Aug, Gastroesophageal reflux disease with esophagitis K21.0 ; History of substance abuse Z87.898 ; Sebaceous cyst L72.3 and Restless legs syndrome G25.81 [place] [address] [address] Aug, [facility] IN [facility] [address] [facility] [id number] [place] [address] Jul, Bloody stool K92.1 and Gastroesophageal reflux disease with esophagitis K21.0 IMMUNIZATIONS No Known Immunizations SOCIAL HISTORY Never Assessed REASON FOR VISIT medication PLAN OF CARE VITAL SIGNS MEDICATIONS No [...]
[2018-10-10] MEDS ORDERED: NS IV 1000 ML 1,000 ML IV ONE (14:17)
[2018-10-10 14:44] LABS: BASOPHILS # (AUTO) 0.1 10^3/uL (0.0-0.1); BASOPHILS % (AUTO) 1 % (0-10); EOSINOPHILS # (AUTO) 0.1 10^3/uL (0.0-0.3); EOSINOPHILS % (AUTO) 1 % (0-10); HEMATOCRIT 42 % (40-54); HEMOGLOBIN 14.1 G/DL (13.3-17.7); LYMPHOCYTES # (AUTO) 1.9 X 10^3 (1.0-4.0); LYMPHOCYTES % (AUTO) 17 % (12-44); MEAN CORPUSCULAR HEMOGLOBIN 30 PG (25-34); MEAN CORPUSCULAR HGB CONC 34 G/DL (32-36); MEAN CORPUSCULAR VOLUME 87 FL (80-99); MEAN PLATELET VOLUME 9.9 FL (7.4-10.4); MONOCYTES # (AUTO) 1.3 X 10^3 (0.0-1.0); MONOCYTES % (AUTO) 11 % (0-12); NEUTROPHILS # (AUTO) 7.8 X 10^3 (1.8-7.8); NEUTROPHILS % (AUTO) 70 % (42-75); PLATELET COUNT 328 10^3/uL (130-400); WHITE BLOOD COUNT 11.1 10^3/uL (4.3-11.0)
--- NOTE | 2018-10-10 15:02 | Diagnostic Imaging Report ---
EXAM: CHEST 1 VIEW, AP/PA ONLY. INDICATION: Recent bronchoscopy. "Blood clots". Fatigue. COMPARISON: Chest radiograph 10/05/2018. FINDINGS: Normal heart size and central pulmonary vascularity. Mild bibasilar atelectasis or infiltrate is similar to the prior exam. Eventration of the right hemidiaphragm. No pleural effusion or pneumothorax. No acute osseous findings. IMPRESSION: Stable bibasilar atelectasis or infiltrate. No acute cardiopulmonary findings. Dictated by: Dictated on workstation # [id number]
[2018-10-10 15:05] LABS: PROTHROMBIN TIME PATIENT 13.9 SEC (12.2-14.7)
[2018-10-10 15:11] LABS: ALANINE AMINOTRANSFERASE 15 U/L (0-55); ALBUMIN 3.8 GM/DL (3.2-4.5); ALKALINE PHOSPHATASE 50 U/L (40-136); BILIRUBIN,TOTAL 0.5 MG/DL (0.1-1.0); BUN/CREATININE RATIO 21; CALCIUM 9.4 MG/DL (8.5-10.1); CARBON DIOXIDE 20 MMOL/L (21-32); CHLORIDE 103 MMOL/L (98-107); CREATININE SERUM 0.72 MG/DL (0.60-1.30); GFR ESTIMATED > 60; GLUCOSE 92 MG/DL (70-105); MAGNESIUM 2.3 MG/DL (1.8-2.4); POTASSIUM 4.3 MMOL/L (3.6-5.0); SODIUM 135 MMOL/L (135-145); TOTAL PROTEIN 7.3 GM/DL (6.4-8.2)
--- NOTE | 2018-10-10 15:12 | NUR ---
Patient is resting comfortably at this time.
--- NOTE | 2018-10-10 16:45 | ED General ---
General Chief Complaint: General Problems/Pain Stated Complaint: ABD PAIN Nursing Triage Note: patient states discharged from hospital on thursday. lives alone. pt states unable to take care of himself. has not eaten in two day. pt states "doesn't feel right. " Nursing Sepsis Screen: No Definite Risk Source of Information: Patient, Old Records Exam Limitations: No Limitations History of Present Illness Date Seen by Provider: Oct 10, 2018 Time Seen by Provider: 14:01 Initial Comments This 58-year-old gentleman presents to the emergency room feeling weak and complaining of a strange feeling in his chest and general weakness. He had a left knee replacement last week and had complications with atrial flutter with RVR. He returned home to his small trailer house by himself. He has found it very difficult to care for himself. He cannot do dressing changes on his surgery site and cannot get up and about to obtain and prepare meals. He has not eaten well since returning home. He feels ill and is desperate for assistance. He would like to ultimately seek rehabilitation in a medical facility. He took his medications this morning including Eliquis and Cardizem ER 240. Allergies and Home Medications Allergies Coded Allergies: No Known Drug Allergies (Unverified , 07/27/16) Home Medications Apixaban 5 Mg Tablet, 5 MG PO BID Prescribed by: MONIK TO on 10/08/18 0840 Diltiazem HCl 120 Mg Cap.er.24h, 120 MG PO DAILY, (Reported) Diltiazem HCl 240 Mg Cap.er.24h, 240 MG PO DAILY Prescribed by: MONIK TO on 10/08/18 0840 Metoprolol Tartrate 25 Mg Tablet, 25 MG PO BID Prescribed by: MONIK TO on 10/08/18 0840 Oxycodone HCl/Acetaminophen 1 Each Tablet, 1 TAB PO Q4H Prescribed by: DAVID ALVES on 10/06/18 0930 Patient Home Medication List Home Medication List Reviewed: Yes Review of Systems Review of Systems Constitutional: see HPI, weakness EENTM: no symptoms reported Respiratory: no symptoms reported Cardiovascular: see HPI Gastrointestinal: no symptoms reported Genitourinary: no symptoms reported Musculoskeletal: see HPI Skin: no symptoms reported Psychiatric/Neurological: No Symptoms Reported Hematologic/Lymphatic: No Symptoms Reported Past Whcjzhi-Dkjtxn-Sbmxcg Hx Past Med/Social Hx: Reviewed and Corrections made Patient Social History Alcohol Use: Occasionally Uses Number of Drinks Today: AA Alcohol Beverage of Choice: Beer Recreational Drug Use: Yes Drug of Choice: marajuana Type Used: Cigarettes 2nd Hand Smoke Exposure: Yes Recent Foreign Travel: No Contact w/Someone Who Travel: No Recent Infectious Disease Expo: No Recent Hopitalizations: No Immunizations Up To Date Tetanus Booster (TDap): Unknown PED Vaccines UTD: Yes Seasonal Allergies Seasonal Allergies: No Past Medical History Surgeries: Yes Abdominal, Adenoidectomy, Gallbladder, Joint Replacement (Left knee), Ort hopedic, Tonsillectomy Respiratory: No Cardiac: Yes Atrial Fibrillation (Atrial flutter) Neurological: No Reproductive Disorders: No Sexually Transmitted Disease: Yes HIV/AIDS: No Genitourinary: No Gastrointestinal: No Musculoskeletal: Yes (bilateral knee pain) Arthritis Endocrine: No HEENT: No Hearing Impairment: Hard of Hearing Cancer: No Psychosocial: No Anxiety, Depression Integumentary: No Blood Disorders: No Adverse Reaction/Blood Tranf: No Family Medical History Colon cancer 19 FATHER Dementia 19 FATHER Diabetes mellitus 19 FATHER Hypertension 19 FATHER G8 BROTHER Thyroid disease G8 SISTER Physical Exam Vital Signs Vital Signs - First Documented 10/10/18 13:48 Temp 97.7 Pulse 65 Resp 18 B/P (MAP) 122/77 (92) Pulse Ox 98 O2 Delivery Room Air Capillary Refill : Less Than 3 Seconds Height, Weight, BMI Height: 5'9.00" Weight: 200lbs. 0.9oz. 90.880590zh; 35.0 BMI Method:Stated General Appearance: No Apparent Distress, WD/WN HEENT: PERRL/EOMI, Normal ENT Inspection, Other (Oropharynx somewhat dry) Neck: Normal Inspection Respiratory: Lungs Clear, Normal Breath Sounds, No Accessory Muscle Use, No Respiratory Distress Cardiovascular: Regular Rate, Rhythm, No Murmur Gastrointestinal: Non Tender, Soft Extremity: Other (Bilateral lower extremity edema with post surgical changes to the left leg. 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 Norm as Tested Skin: Normal Color, Warm/Dry, Ecchymosis (At surgical site) Progress/Results/Core Measures Suspected Sepsis Recent Fever Within 48 Hours: No Infection Criteria Present: None New/Unexplained Altered Menta: No Sepsis Screen: No Definite Risk SIRS Temperature:97.7 Pulse: 65 Respiratory Rate: 18 Laboratory Tests 10/10/18 14:39: White Blood Count 11.1H Blood Pressure 122 /77 Mean: 92 Laboratory Tests 10/10/18 14:39: Creatinine 0.72, INR Comment 1.0, Platelet Count 328, Total Bilirubin 0.5 Results/Orders Lab Results Laboratory Tests Test 10/10/18 14:39 Range/Units White Blood Count 11.1 H 4.3-11.0 10^3/uL Red Blood Count 4.76 4.35-5.85 10^6/uL Hemoglobin 14.1 13.3-17.7 G/DL Hematocrit 42 40-54 % Mean Corpuscular Volume 87 80-99 FL Mean Corpuscular Hemoglobin 30 25-34 PG Mean Corpuscular Hemoglobin Concent 34 32-36 G/DL Red Cell Distribution Width 15.0 H 10.0-14.5 % Platelet Count 328 130-400 10^3/uL Mean Platelet Volume 9.9 7.4-10.4 FL Neutrophils (%) (Auto) 70 42-75 % Lymphocytes (%) (Auto) 17 12-44 % Monocytes (%) (Auto) 11 0-12 % Eosinophils (%) (Auto) 1 0-10 % Basophils (%) (Auto) 1 0-10 % Neutrophils # (Auto) 7.8 1.8-7.8 X 10^3 Lymphocytes # (Auto) 1.9 1.0-4.0 X 10^3 Monocytes # (Auto) 1.3 H 0.0-1.0 X 10^3 Eosinophils # (Auto) 0.1 0.0-0.3 10^3/uL Basophils # (Auto) 0.1 0.0-0.1 10^3/uL Prothrombin Time 13.9 12.2-14.7 SEC INR Comment 1.0 0.8-1.4 Activated Partial Thromboplast Time 32 24-35 SEC Sodium Level 135 135-145 MMOL/L Potassium Level 4.3 3.6-5.0 MMOL/L Chloride Level 103 98-107 MMOL/L Carbon Dioxide Level 20 L 21-32 MMOL/L Anion Gap 12 5-14 MMOL/L Blood Urea Nitrogen 15 7-18 MG/DL Creatinine 0.72 0.60-1.30 MG/DL Estimat Glomerular Filtration Rate > 60 BUN/Creatinine Ratio 21 Glucose Level 92 70-105 MG/DL Calcium Level 9.4 8.5-10.1 MG/DL Corrected Calcium 9.6 8.5-10.1 MG/DL Magnesium Level 2.3 1.8-2.4 MG/DL Total Bilirubin 0.5 0.1-1.0 MG/DL Aspartate Amino Transf (AST/SGOT) 23 5-34 U/L Alanine Aminotransferase (ALT/SGPT) 15 0-55 U/L Alkaline Phosphatase 50 40-136 U/L Myoglobin 31.0 10.0-92.0 NG/ML Troponin I < 0.028 <0.028 NG/ML Total Protein 7.3 6.4-8.2 GM/DL Albumin 3.8 3.2-4.5 GM/DL My Orders Orders - VICTOR MANUEL MERCEDES MD Cbc With Automated Diff (10/10/18 14:17) Magnesium (10/10/18 14:17) Chest 1 View, Ap/Pa Only (10/10/18 14:17) Ekg Tracing (10/10/18 14:17) Cardiac Profile 1 (10/10/18 14:17) Comprehensive Metabolic Panel (10/10/18 14:17) Myoglobin Serum (10/10/18 14:17) Protime With Inr (10/10/18 14:17) Partial Thromboplastin Time (10/10/18 14:17) O2 (10/10/18 14:17) Monitor-Rhythm Ecg Trace Only (10/10/18 14:17) Lipid Panel (10/11/18 06:00) Ed Iv/Invasive Line Start (10/10/18 14:17) Ns Iv 1000 Ml (Sodium Chloride 0.9%) (10/10/18 14:17) Medications Given in ED Current Medications Medications Dose Ordered Sig/Nic Route Start Time Stop Time Status Last Admin Dose Admin Sodium Chloride 1,000 ml @ 0 mls/hr Q0M ONCE IV 10/10/18 14:17 10/10/18 14:18 DC 10/10/18 14:43 0 MLS/HR Vital Signs/I&O 10/10/18 10/10/18 10/10/18 10/10/18 13:48 14:01 17:09 17:10 Temp 97.7 98.0 Pulse 65 129 64 Resp 18 16 20 B/P (MAP) 122/77 (92) 128/82 (97) 134/71 (92) Pulse Ox 98 97 97 96 O2 Delivery Room Air Room Air Room Air Room Air 10/10/18 10/10/18 17:34 17:48 Temp 98.0 Pulse 64 141 Resp 20 B/P (MAP) 134/71 Capillary Refill : Less Than 3 Seconds Blood Pressure Mean: 92 Progress Note : Progress Note Patient's tachycardia improved with IV hydration. Monitor was still reading heart rate in the 110s but this was doubling due to atrial flutter. Palpable pulse rate was in the 60s. Patient basically is debilitated postoperatively and unable to care for himself. He has not been eating or drinking well because he is having difficulty obtaining and preparing food for himself. He is not able to do appropriate dressing changes and manage his compressive stockings. He is being admitted for observation, supportive care, and assessment by rehabilitation and social work. Patient was feeling improved after IV hydration and a meal. ECG Initial ECG Impression Date: Oct 10, 2018 Initial ECG Impression Time: 14:01 Initial ECG Rate: 128 Initial ECG Rhythm: A Fib/Flutter Initial ECG Impression: Atrial Fibrillation w/RVR Comment Atrial flutter with RVR. No ischemic changes. Diagnostic Imaging Diagonstic Imaging: Xray Plain Films/CT/US/NM/MRI: chest Comments NAME: DAVION CUBA [facility] REC#: [id number] PT STATUS: REG ER : 1960 PHYSICIAN: VICTOR MANUEL MERCEDES MD ADMIT DATE: 10/10/18/ER Signed Date of Exam: 10/10/18 CHEST 1 VIEW, AP/PA ONLY EXAM: CHEST 1 VIEW, AP/PA ONLY. INDICATION: Recent bronchoscopy. "Blood clots". Fatigue. COMPARISON: Chest radiograph 10/05/2018. FINDINGS: Normal heart size and central pulmonary vascularity. Mild bibasilar atelectasis or infiltrate is similar to the prior exam. Eventration of the right hemidiaphragm. No pleural effusion or pneumothorax. No acute osseous findings. IMPRESSION: Stable bibasilar atelectasis or infiltrate. No acute cardiopulmonary findings. Dictated by: Dictated on workstation # [id number] Dict: 10/10/18 1456 Trans: 10/10/18 1544 Interpreted by: SCOTTIE BECKWITH MD Electronically signed by: SCOTTIE BECKWITH MD 10/10/18 1544 Departure Communication (Admissions) Time/Spoke to Admitting Phy: 16:10 Dr. Chavez Time/Spoke to Consulting Phy: 16:30 Dr. To Impression Primary Impression: Postoperative pain Additional Impressions: Debility Atrial flutter Qualified Codes: I48.92 - Unspecified atrial flutter Decreased oral intake Disposition: ADMITTED INPATIENT Condition: Improved Admissions Decision to Admit Reason: Admit from ER (General) Decision to Admit/Date: Oct 10, 2018 Time/Decision to Admit Time: 16:10 Departure-Patient Inst. [facility] (PCP) Primary Care Physician KO RODRIGUEZP (Family) Primary Care Physician VICTOR MANUEL MERCEDES MD Oct 10, 2018 16:45
[2018-10-10 17:10] VITALS: BP 134/71
--- NOTE | 2018-10-10 17:10 | NUR ---
DAVION CUBA admitted to room 430-1, with an admitting diagnosis of post op pain, A Flutter, Inability to care for self, on 10/10/18 from ED via W/C, accompanied by Staff. DAVION CUBA introduced to surroundings, call light, bed controls, phone, TV, temperature control, lights, meal times, smoking policy, visitor policy, side rail policy, bathrooms and showers. Patient Rights given to patient in the handbook. DAVION CUBA verbalizes understanding that [facility] is not responsible for the loss or damage to any personal effects or valuables that are kept in the patients posession during their hospitalization. The following Patient Care Plans were discussed with the patient: Discharge Planning, knowledge, immobility, injury and cardiac arrythmia. DAVION CUBA verbalizes understanding of Interdisciplinary Patient Education.
[2018-10-10] MEDS ORDERED: ONDANSETRON 4 MG/2 ML (SDV) Z0FRAN IV PRN (17:30)
[2018-10-10] MEDS ORDERED: CATHETER FLUSH 10 ML SYR IV PRN (17:30)
[2018-10-10 17:34] VITALS: BP 134/71
[2018-10-10] MEDS: oxyCODONE/APAP 5/325MG (PERCOCET 5) TABLET PO PRN ×2 (17:52→22:01)
[2018-10-10 18:00] VITALS: BP 163/74
--- NOTE | 2018-10-10 18:00 | NUR ---
DRESSING CHANGED TO RIGHT KNEE INCISION, MOHINI INTACT, BRUISES ON RIGHT KNEE, ICE PACK APPLIED TO KNEE, STATES HE DID NOT USE POLAR ICE PACK AT HOME, EMILY HOSE CHANGED, LEFT FOOT 1+ EDEMA.
--- NOTE | 2018-10-10 18:30 | NUR ---
ICU REPORTED A FLUTTER ON TELEMETRY RATE 140-175, DR BRITO NOTIFIED, INSTRUCTED HE WOULD CALL ICU AND HAVE THE LEDS ADJUSTED, BP 163/74, PULE 68, RESP 20, O2 SAT ON ROOM AIR 97, PATIENT DENIES PAIN OR SOB
[2018-10-10] MEDS ORDERED: ALPRAZolam 0.25 MG (XANAX) TAB PO PRN (19:00)
[2018-10-10] MEDS ORDERED: diphenhydrAMINE 25 MG TAB (BENADRYL) PO PRN (19:00)
[2018-10-10] MEDS ORDERED: MELATONIN 3 MG TABLET PO PRN (19:00)
[2018-10-10] MEDS ORDERED: ACETAMINOPHEN 500 MG TAB (TYLENOL) PO PRN (19:00)
[2018-10-10] MEDS ORDERED: CALCIUM CARBONATE 500 MG (TUMS) TAB.CHEW PO PRN (19:00)
[2018-10-10] MEDS ORDERED: POLYETHYLENE GLYCOL 17 GM (MIRALAX) PACK PO PRN (19:00)
[2018-10-10] MEDS ORDERED: LOPERAMIDE 2 MG (IMODIUM) CAP PO PRN (19:00)
[2018-10-10] MEDS ORDERED: ONDANSETRON 4 MG/2 ML (SDV) Z0FRAN IVP PRN (19:00)
[2018-10-10] MEDS ORDERED: DOCUSATE SODIUM 100 MG (COLACE) CAP PO PRN (19:00)
[2018-10-10 19:57] VITALS: BP 140/81
[2018-10-10] MEDS: meTOprolol TARTRATE 25 MG (LOPRESSOR) TABLET PO SCH (21:22)
[2018-10-10] MEDS: APIXABAN 5 MG (ELIQUIS) TABLET PO SCH (21:22)
[2018-10-10] MEDS: CATHETER FLUSH 10 ML SYR IV SCH (21:23)
[2018-10-10] MEDS: SENNA W/DOCUSATE (SENOKOT S) TABLET PO SCH (21:24)
[2018-10-11 00:01] VITALS: BP 110/57
[2018-10-11 03:20] VITALS: BP 133/79
[2018-10-11] MEDS: CATHETER FLUSH 10 ML SYR IV SCH ×2 (05:43→14:12)
[2018-10-11 06:11] LABS: BASOPHILS % (AUTO) 0 % (0-10); EOSINOPHILS # (AUTO) 0.4 10^3/uL (0.0-0.3); EOSINOPHILS % (AUTO) 4 % (0-10); HEMATOCRIT 40 % (40-54); HEMOGLOBIN 13.3 G/DL (13.3-17.7); LYMPHOCYTES # (AUTO) 2.1 X 10^3 (1.0-4.0); LYMPHOCYTES % (AUTO) 20 % (12-44); MEAN CORPUSCULAR HEMOGLOBIN 29 PG (25-34); MEAN CORPUSCULAR HGB CONC 33 G/DL (32-36); MEAN CORPUSCULAR VOLUME 88 FL (80-99); MONOCYTES # (AUTO) 1.3 X 10^3 (0.0-1.0); MONOCYTES % (AUTO) 12 % (0-12); NEUTROPHILS # (AUTO) 6.7 X 10^3 (1.8-7.8); NEUTROPHILS % (AUTO) 64 % (42-75); PLATELET COUNT 325 10^3/uL (130-400); RED CELL DISTRIBUTION WIDTH 15.1 % (10.0-14.5); WHITE BLOOD COUNT 10.6 10^3/uL (4.3-11.0)
[2018-10-11 06:36] LABS: ALANINE AMINOTRANSFERASE 15 U/L (0-55); ALBUMIN 3.6 GM/DL (3.2-4.5); ALKALINE PHOSPHATASE 48 U/L (40-136); BILIRUBIN,TOTAL 0.7 MG/DL (0.1-1.0); BUN/CREATININE RATIO 15; CALCIUM 9.2 MG/DL (8.5-10.1); CARBON DIOXIDE 19 MMOL/L (21-32); CHLORIDE 106 MMOL/L (98-107); CREATININE SERUM 0.67 MG/DL (0.60-1.30); GFR ESTIMATED > 60; GLUCOSE 98 MG/DL (70-105); POTASSIUM 3.9 MMOL/L (3.6-5.0); SODIUM 136 MMOL/L (135-145); TOTAL PROTEIN 6.7 GM/DL (6.4-8.2)
[2018-10-11 06:37] LABS: CHOLESTEROL 179 MG/DL (< 200); HDL CHOLESTEROL 42 MG/DL (40-60); TRIGLYCERIDES 102 MG/DL (<150); VLDL CHOLESTEROL 20 MG/DL (5-40)
[2018-10-11 08:00] VITALS: BP 144/79
--- NOTE | 2018-10-11 08:30 | NUR ---
PRIOR TO A.M. MEDICATIONS PULSE WAS 60 B/P WAS 144/79.
[2018-10-11] MEDS: SENNA W/DOCUSATE (SENOKOT S) TABLET PO SCH (08:39)
[2018-10-11] MEDS: meTOprolol TARTRATE 25 MG (LOPRESSOR) TABLET PO SCH (08:39)
[2018-10-11] MEDS: APIXABAN 5 MG (ELIQUIS) TABLET PO SCH (08:39)
--- NOTE | 2018-10-11 08:48 | Consultation-Cardiology ---
HPI-Cardiology Cardiology Consultation Date of Consultation 10/11/18 Date of Admission Time Seen by Provider: 08:44 Indication: Atrial flutter with RVR HPI Patient is a 58 y/o male with history of Atrial flutter. Was hospitalized last week, underwent total knee replacement, was found to be in atrial flutter with RVR. Underwent [place] last week revealing left atrial thrombus, rate was well controlled with medication, was placed on Eliquis. Patient was discharged home on 10/08/18, unfortunately, he reports he was unable to take care of himself once home and presented back to the ER. Patient was dehydrated upon admission. Heart rate improved with IVF's. Currently denies any chest pain or palpitations. Denies any dizziness or lightheadedness. Continues to complain of left knee pain. Home Medications & Allergies Allergies: Coded Allergies: No Known Drug Allergies (Unverified , 07/27/16) Home Medication List Reviewed: Yes CIR-Hienwy-Fsaxfz Hx Patient Social History Marital Status: single Alcohol Use: Occasionally Uses Recreational Drug Use: Yes Drug of Choice: marajuana Type Used: Cigarettes 2nd Hand Smoke Exposure: Yes Recent Foreign Travel: No Recent Infectious Disease Expo: No Recent Hopitalizations: No Physical Abuse Screen: No Sexual Abuse: No Immunizations Up To Date Tetanus Booster (TDap): Unknown Past Medical History atrial flutter Family Medical History Significant Family History: No Pertinent Family Hx Family History: Colon cancer 19 FATHER Dementia 19 FATHER Diabetes mellitus 19 FATHER Hypertension 19 FATHER G8 BROTHER Thyroid disease G8 SISTER Review of Systems-General Review of Systems Constitutional: malaise, weakness EENTM: No ear discharge, No hearing loss, No ear pain, No blurred vision, No double vision, No vision loss, No epistaxis, No nose congestion, No nose pain Respiratory: no symptoms reported; No cough, No dyspnea on exertion Cardiovascular: see HPI; No edema, No palpitations, No syncope, No vascular heart diseas Gastrointestinal: no symptoms reported Genitourinary: no symptoms reported Musculoskeletal: joint pain (left knee), joint swelling, muscle pain Skin: no symptoms reported Psychiatric/Neurological: No Symptoms Reported Reviewed Test Results Reviewed Test Results Lab Laboratory Tests 10/10/18 14:39: White Blood Count 11.1H, Red Blood Count 4.76, Hemoglobin 14.1, Hematocrit 42, Mean Corpuscular Volume 87, Mean Corpuscular Hemoglobin 30, Mean Corpuscular Hemoglobin Concent 34, Red Cell Distribution Width 15.0H, Platelet Count 328, Mean Platelet Volume 9.9, Neutrophils (%) (Auto) 70, Lymphocytes (%) (Auto) 17, Monocytes (%) (Auto) 11, Eosinophils (%) (Auto) 1, Basophils (%) (Auto) 1, Neutrophils # (Auto) 7.8, Lymphocytes # (Auto) 1.9, Monocytes # (Auto) 1.3H, Eosinophils # (Auto) 0.1, Basophils # (Auto) 0.1, Prothrombin Time 13.9, INR Comment 1.0, Activated Partial Thromboplast Time 32, Sodium Level 135, Potassium Level 4.3, Chloride Level 103, Carbon Dioxide Level 20L, Anion Gap 12, Blood Urea Nitrogen 15, Creatinine 0.72, Estimat Glomerular Filtration Rate > 60, BUN/Creatinine Ratio 21, Glucose Level 92, Calcium Level 9.4, Corrected Calcium 9.6, Magnesium Level 2.3, Total Bilirubin 0.5, Aspartate Amino Transf (AST/SGOT) 23, Alanine Aminotransferase (ALT/SGPT) 15, Alkaline Phosphatase 50, Myoglobin 31.0, Troponin I < 0.028, Total Protein 7.3, Albumin 3.8 10/11/18 05:24: White Blood Count 10.6, Red Blood Count 4.57, Hemoglobin 13.3, Hematocrit 40, Mean Corpuscular Volume 88, Mean Corpuscular Hemoglobin 29, Mean Corpuscular Hemoglobin Concent 33, Red Cell Distribution Width 15.1H, Platelet Count 325, Mean Platelet Volume 10.0, Neutrophils (%) (Auto) 64, Lymphocytes (%) (Auto) 20, Monocytes (%) (Auto) 12, Eosinophils (%) (Auto) 4, Basophils (%) (Auto) 0, Neutrophils # (Auto) 6.7, Lymphocytes # (Auto) 2.1, Monocytes # (Auto) 1.3H, Eosinophils # (Auto) 0.4H, Basophils # (Auto) 0.0, Sodium Level 136, Potassium Level 3.9, Chloride Level 106, Carbon Dioxide Level 19L, Anion Gap 11, Blood Urea Nitrogen 10, Creatinine 0.67, Estimat Glomerular Filtration Rate > 60, BUN/Creatinine Ratio 15, Glucose Level 98, Calcium Level 9.2, Corrected Calcium 9.5, Total Bilirubin 0.7, Aspartate Amino Transf (AST/SGOT) 14, Alanine Aminotransferase (ALT/SGPT) 15, Alkaline Phosphatase 48, Total Protein 6.7, Albumin 3.6, Triglycerides Level 102, Cholesterol Level 179, LDL Cholesterol Direct 120, VLDL Cholesterol 20, HDL Cholesterol 42 ECG Impression ECG Initial ECG Rhythm: A Fib/Flutter Physical Exam Physical Exam Vital Signs Vital Signs - First Documented 10/10/18 13:48 Temp 97.7 Pulse 65 Resp 18 B/P (MAP) 122/77 (92) Pulse Ox 98 O2 Delivery Room Air Capillary Refill : Less Than 3 Seconds Height, Weight, BMI Height: 5'10.00" Weight: 247lbs. 0.0oz. 112.584309sd; 35.4 BMI Method:Stated General Appearance: No Apparent Distress, WD/WN HEENT: PERRL/EOMI, Normal ENT Inspection, Other (Oropharynx somewhat dry) Neck: Normal Inspection Respiratory: Lungs Clear, Normal Breath Sounds, No Accessory Muscle Use, No Respiratory Distress Cardiovascular: Regular Rate, Rhythm, No JVD, No Murmur, Other (+1 edema BLE) Gastrointestinal: Non Tender, Soft Rectal: Deferred Back: No CVA Tenderness Extremity: Other (Bilateral lower extremity edema with post surgical changes to the left leg. Incision is clean, dry, and intact) Neurologic/Psychiatric: Alert, Oriented x3, No Motor/Sensory Deficits, Normal Mood/Affect, electric switch tester II-XII Norm as Tested Skin: Normal Color, Warm/Dry, Ecchymosis (At surgical site) A/P-Cardiology Admission Diagnosis Generalized debility/weakness Atrial flutter s/p knee replacement HTN Assessment/Plan Generalized debility/weakness- patient reports was unable to take care of himself at home or do ADL's. Continue PT/OT. Dehydration- improved after IVF's. Continue to monitor. Atrial flutter with rapid ventricular response unknown duration, [place] done last week showed left atrial appendage thrombus. Continue on current medication and continue to monitor. Hypertension, restart home blood pressure medications and continue to monitor. Status post knee replacement surgery done today on October 06, 2018. By Dr. Johnson. Continue to monitor Obesity, BMI 35, we discussed weight loss and the risk of sleep apnea. Tobaccoism, educated on smoking cessation Clinical Quality Measures DVT/VTE Risk/Contraindication: Risk Factor Score Per Nursin RFS Level Per Nursing on Admit: 4+=Very High [place] SHI Oct 11, 2018 08:48 MONIK BRITO MD Oct 11, 2018 10:51
[2018-10-11] MEDS ORDERED: DILTIAZEM 240 MG (CARDIZEM CD) CAP PO SCH (09:00)
[2018-10-11] MEDS: oxyCODONE/APAP 5/325MG (PERCOCET 5) TABLET PO PRN (09:06)
--- NOTE | 2018-10-11 10:33 | Physical Therapy Evaluation ---
PT Evaluation-General Medical Diagnosis Admission Date Oct 10, 2018 at 16:40 Medical Diagnosis: post op pain/A-fib Onset Date: Oct 10, 2018 Therapy Diagnosis Therapy Diagnosis: debility Height/Weight Height (Feet): 5 Height (Inches): 10.00 Weight (Pounds): 247 Weight (Ounces): 0.0 Precautions Precautions/Isolations: Fall Prevention, Standard Precautions Weight Bear Status Right Lower Extremity: Right Full Weight Bearing Left Lower Extremity: Left Full Weight Bearing Referral Physician: Kathy Reason for Referral: Evaluation/Treatment Medical History Pertinent Medical History: Arthritis, HTN, OA Additional Medical History s/p left TKR 10/05/18 Current History ER secondary to unable to care for self Reviewed History: Yes Social History Home: 5th wheel Current Living Status: Alone Prior/Core FIM Prior Level of Function Therapy Code Descriptions/Definitions Functional [place] Measure: 0=Not Assessed/NA 4=Minimal Assistance 1=Total Assistance 5=Supervision or Setup 2=Maximal Assistance 6=Modified [place] 3=Moderate Assistance 7=Complete [place] Therapy Quality Codes: 6 Independent with activity with or without an assistive device 5 Patient requires set up or clean up by helper. Patient completes activity by themselves 4 Supervision or touching assist (CGA). [place] provide cues , steadying assist 3 The helper provides less than half the effort to complete the activity 2 The helper provides more than half the effort to complete the activity 1 Dependent. The helper does all the effort to complete an activity 7 Patient refused to complete or attempt activity 9 The patient did not perform the activity before the current illness or injury 88 Not attempted due to Medical conditions or safety concerns Functional Abilities and Goals: Independent: Patient completed the activities by him/herself, with or without an assistive device, with no assistance from a helper. Needed Some Help: Patient needed partial assistance from another person to complete activities. Dependent: A helper completed the activities for the patient. Unknown: Not Applicable: Bed Mobility: 6 Transfers (B,C,W/C) (FIM): 6 Gait: 6 Stairs: 2 Indoor Mobility (Ambulation): Independent Stairs: Independent Prior Devices Use: Walker, Other-see list below (and crutches) PT Evaluation-Current Subjective Patient reports he had anxiety at home with his new heart condition and became very fearful being alone. Pain Numeric Pain Scale: 3 Location: Left Location Body Site: Knee Pain Description: Ache, Acute Objective Patient Orientation: Normal For Age Problem Solving: Good ROM/Strength ROM Lower Extremities left knee flexion AROM 93 degrees, extension 5 degrees/right LE WFL Strength Lower Extremities 4+/5 grossly bilaterally Integumentary/Posture Integumentary refer to nursing notes Bowel Incontinence: No Bladder Incontinence: No Posture WFL Neuromuscular (Tone, Coordination, Reflexes) grossly intact Sensory Vision: Wears Glasses Hearing: Impaired Sensation Right Lower Extremit: Intact Sensation Left Lower Extremity: Intact Transfers Therapy Code Descriptions/Definitions Functional [place] Measure: 0=Not Assessed/NA 4=Minimal Assistance 1=Total Assistance 5=Supervision or Setup 2=Maximal Assistance 6=Modified [place] 3=Moderate Assistance 7=Complete [place] Transfers (B, C, W/C) (FIM): 6 Scootin Supine to/from Sit: 6 Sit to/from Stand: 6 Gait Mode of Locomotion: Walk Anticipated Mode of Locomotion: Walk Gait (FIM): 6 Distance (FIM): 3=150 ft Distance: >600' Gait Level of Assist: 6 Gait Assistive Device: FWW Comments/Gait Description safe and functional gait sequence with FWW use Stairs Stairs (FIM): 2 #of Steps: 4 Level of Assist: 5 Balance Sitting Static: Normal Sitting Dynamic: Normal Standing Static: Normal Standing Dynamic: Normal Assessment/Needs 58 y.o. male, will be seen short term by skilled PT to address functional mobility to improve current LOF. Patient is at a [facility] with all gross motor skills. PT discussed with patient and SW on POC with possible admit to SNF. Patient has been instructed to ambulate PRN in [facility]. RN notified. Rehab Potential: Fair Post Rehab Potential-Barriers: compliance PT Short Term Goals Short Term Goals Time Frame: Oct 15, 2018 Transfers (B,C,W/C) (FIM): 6 Gait (FIM): 6 Distance (FIM): 3=150 ft Gait Distance Comment: >800' Gait Level of Assist: 6 Gait Assistive Device: FWW PT Plan Treatment/Plan Treatment Plan: Continue Plan of Care Treatment Plan: Education, Gait, Safety, Therapeutic Exercise Treatment Duration: Oct 15, 2018 Frequency: 5 times per week Estimated Hrs Per Day: .25 hour per day Patient and/or Family Agrees t: Yes Discharge Recommendations Therapy D/C Recommendations: Fpc (TCU/NH) Time/GCodes Time In: 955 Time Out: 1005 Total Billed Treatment Time: 10 Total Billed Treatment 1 visit EVLowC 10 min VALERIE FERGUSON PT Oct 11, 2018 10:33
[2018-10-11] MEDS ORDERED: APIX5TAB PO (10:45)
[2018-10-11] MEDS ORDERED: OXYC-471 PO (10:45)
[2018-10-11] MEDS ORDERED: METO-333 PO (10:45)
[2018-10-11] MEDS ORDERED: DILT240C PO (10:47)
--- NOTE | 2018-10-11 10:47 | NUR ---
IRF Evaluation Order received to evaluate patient for the ARU. According to PT Eval, patient is ambulating (>600ft, FWW) and transferring with modified independence; therefore, the patient does not require intensive therapies, at this time. CM/SS notified. Thank you for this referral.
--- NOTE | 2018-10-11 10:47 | NUR ---
SPOKE WITH THE PATIENT ABOUT HIS MEDICATIONS. HE STATES HE DID START THE NEW MEDICATIONS THAT WERE ORDERED FOR HIM AT HIS LAST DISCHARGE, HE STOPPED THE LOWER DOSE OF DILTIAZEM WHEN THE 240MG WAS ORDERED. I UPDATED THE MED REC ACCORDINGLY.
[2018-10-11 12:00] VITALS: BP 146/79
--- NOTE | 2018-10-11 12:09 | Consultation-Cardiology ---
HPI-Cardiology Cardiology Consultation Date of Consultation 10/11/18 Date of Admission Time Seen by Provider: 08:44 Indication: Atrial flutter with RVR HPI Patient is a 58 y/o male with history of Atrial flutter. Was hospitalized last week, underwent total knee replacement, was found to be in atrial flutter with RVR. Underwent [place] last week revealing left atrial thrombus, rate was well controlled with medication, was placed on Eliquis. Patient was discharged home on 10/08/18, unfortunately, he reports he was unable to take care of himself once home and presented back to the ER. Patient was dehydrated upon admission. Heart rate improved with IVF's. Currently denies any chest pain or palpitations. Denies any dizziness or lightheadedness. Continues to complain of left knee pain. Home Medications & Allergies Allergies: Coded Allergies: No Known Drug Allergies (Unverified , 07/27/16) Home Medication List Reviewed: Yes AYA-Ievgrg-Quwctw Hx Patient Social History Marital Status: single Alcohol Use: Occasionally Uses Recreational Drug Use: Yes Drug of Choice: marajuana Type Used: Cigarettes 2nd Hand Smoke Exposure: Yes Recent Foreign Travel: No Recent Infectious Disease Expo: No Recent Hopitalizations: No Physical Abuse Screen: No Sexual Abuse: No Immunizations Up To Date Tetanus Booster (TDap): Unknown Past Medical History atrial flutter Family Medical History Significant Family History: No Pertinent Family Hx Family History: Colon cancer 19 FATHER Dementia 19 FATHER Diabetes mellitus 19 FATHER Hypertension 19 FATHER G8 BROTHER Thyroid disease G8 SISTER Review of Systems-General Review of Systems Constitutional: malaise, weakness EENTM: No ear discharge, No hearing loss, No ear pain, No blurred vision, No double vision, No vision loss, No epistaxis, No nose congestion, No nose pain Respiratory: no symptoms reported; No cough, No dyspnea on exertion Cardiovascular: see HPI; No edema, No palpitations, No syncope, No vascular heart diseas Gastrointestinal: no symptoms reported Genitourinary: no symptoms reported Musculoskeletal: joint pain (left knee), joint swelling, muscle pain Skin: no symptoms reported Psychiatric/Neurological: No Symptoms Reported Physical Exam Physical Exam Vital Signs Vital Signs - First Documented 10/10/18 13:48 Temp 97.7 Pulse 65 Resp 18 B/P (MAP) 122/77 (92) Pulse Ox 98 O2 Delivery Room Air Capillary Refill : Less Than 3 Seconds Height, Weight, BMI Height: 5'10.00" Weight: 247lbs. 0.0oz. [id number]; 35.4 BMI Method:Stated General Appearance: No Apparent Distress, WD/WN HEENT: PERRL/EOMI, Normal ENT Inspection, Other (Oropharynx somewhat dry) Neck: Normal Inspection Respiratory: Lungs Clear, Normal Breath Sounds, No Accessory Muscle Use, No Res piratory Distress Cardiovascular: Regular Rate, Rhythm, No JVD, No Murmur, Other (+1 edema BLE) Gastrointestinal: Non Tender, Soft Rectal: Deferred Back: No CVA Tenderness Extremity: Other (Bilateral lower extremity edema with post surgical changes to the left leg. Incision is clean, dry, and intact) Neurologic/Psychiatric: Alert, Oriented x3, No Motor/Sensory Deficits, Normal Mood/Affect, shallot packer II-XII Norm as Tested Skin: Normal Color, Warm/Dry, Ecchymosis (At surgical site) A/P-Cardiology Admission Diagnosis Generalized debility/weakness Atrial flutter s/p knee replacement HTN Assessment/Plan Generalized debility/weakness- patient reports was unable to take care of himself at home or do ADL's. Continue PT/OT. Dehydration- improved after IVF's. Continue to monitor. Atrial flutter with rapid ventricular response unknown duration, C[place] done last week showed left atrial appendage thrombus. Continue on current medication including Eliquis and Cardizem and continue to monitor heart rate Hypertension, restart home blood pressure medications and continue to monitor. Status post knee replacement surgery done today on October 06, 2018. By Dr. Johnson. Continue to monitor Obesity, BMI 35, we discussed weight loss and the risk of sleep apnea. Tobaccoism, educated on smoking cessation Clinical Quality Measures DVT/VTE Risk/Contraindication: Risk Factor Score Per Nursin RFS Level Per Nursing on Admit: 4+=Very High MONIK BRITO MD Oct 11, 2018 12:09
[2018-10-11 14:21] VITALS: BP 146/79
--- NOTE | 2018-10-11 14:36 | NUR ---
REPORT GIVEN TO MADELINE, NURSE WHO WILL ASSUME CARE OF THIS PATIENT WHEN HE ARRIVES TO [facility].
--- NOTE | 2018-10-11 14:42 | Occupational Therapy Eval ---
OT Evaluation-General/PLF Medical Diagnosis Admission Date Oct 10, 2018 at 16:40 Medical Diagnosis: post op pain/A-fib Onset Date: Oct 10, 2018 Therapy Diagnosis Therapy Diagnosis: Weakness Height/Weight Height (Feet): 5 Height (Inches): 10.00 Weight (Pounds): 247 Weight (Ounces): 0.0 Precautions Precautions/Isolations: Fall Prevention, Standard Precautions Weight Bear Status Weight Bearing Restriction: Weight Bearing/Tolerated Referral Physician: Kathy Referral Reason: Activity Tolerance, Self Care, Evaluation/Treatment, Strengthening/ROM Medical History Pertinent Medical History: Arthritis, HTN, OA Additional Medical History Abdominal surgery, left knee replacement. Current History Pt. underwent left knee replacement on 10-06-18. Was discharged home, and came back to ER on the due to "not feeling right." Pt. dehydrated and in a-fib at admission. Pt. reports that he lives in a 5th wheel trailer, and had difficulty maneuvering in his trailer due to his knee. This gave him anxiety, and along with being in a-fib, felt concerned. Pt. reports that he has limited space in his home, and has difficulty getting around or getting up into his bed. Reviewed History: Yes Social History Home: 5th wheel Current Living Status: Alone Entry Into Home: Stairs Without Railing Steps Into Home: 3 Steps Inside Home: 3 (3 to bed area.) ADL-Prior Level of Function Therapy Code Descriptions/Definitions Functional Dickinson Measure: 0=Not Assessed/NA 4=Minimal Assistance 1=Total Assistance 5=Supervision or Setup 2=Maximal Assistance 6=Modified Dickinson 3=Moderate Assistance 7=Complete Dickinson Therapy Quality Codes: 6 Independent with activity with or without an assistive device 5 Patient requires set up or clean up by helper. Patient completes activity by themselves 4 Supervision or touching assist (CGA). [place] provide cues , steadying assist 3 The helper provides less than half the effort to complete the activity 2 The helper provides more than half the effort to complete the activity 1 Dependent. The helper does all the effort to complete an activity 7 Patient refused to complete or attempt activity 9 The patient did not perform the activity before the current illness or injury 88 Not attempted due to Medical conditions or safety concerns Functional Abilities and Goals: Independent: Patient completed the activities by him/herself, with or without an assistive device, with no assistance from a helper. Needed Some Help: Patient needed partial assistance from another person to complete activities. Dependent: A helper completed the activities for the patient. Unknown: Not Applicable: ADL PLOF Comments Pt. was independent prior to original knee replacement. Self Care: Independent Functional Cognition: Independent DME/Equipment: Shower, Tub DME/Equipment Comments Pt. has a walker from knee replacement. OT Current Status Subjective Pt. does not report a pain level. Appearance Pt. in bed. Agrees to work with OT. Mental Status/Objective Patient Orientation: Person, Place, Time, Situation Attachments: IV Current Upper Extremity ROM WFL Upper Extremity Strength WFL ADL-Treatment Therapy Code Descriptions/Definitions Functional Dickinson Measure: 0=Not Assessed/NA 4=Minimal Assistance 1=Total Assistance 5=Supervision or Setup 2=Maximal Assistance 6=Modified Dickinson 3=Moderate Assistance 7=Complete Dickinson Therapy Quality Codes: 6 Independent with activity with or without an assistive device 5 Patient requires set up or clean up by helper. Patient completes activity by themselves 4 Supervision or touching assist (CGA). [place] provide cues , steadying assist 3 The helper provides less than half the effort to complete the activity 2 The helper provides more than half the effort to complete the activity 1 Dependent. The helper does all the effort to complete an activity 7 Patient refused to complete or attempt activity 9 The patient did not perform the activity before the current illness or injury 88 Not attempted due to Medical conditions or safety concerns Grooming (FIM): 6 (To brush hair.) Bathing (FIM): 6 Lower Body Dressing (FIM): 4 (Pt. able to doff bilateral socks and able to don right sock. Pt. able to doff shorts and underwear, and able to don pajama pants.) Transfers (B, C, W/C) (FIM): 6 Shower Transfer (FIM): 5 Other Treatments After shower, pt. ambulated back to bed. Transferred to bed with Mod I. All needs met. Education OT Patient Education: Correct positioning, Modified ADL techniques, Progress toward Goal/Update tx plan, Purpose of tx/functional activities, Reviewed precautions, Rehab process, Transfer techniques Teaching Recipient: Patient Teaching Methods: Demonstration, Discussion Response to Teaching: Verbalize Understanding, Return Demonstration OT Short Term Goals Short Term Goals Transfers (B,C,W/C) (FIM): 6 1=Demonstrate adherence to instructed precautions during ADL tasks. 2=Patient will verbalize/demonstrate understanding of assistive devices/modifications for ADL. 3=Patient will improve strength/tolerance for activity to enable patient to perform ADL's. OT Trip Motor Operator Goals Trip Motor Operator Goals Time Frame: Oct 11, 2018 Pt. discharging today to OR for skilled treatment to continue to gain strength before returning to current home. 1=Demonstrate adherence to instructed precautions during ADL tasks. 2=Patient will verbalize/demonstrate understanding of assistive devices/modifications for ADL. 3=Patient will improve strength/tolerance for activity to enable patient to perform ADL's. OT Education/Plan Problem List/Assessment Assessment: Decreased Activ Tolerance Discharge Recommendations Plan/Recommendations: Discontinue OT (Follow up at OR ) Treatment Plan/Plan of Care Treatment Duration: Oct 11, 2018 Frequency: 1 time per week Estimated Hrs Per Day: .5 hour per day Agreement: Yes Rehab Potential: Good Time/GCodes Start Time: 11:40 Stop Time: 12:25 Total Time Billed (hr/min): 45 Billed Treatment Time 1, EVL x 15minutes, ADL x 30minutes ДМИТРИЙ CORRALES OT Oct 11, 2018 14:41
--- NOTE | 2018-10-11 14:48 | NUR ---
CM/SS, responded to consult this a.m. for community [facility] short term placement. Patient was discharged to his preferred facility, [facility], for Medicare skilled care. Stay anticipated to be < 30 days, most likely 2-3 weeks. CARE Assessment not needed due to anticipated short stay. Faxed referral, then final orders. Patient stated he was not able to care for self in his travel trailer immediately after acute stay but does intend to return there when able. Patient's sister is Corazon Messina and she was here this a.m. with patient to discuss next steps. Unit RN updated of arrangements.
--- NOTE | 2018-10-11 17:44 | Short Stay Summary ---
History of Present Illness History of Present Illness Reason for visit/HPI 58 yo M with recent hospitalization for L total knee replacement and had episode of atrial flutter and was found to have a thrombus on [place]. Patient went home on Thursday and was unable to care for himself. States that he has been taking his blood thinner and not having any problems with new meds. Denies any chest pain or palpitations. He has not been able to get up and walk since discharge. Date of Admission Oct 10, 2018 at 16:40 Date of Discharge Oct 11, 2018 at 15:15 Time Seen by Provider: 10:30 Attending Physician Juana Chavez DO Admitting Physician [place] Consult Allergies and Home Medications Allergies Coded Allergies: No Known Drug Allergies (Unverified , 07/27/16) Home Medications Apixaban 5 Mg Tablet, 5 MG PO BID, (Reported) Diltiazem HCl 240 Mg Cap.er.24h, 240 MG PO DAILY, (Reported) Metoprolol Tartrate 25 Mg Tablet, 25 MG PO BID, (Reported) Oxycodone HCl/Acetaminophen 1 Each Tablet, 1 TAB PO Q4H PRN for PAIN-MODERATE, (Reported) Patient Home Medication List Home Medication List Reviewed: Yes Past Htdmkto-Yfiuoa-Uzzzwb Hx Patient Social History Marrital Status: single Living Status: alone Alcohol Use: Occasionally Uses Number of Drinks Today: AA Alcohol Beverage of Choice: Beer Recreational Drug Use: Yes Drug of Choice: marajuana Type Used: Cigarettes 2nd Hand Smoke Exposure: Yes Physical Abuse Screen: No Sexual Abuse: No Recent Foreign Travel: No Contact w/other who traveled: No Recent Hopitalizations: No Recent Infectious Disease Expo: No Immunizations Up To Date Tetanus Booster (TDap): Unknown Pediatric: Yes Seasonal Allergies Seasonal Allergies: No Surgeries Yes Abdominal, Adenoidectomy, Gallbladder, Joint Replacement (Left knee), Orthopedic, Tonsillectomy Respiratory No Cardiovascular Yes Atrial Fibrillation (Atrial flutter) Neurological No Reproductive System Hx Reproductive Disorders: No Sexually Transmitted Disease: Yes HIV/AIDS: No Genitourinary No Gastrointestinal Yes Gall Bladder Disease Musculoskeletal Yes (bilateral knee pain, knee replacement left knee) Arthritis Endocrine History of Endocrine Disorders: No HEENT History of HEENT Disorders: No Loss of Vision: Denies Hearing Impairment: Denies, Hard of Hearing Cancer No Psychosocial History of Psychiatric Problem: No Behavioral Health Disorders: Anxiety, Depression Integumentary History of Skin or Integumenta: No Blood Transfusions History of Blood Disorders: No Adverse Reaction to a Blood Tr: No Family Medical History Significant Family History: No Pertinent Family Hx Family Hx: Colon cancer 19 FATHER Dementia 19 FATHER Diabetes mellitus 19 FATHER Hypertension 19 FATHER G8 BROTHER Thyroid disease G8 SISTER Review of Systems Constitutional: No chills, No fever; weakness EENTM: no symptoms reported Respiratory: no symptoms reported; No cough, No dyspnea on exertion, No short of breath Cardiovascular: no symptoms reported; No chest pain, No palpitations Gastrointestinal: no symptoms reported; No abdominal pain, No constipation, No diarrhea, No nausea, No vomiting Genitourinary: no symptoms reported; No dysuria, No frequency, No hematuria Musculoskeletal: joint pain (Left knee) Skin: no symptoms reported Psychiatric/Neurological: No Symptoms Reported Physical Exam Vital Signs Vital Signs - First Documented 10/10/18 13:48 Temp 97.7 Pulse 65 Resp 18 B/P (MAP) 122/77 (92) Pulse Ox 98 O2 Delivery Room Air Capillary Refill : Less Than 3 Seconds Height, Weight, BMI Height: 5'10.00" Weight: 247lbs. 0.0oz. 112.464754gv; 35.4 BMI Method:Stated General Appearance: WD/WN HEENT: PERRL/EOMI Neck: Non Tender, Supple Respiratory: Chest Non Tender, No Respiratory Distress Cardiovascular: Regular Rate, Rhythm, No Murmur Gastrointestinal: Normal Bowel Sounds, Non Tender, Soft Back: No Vertebral Tenderness Extremity: Normal Capillary Refill, Normal Range of Motion, Non Tender, No Pedal Edema Neurologic/Psychiatric: Alert, Oriented x3, aerologist II-XII Norm as Tested, Motor Weakness Skin: Normal Color, Warm/Dry Lymphatic: No Adenopathy Clinical Quality Measures DVT/VTE Risk/Contraindication: Risk Factor Score Per Nursin RFS Level Per Nursing on Admit: 4+=Very High Short Stay Diagnosis Discharge Diagnosis-Short Stay Admission Diagnosis: Debility s/p L total knee replacement Atrial flutter with thrombus on [place] HTN Obesity Final Discharge Diagnosis: See Above Conclusion Labs Laboratory Tests 10/11/18 05:24: White Blood Count 10.6, Red Blood Count 4.57, Hemoglobin 13.3, Hematocrit 40, Mean Corpuscular Volume 88, Mean Corpuscular Hemoglobin 29, Mean Corpuscular Hemoglobin Concent 33, Red Cell Distribution Width 15.1H, Platelet Count 325, Mean Platelet Volume 10.0, Neutrophils (%) (Auto) 64, Lymphocytes (%) (Auto) 20, Monocytes (%) (Auto) 12, Eosinophils (%) (Auto) 4, Basophils (%) (Auto) 0, Neutrophils # (Auto) 6.7, Lymphocytes # (Auto) 2.1, Monocytes # (Auto) 1.3H, Eosinophils # (Auto) 0.4H, Basophils # (Auto) 0.0, Sodium Level 136, Potassium Level 3.9, Chloride Level 106, Carbon Dioxide Level 19L, Anion Gap 11, Blood Urea Nitrogen 10, Creatinine 0.67, Estimat Glomerular Filtration Rate > 60, BUN/Creatinine Ratio 15, Glucose Level 98, Calcium Level 9.2, Corrected Calcium 9.5, Total Bilirubin 0.7, Aspartate Amino Transf (AST/SGOT) 14, Alanine Aminotransferase (ALT/SGPT) 15, Alkaline Phosphatase 48, Total Protein 6.7, Albumin 3.6, Triglycerides Level 102, Cholesterol Level 179, LDL Cholesterol Direct 120, VLDL Cholesterol 20, HDL Cholesterol 42 Conclusion/Plan 58 yo M that recently had Left total knee that presented to ER unable to care for himself Debility: Patient was evaluated for IRF and did not qualify Atrial Flutter: Patient had [place] last hospitalization with evidence of thrombus. Continued on Eliquis during admission. HTN: Controlled Patient was discharged to SNF for PT and Nursing services CINDY SIDHU MD Oct 11, 2018 17:44
== END 2018-10-11 12:11 ==
LOC: EDUNIT# 13:26 → ER 13:28 → UNDOADMOB 16:40 → 4TH 16:40 → UNDODISOB 10-11 15:15
PROVIDERS: ADMIT Internal Medicine; ATTEND Internal Medicine
DX: E86.0 Dehydration (principal); R53.81 Other malaise; I51.3 Intracardiac thrombosis, not elsewhere classified; I48.92 Unspecified atrial flutter; I10 Essential (primary) hypertension; F41.9 Anxiety disorder, unspecified; F32.9 Major depressive disorder, single episode, unspecified; F17.210 Nicotine dependence, cigarettes, uncomplicated; E66.9 Obesity, unspecified; Z68.35 Body mass index [BMI] 35.0-35.9, adult; Z96.652 Presence of left artificial knee joint; Z79.01 Long term (current) use of anticoagulants; Z79.899 Other long term (current) drug therapy
CPT/HCPCS: 36415; 71045; 80053; 80061; 83735; 83874; 84484; 85025; 85610; 85730; 93005; 93041; 96360; G0378

== ENCOUNTER 2018-11-08 09:07 | Day surgery (SDC) | payer MEDICARE ==
[2018-11-08] VITALS (13 sets, daily range): BP systolic 101–133; BP diastolic 55–98
[~2018-11-08] VITALS: Ht 177.8 cm; Wt 110.2 kg
[~2018-11-08 09:07] MED LIST changes: +DILT240C PO; +OXYC-471 PO
[2018-11-08] MEDS ORDERED: NS IV 1000 ML 1,000 ML IV SCH (09:11)
[2018-11-08] MEDS ORDERED: HEParin (CATH LAB) 2,000 ML IV ONE (09:11)
[2018-11-08] MEDS ORDERED: LIDOCAINE 1% INJ 20 ML 20 ML VIAL ONE (09:11)
[2018-11-08] MEDS ORDERED: ISOPROTERENOL 0.2 MG/D5W 50 ML IV ONE (09:15)
[2018-11-08 09:41] LABS: HEMOGLOBIN 14.2 G/DL (13.3-17.7); MEAN PLATELET VOLUME 9.3 FL (7.4-10.4); WHITE BLOOD COUNT 8.5 10^3/uL (4.3-11.0)
--- OUTSIDE RECORDS SUMMARY | 2018-11-08 09:49 | XMS REPORT | Continuity of Care Document ---
Author Organization Unknown Address Unknown Allergies Active Description Code Type Severity Reaction Onset Reported/Identified Relationship to Patient Clinical Status Yes No Known Drug Allergies [id number] Drug Allergy Unknown N/A 07/27/2016 Medications There is no data. Problems Date Dx Coded Attending Type Code Diagnosis Diagnosed By 07/27/2016 MARTHA DEVI DO K Ot F11.10 OPIOID ABUSE, UNCOMPLICATED 07/27/2016 MARITO DO MARTHA K Ot F17.210 NICOTINE DEPENDENCE, CIGARETTES, UNCOMPL 07/27/2016 MARITO DO MARTHA K Ot K21.9 GASTRO-ESOPHAGEAL REFLUX DISEASE WITHOUT 07/27/2016 MARITO DO, MARTHA K Ot K44.9 DIAPHRAGMATIC HERNIA WITHOUT OBSTRUCTION 07/27/2016 MARITO DO MARTHA K Ot K52.9 NONINFECTIVE GASTROENTERITIS AND COLITIS 07/27/2016 MARITO DO, MARTHA K Ot K76.89 OTHER SPECIFIED DISEASES OF LIVER 07/27/2016 MARITO DO MARTHA K Ot K92.1 MELENA 08/02/2016 MARITO DO MARTHA K Ot F11.10 OPIOID ABUSE, UNCOMPLICATED 08/02/2016 MARITO DO, MARTHA K Ot F17.210 NICOTINE DEPENDENCE, CIGARETTES, UNCOMPL 08/02/2016 MARITO DO MARTHA K Ot K21.9 GASTRO-ESOPHAGEAL REFLUX DISEASE WITHOUT 08/02/2016 MARITO DO, MARTHA K Ot K44.9 DIAPHRAGMATIC HERNIA WITHOUT OBSTRUCTION 08/02/2016 MARITO DO, MARTHA K Ot K52.9 NONINFECTIVE GASTROENTERITIS AND COLITIS 08/02/2016 MARITO DO MARTHA K Ot K76.89 OTHER SPECIFIED DISEASES OF LIVER 08/02/2016 MARITO DO MARTHA K Ot K92.1 MELENA 10/04/2018 JOSELYN BAKER, DAVID Jerez Ot Z01.812 ENCOUNTER FOR PREPROCEDURAL LABORATORY E 10/08/2018 DARYL BAKER, MONIK Dennison Ot B19.20 UNSPECIFIED VIRAL HEPATITIS C WITHOUT HE 10/08/2018 MONIK BRITO MD Ot E66.9 OBESITY, UNSPECIFIED 10/08/2018 MONIK BRITO MD Ot E78.5 HYPERLIPIDEMIA, UNSPECIFIED 10/08/2018 MONIK BRITO MD Ot F17.210 NICOTINE DEPENDENCE, CIGARETTES, UNCOMPL 10/08/2018 MONIK BRITO MD Ot H91.90 UNSPECIFIED HEARING LOSS, UNSPECIFIED EA 10/08/2018 MONIK BRITO MD Ot I10 ESSENTIAL (PRIMARY) HYPERTENSION 10/08/2018 MONIK BRITO MD Ot I48.91 UNSPECIFIED ATRIAL FIBRILLATION 10/08/2018 MONIK BRITO MD Ot I48.92 UNSPECIFIED ATRIAL FLUTTER 10/08/2018 MONIK BRITO MD Ot M17.0 BILATERAL PRIMARY OSTEOARTHRITIS OF KNEE 10/08/2018 MONIK BRITO MD Ot R00.0 TACHYCARDIA, UNSPECIFIED 10/08/2018 MONIK BRITO MD Ot Z68.35 BODY MASS INDEX (BMI) 35.0-35.9, ADULT 10/08/2018 DAVID ALVES MD Ot M17.12 UNILATERAL PRIMARY OSTEOARTHRITIS, LEFT 10/08/2018 DAVID ALVES MD Ot R53.83 OTHER FATIGUE 10/08/2018 DAVID ALVES MD Ot Z01.810 ENCOUNTER FOR PREPROCEDURAL CARDIOVASCUL 10/08/2018 DAVID ALVES MD Ot Z01.811 ENCOUNTER FOR PREPROCEDURAL RESPIRATORY 10/08/2018 DAVID ALVES MD Ot Z01.812 ENCOUNTER FOR PREPROCEDURAL LABORATORY E 10/08/2018 DAVID ALVES MD Ot Z11.2 ENCOUNTER FOR SCREENING FOR OTHER BACTER 10/08/2018 MONIK BRITO MD Ot B19.20 UNSPECIFIED VIRAL HEPATITIS C WITHOUT HE 10/08/2018 MONIK BRITO MD Ot E66.9 OBESITY, UNSPECIFIED 10/08/2018 MONIK BRITO MD Ot E78.5 HYPERLIPIDEMIA, UNSPECIFIED 10/08/2018 MONIK BRITO MD Ot F17.210 NICOTINE DEPENDENCE, CIGARETTES, UNCOMPL 10/08/2018 MONIK BRITO MD Ot H91.90 UNSPECIFIED HEARING LOSS, UNSPECIFIED EA 10/08/2018 MONIK BRITO MD Ot I10 ESSENTIAL (PRIMARY) HYPERTENSION 10/08/2018 DARYL BAKER, MONIK Dennison Ot I48.91 UNSPECIFIED ATRIAL FIBRILLATION 10/08/2018 MONIK BRITO MD Ot I48.92 UNSPECIFIED ATRIAL FLUTTER 10/08/2018 MONIK BRITO MD Ot I51.3 INTRACARDIAC THROMBOSIS, NOT ELSEWHERE C 10/08/2018 MONIK BRITO MD Ot M17.0 BILATERAL PRIMARY OSTEOARTHRITIS OF KNEE 10/08/2018 MONIK BRITO MD Ot R00.0 TACHYCARDIA, UNSPECIFIED 10/08/2018 MONIK BRITO MD Ot R53.83 OTHER FATIGUE 10/08/2018 MONIK BRITO MD Ot Z68.35 BODY MASS INDEX (BMI) 35.0-35.9, ADULT 10/10/2018 DAVID ALVES MD Ot M17.12 UNILATERAL PRIMARY OSTEOARTHRITIS, LEFT 10/10/2018 DAVID ALVES MD Ot R53.83 OTHER FATIGUE 10/10/2018 DAVID ALVES MD Ot Z01.810 ENCOUNTER FOR PREPROCEDURAL CARDIOVASCUL 10/10/2018 DAVID ALVES MD Ot Z01.811 ENCOUNTER FOR PREPROCEDURAL RESPIRATORY 10/10/2018 DAVID ALVSE MD Ot Z01.812 ENCOUNTER FOR PREPROCEDURAL LABORATORY E 10/10/2018 JOSELYN BAKER, DAVID Jerez Ot Z11.2 ENCOUNTER FOR SCREENING FOR OTHER BACTER 10/11/2018 MANUEL NESBITT DOI Ot E66.9 OBESITY, UNSPECIFIED 10/11/2018 MANUEL NESBITT DOI Ot E86.0 DEHYDRATION 10/11/2018 MANUEL NESBITT DOI Ot F17.210 NICOTINE DEPENDENCE, CIGARETTES, UNCOMPL 10/11/2018 LAZ ZAPATA PATTIE Ot F32.9 MAJOR DEPRESSIVE DISORDER, SINGLE EPISOD 10/11/2018 LAZ ZAPATA PATTIE Ot F41.9 ANXIETY DISORDER, UNSPECIFIED 10/11/2018 MANUEL NESBITT DOI Ot I10 ESSENTIAL (PRIMARY) HYPERTENSION 10/11/2018 MANUEL NESBITT DOI Ot I48.92 UNSPECIFIED ATRIAL FLUTTER 10/11/2018 MANUEL NESBITT DOI Ot I51.3 INTRACARDIAC THROMBOSIS, NOT ELSEWHERE C 10/11/2018 MANUEL NESBITT DOI Ot R53.81 OTHER MALAISE 10/11/2018 PATTIE NESBITT DO Ot Z68.35 BODY MASS INDEX (BMI) 35.0-35.9, ADULT 10/11/2018 PATTIE NESBITT DO Ot Z79.01 RETIREMENT (CURRENT) USE OF ANTICOAGULANT 10/11/2018 PATTIE NESBITT DO Ot Z79.899 OTHER RETIREMENT (CURRENT) DRUG THERAPY 10/11/2018 PATTIE NESBITT DO Ot Z96.652 PRESENCE OF LEFT ARTIFICIAL KNEE JOINT Procedures Code Description Performed By Performed On [id number] REPLACE OF L KNEE JT WITH SYNTH SUB, KATIE 10/06/2018 Results Test Result Range Complete blood count (CBC) with automated white blood cell (WBC) differential - 07/27/16 11:35 Blood leukocytes automated count (number/volume) 12.1 10*3/uL 4.3-11.0 Blood erythrocytes automated count (number/volume) 4.97 10*6/uL 4.35-5.85 Venous blood hemoglobin measurement (mass/volume) 14.8 g/dL 13.3-17.7 Blood hematocrit (volume fraction) 42 % 40-54 Automated erythrocyte mean corpuscular volume 85 [foz_us] 80-99 Automated erythrocyte mean corpuscular hemoglobin (mass per erythrocyte) 30 pg 25-34 Automated erythrocyte mean corpuscular hemoglobin concentration measurement (mass/volume) 35 g/dL 32-36 Automated erythrocyte distribution width ratio 14.4 % 10.0- 14.5 Automated blood platelet count (count/volume) 299 10*3/uL 130-400 Automated blood platelet mean volume measurement 9.8 [foz_us] 7.4-10.4 Automated blood neutrophils/100 leukocytes 82 % 42-75 Automated blood lymphocytes/100 leukocytes 10 % 12-44 Blood monocytes/100 leukocytes 8 % 0-12 Automated blood eosinophils/100 leukocytes 0 % 0-10 Automated blood basophils/100 leukocytes 0 % 0-10 Blood neutrophils automated count (number/volume) 9.9 10*3 1.8-7.8 Blood lymphocytes automated count (number/volume) 1.2 10*3 1.0-4.0 Blood monocytes automated count (number/volume) 0.9 10*3 0.0- 1.0 Automated eosinophil count 0.0 10*3/uL 0.0-0.3 Automated blood basophil count (count/volume) 0.0 10*3/uL 0.0-0.1 PT panel in platelet poor plasma by coagulation assay - 07/27/16 11:35 Prothrombin time (PT) in platelet poor plasma by coagulation assay 12.8 s 12.2-14.7 INR in platelet poor plasma or blood by coagulation assay 1.0 0.8-1.4 Activated partial thromboplastin time (aPTT) in platelet poor plasma bycoagulation assay - 07/27/16 11:35 Activated partial thromboplastin time (aPTT) in platelet poor plasma bycoagulation assay 27 s 24-35 Comprehensive metabolic panel - 07/27/16 11:35 Serum or plasma sodium measurement (moles/volume) 136 mmol/L 135-145 Serum or plasma potassium measurement (moles/volume) 3.2 mmol/L 3.6-5.0 Serum or plasma chloride measurement (moles/volume) 103 mmol/L 98-107 Carbon dioxide 23 mmol/L 21-32 Serum or plasma anion gap determination (moles/volume) 10 mmol/L 5-14 Serum or plasma urea nitrogen measurement (mass/volume) 23 mg/dL 7-18 Serum or plasma creatinine measurement (mass/volume) 0.75 mg/dL 0.60-1.30 Serum or plasma urea nitrogen/creatinine mass ratio 31 NRG Serum or plasma creatinine measurement with calculation of estimated glomerular filtration rate > NRG Serum or plasma glucose measurement (mass/volume) 131 mg/dL 70-105 Serum or plasma calcium measurement (mass/volume) 8.8 mg/dL 8.5-10.1 Serum or plasma total bilirubin measurement (mass/volume) 0.7 mg/dL 0.1-1.0 Serum or plasma alkaline phosphatase measurement (enzymatic activity/volume) 58 U/L 40-136 Serum or plasma aspartate aminotransferase measurement (enzymatic activity/volume) 25 U/L 5-34 Serum or plasma alanine aminotransferase measurement (enzymatic activity/volume) 39 U/L 0-55 Serum or plasma protein measurement (mass/volume) 6.5 g/dL 6.4-8.2 Serum or plasma albumin measurement (mass/volume) 3.9 g/dL 3.2-4.5 Magnesium - 07/27/16 11:35 Magnesium 2.0 mg/dL 1.8-2.4 Serum or plasma amylase measurement (enzymatic activity/volume) - 07/27/16 11:35 Serum or plasma amylase measurement (enzymatic activity/volume) 15 U/L 25-125 Lipase - 07/27/16 11:35 Lipase 8 U/L 8-78 Serum or plasma ethanol measurement (mass/volume) - 07/27/16 11:35 Serum or plasma ethanol measurement (mass/volume) < mg/dL <10 Complete urinalysis with reflex to culture - 07/27/16 13:07 Urine color determination YELLOW NRG Urine clarity determination CLEAR NRG Urine pH measurement by test strip 7 5-9 Specific gravity of urine by test strip 1.010 1.016-1.022 Urine protein assay by test strip, semi-quantitative 1+ NEGATIVE Urine glucose detection by automated test strip NEGATIVE NEGATIVE Erythrocytes detection in urine sediment by light microscopy NEGATIVE NEGATIVE Urine ketones detection by automated test strip 1+ NEGATIVE Urine nitrite detection by test strip NEGATIVE NEGATIVE Urine total bilirubin detection by test strip NEGATIVE NEGATIVE Urine urobilinogen measurement by automated test strip (mass/volume) NORMAL NORMAL Urine leukocyte esterase detection by dipstick NEGATIVE NEGATIVE Automated urine sediment erythrocyte count by microscopy (number/high power field) NONE NRG Automated urine sediment leukocyte count by microscopy (number/high power field) NONE NRG Bacteria detection in urine sediment by light microscopy NEGATIVE NRG Crystals detection in urine sediment by light microscopy NONE NRG Casts detection in urine sediment by light microscopy NONE NRG Mucus detection in urine sediment by light microscopy NEGATIVE NRG Complete urinalysis with reflex to culture NO NRG Urine drug screening test - 07/27/16 13:07 Urine phencyclidine detection by screening method NEGATIVE NEGATIVE Urine benzodiazepines detection by screening method NEGATIVE NEGATIVE Urine cocaine detection NEGATIVE NEGATIVE Urine amphetamines detection by screening method NEGATIVE NEGATIVE Urine methamphetamine detection by screening method NEGATIVE NEGATIVE Urine cannabinoids detection by screening method POSITIVE NEGATIVE Urine opiates detection by screening method POSITIVE NEGATIVE Urine barbiturates detection NEGATIVE NEGATIVE Screening urine tricyclic antidepressants detection NEGATIVE NEGATIVE Urine methadone detection by screening method NEGATIVE NEGATIVE Urine oxycodone detection NEGATIVE NEGATIVE Urine propoxyphene detection NEGATIVE NEGATIVE Methicillin resistant Staphylococcus aureus (MRSA) screening culture - 10/04/18 10:20 Methicillin resistant Staphylococcus aureus (MRSA) screening culture NEG NRG Complete blood count (CBC) with automated white blood cell (WBC) differential - 10/04/18 10:25 Blood leukocytes automated count (number/volume) 8.9 10*3/uL 4.3-11.0 Blood erythrocytes automated count (number/volume) 5.34 10*6/uL 4.35-5.85 Venous blood hemoglobin measurement (mass/volume) 15.8 g/dL 13.3-17.7 Blood hematocrit (volume fraction) 47 % 40-54 Automated erythrocyte mean corpuscular volume 87 [foz_us] 80-99 Automated erythrocyte mean corpuscular hemoglobin (mass per erythrocyte) 30 pg 25-34 Automated erythrocyte mean corpuscular hemoglobin concentration measurement (mass/volume) 34 g/dL 32-36 Automated erythrocyte distribution width ratio 14.9 % 10.0- 14.5 Automated blood platelet count (count/volume) 282 10*3/uL 130-400 Automated blood platelet mean volume measurement 9.6 [foz_us] 7.4-10.4 Automated blood neutrophils/100 leukocytes 66 % 42-75 Automated blood lymphocytes/100 leukocytes 22 % 12-44 Blood monocytes/100 leukocytes 8 % 0-12 Automated blood eosinophils/100 leukocytes 4 % 0-10 Automated blood basophils/100 leukocytes 1 % 0-10 Blood neutrophils automated count (number/volume) 5.9 10*3 1.8-7.8 Blood lymphocytes automated count (number/volume) 1.9 10*3 1.0-4.0 Blood monocytes automated count (number/volume) 0.7 10*3 0.0- 1.0 Automated eosinophil count 0.3 10*3/uL 0.0-0.3 Automated blood basophil count (count/volume) 0.1 10*3/uL 0.0-0.1 Complete urinalysis with reflex to culture - 10/04/18 10:25 Urine color determination YELLOW NRG Urine clarity determination CLEAR NRG Urine pH measurement by test strip 5 5-9 Specific gravity of urine by test strip 1.020 1.016-1.022 Urine protein assay by test strip, semi-quantitative NEGATIVE NEGATIVE Urine glucose detection by automated test strip NEGATIVE NEGATIVE Erythrocytes detection in urine sediment by light microscopy NEGATIVE NEGATIVE Urine ketones detection by automated test strip NEGATIVE NEGATIVE Urine nitrite detection by test strip NEGATIVE NEGATIVE Urine total bilirubin detection by test strip NEGATIVE NEGATIVE Urine urobilinogen measurement by automated test strip (mass/volume) NORMAL NORMAL Urine leukocyte esterase detection by dipstick 1+ NEGATIVE Automated urine sediment erythrocyte count by microscopy (number/high power field) NONE NRG Automated urine sediment leukocyte count by microscopy (number/high power field) RARE NRG Bacteria detection in urine sediment by light microscopy NEGATIVE NRG Squamous epithelial cells detection in urine sediment by light microscopy NONE NRG Crystals detection in urine sediment by light microscopy NONE NRG Casts detection in urine sediment by light microscopy NONE NRG Mucus detection in urine sediment by light microscopy NEGATIVE NRG Complete urinalysis with reflex to culture NO NRG PT panel in platelet poor plasma by coagulation assay - 10/04/18 10:25 Prothrombin time (PT) in platelet poor plasma by coagulation assay 12.6 s 12.2-14.7 INR in platelet poor plasma or blood by coagulation assay 0.9 0.8-1.4 Comprehensive metabolic panel - 10/04/18 10:25 Serum or plasma sodium measurement (moles/volume) 136 mmol/L 135-145 Serum or plasma potassium measurement (moles/volume) 4.1 mmol/L 3.6-5.0 Serum or plasma chloride measurement (moles/volume) 108 mmol/L 98-107 Carbon dioxide 19 mmol/L 21-32 Serum or plasma anion gap determination (moles/volume) 9 mmol/L 5-14 Serum or plasma urea nitrogen measurement (mass/volume) 15 mg/dL 7-18 Serum or plasma creatinine measurement (mass/volume) 0.77 mg/dL 0.60-1.30 Serum or plasma urea nitrogen/creatinine mass ratio 19 NRG Serum or plasma creatinine measurement with calculation of estimated glomerular filtration rate > NRG Serum or plasma glucose measurement (mass/volume) 98 mg/dL 70-105 Serum or plasma calcium measurement (mass/volume) 9.2 mg/dL 8.5-10.1 Serum or plasma total bilirubin measurement (mass/volume) 0.4 mg/dL 0.1-1.0 Serum or plasma alkaline phosphatase measurement (enzymatic activity/volume) 54 U/L 40-136 Serum or plasma aspartate aminotransferase measurement (enzymatic activity/volume) 13 U/L 5-34 Serum or plasma alanine aminotransferase measurement (enzymatic activity/volume) 12 U/L 0-55 Serum or plasma protein measurement (mass/volume) 7.2 g/dL 6.4-8.2 Serum or plasma albumin measurement (mass/volume) 4.1 g/dL 3.2-4.5 CALCIUM CORRECTED 9.1 mg/dL 8.5-10.1 Erythrocyte sedimentation rate by westergren method - 10/04/18 10:25 Erythrocyte sedimentation rate by westergren method 6 mm 0- 30 Blood type T Indirect antibody screen panel - 10/04/18 10:25 ABO+Rh group AP NRG Blood group antibody screen NEGATIVE NRG Automated blood complete blood count (hemogram) panel - 10/05/18 08:40 Blood leukocytes automated count (number/volume) 8.1 10*3/uL 4.3-11.0 Blood erythrocytes automated count (number/volume) 5.22 10*6/uL 4.35-5.85 Venous blood hemoglobin measurement (mass/volume) 15.6 g/dL 13.3-17.7 Blood hematocrit (volume fraction) 47 % 40-54 Automated erythrocyte mean corpuscular volume 89 [foz_us] 80-99 Automated erythrocyte mean corpuscular hemoglobin (mass per erythrocyte) 30 pg 25-34 Automated erythrocyte mean corpuscular hemoglobin concentration measurement (mass/volume) 34 g/dL 32-36 Automated erythrocyte distribution width ratio 15.5 % 10.0- 14.5 Automated blood platelet count (count/volume) 291 10*3/uL 130-400 Automated blood platelet mean volume measurement 9.4 [foz_us] 7.4-10.4 PT panel in platelet poor plasma by coagulation assay - 10/05/18 08:40 Prothrombin time (PT) in platelet poor plasma by coagulation assay 12.9 s 12.2-14.7 INR in platelet poor plasma or blood by coagulation assay 0.9 0.8-1.4 Activated partial thromboplastin time (aPTT) in platelet poor plasma bycoagulation assay - 10/05/18 08:40 Activated partial thromboplastin time (aPTT) in platelet poor plasma bycoagulation assay 33 s 24-35 Comprehensive metabolic panel - 10/05/18 08:40 Serum or plasma sodium measurement (moles/volume) 138 mmol/L 135-145 Serum or plasma potassium measurement (moles/volume) 4.2 mmol/L 3.6-5.0 Serum or plasma chloride measurement (moles/volume) 104 mmol/L 98-107 Carbon dioxide 23 mmol/L 21-32 Serum or plasma anion gap determination (moles/volume) 11 mmol/L 5-14 Serum or plasma urea nitrogen measurement (mass/volume) 17 mg/dL 7-18 Serum or plasma creatinine measurement (mass/volume) 0.81 mg/dL 0.60-1.30 Serum or plasma urea nitrogen/creatinine mass ratio 21 NRG Serum or plasma creatinine measurement with calculation of estimated glomerular filtration rate > NRG Serum or plasma glucose measurement (mass/volume) 97 mg/dL 70-105 Serum or plasma calcium measurement (mass/volume) 9.7 mg/dL 8.5-10.1 Serum or plasma total bilirubin measurement (mass/volume) 0.4 mg/dL 0.1-1.0 Serum or plasma alkaline phosphatase measurement (enzymatic activity/volume) 61 U/L 40-136 Serum or plasma aspartate aminotransferase measurement (enzymatic activity/volume) 12 U/L 5-34 Serum or plasma alanine aminotransferase measurement (enzymatic activity/volume) 13 U/L 0-55 Serum or plasma protein measurement (mass/volume) 7.5 g/dL 6.4-8.2 Serum or plasma albumin measurement (mass/volume) 4.4 g/dL 3.2-4.5 CALCIUM CORRECTED 9.4 mg/dL 8.5-10.1 THYROID STIMULATING HORMONE - 10/05/18 08:40 THYROID STIMULATING HORMONE 2.56 u[iU]/mL 0.35-4.94 Methicillin resistant Staphylococcus aureus (MRSA) screening culture - 10/05/18 09:00 Methicillin resistant Staphylococcus aureus (MRSA) screening culture NEG NRG Activated partial thromboplastin time (aPTT) in platelet poor plasma bycoagulation assay - 10/05/18 18:30 Activated partial thromboplastin time (aPTT) in platelet poor plasma bycoagulation assay 85 s 24-35 Activated partial thromboplastin time (aPTT) in platelet poor plasma bycoagulation assay - 10/06/18 00:35 Activated partial thromboplastin time (aPTT) in platelet poor plasma bycoagulation assay > s 24-35 Complete blood count (CBC) with automated white blood cell (WBC) differential - 10/06/18 04:45 Blood leukocytes automated count (number/volume) 7.4 10*3/uL 4.3-11.0 Blood erythrocytes automated count (number/volume) 4.73 10*6/uL 4.35-5.85 Venous blood hemoglobin measurement (mass/volume) 14.0 g/dL 13.3-17.7 Blood hematocrit (volume fraction) 42 % 40-54 Automated erythrocyte mean corpuscular volume 89 [foz_us] 80-99 Automated erythrocyte mean corpuscular hemoglobin (mass per erythrocyte) 30 pg 25-34 Automated erythrocyte mean corpuscular hemoglobin concentration measurement (mass/volume) 33 g/dL 32-36 Automated erythrocyte distribution width ratio 15.0 % 10.0- 14.5 Automated blood platelet count (count/volume) 260 10*3/uL 130-400 Automated blood platelet mean volume measurement 9.7 [foz_us] 7.4-10.4 Automated blood neutrophils/100 leukocytes 58 % 42-75 Automated blood lymphocytes/100 leukocytes 29 % 12-44 Blood monocytes/100 leukocytes 7 % 0-12 Automated blood eosinophils/100 leukocytes 5 % 0-10 Automated blood basophils/100 leukocytes 1 % 0-10 Blood neutrophils automated count (number/volume) 4.3 10*3 1.8-7.8 Blood lymphocytes automated count (number/volume) 2.2 10*3 1.0-4.0 Blood monocytes automated count (number/volume) 0.6 10*3 0.0- 1.0 Automated eosinophil count 0.4 10*3/uL 0.0-0.3 Automated blood basophil count (count/volume) 0.0 10*3/uL 0.0-0.1 Whole blood basic metabolic panel - 10/06/18 04:45 Serum or plasma sodium measurement (moles/volume) 138 mmol/L 135-145 Serum or plasma potassium measurement (moles/volume) 4.1 mmol/L 3.6-5.0 Serum or plasma chloride measurement (moles/volume) 108 mmol/L 98-107 Carbon dioxide 21 mmol/L 21-32 Serum or plasma anion gap determination (moles/volume) 9 mmol/L 5-14 Serum or plasma urea nitrogen measurement (mass/volume) 9 mg/dL 7-18 Serum or plasma creatinine measurement (mass/volume) 0.71 mg/dL 0.60-1.30 Serum or plasma urea nitrogen/creatinine mass ratio 13 NRG Serum or plasma creatinine measurement with calculation of estimated glomerular filtration rate > NRG Serum or plasma glucose measurement (mass/volume) 93 mg/dL 70-105 Serum or plasma calcium measurement (mass/volume) 8.5 mg/dL 8.5-10.1 Serum or plasma phosphate measurement (mass/volume) - 10/06/18 04:45 Serum or plasma phosphate measurement (mass/volume) 2.5 mg/dL 2.3-4.7 Magnesium - 10/06/18 04:45 Magnesium 2.0 mg/dL 1.8-2.4 PT panel in platelet poor plasma by coagulation assay - 10/06/18 07:07 Prothrombin time (PT) in platelet poor plasma by coagulation assay 12.9 s 12.2-14.7 INR in platelet poor plasma or blood by coagulation assay 0.9 0.8-1.4 Complete blood count (CBC) with automated white blood cell (WBC) differential - 10/07/18 07:35 Blood leukocytes automated count (number/volume) 18.0 10*3/uL 4.3-11.0 Blood erythrocytes automated count (number/volume) 4.29 10*6/uL 4.35-5.85 Venous blood hemoglobin measurement (mass/volume) 12.7 g/dL 13.3-17.7 Blood hematocrit (volume fraction) 38 % 40-54 Automated erythrocyte mean corpuscular volume 89 [foz_us] 80-99 Automated erythrocyte mean corpuscular hemoglobin (mass per erythrocyte) 30 pg 25-34 Automated erythrocyte mean corpuscular hemoglobin concentration measurement (mass/volume) 33 g/dL 32-36 Automated erythrocyte distribution width ratio 15.2 % 10.0- 14.5 Automated blood platelet count (count/volume) 252 10*3/uL 130-400 Automated blood platelet mean volume measurement 9.6 [foz_us] 7.4-10.4 Automated blood neutrophils/100 leukocytes 89 % 42-75 Automated blood lymphocytes/100 leukocytes 5 % 12-44 Blood monocytes/100 leukocytes 7 % 0-12 Automated blood eosinophils/100 leukocytes 0 % 0-10 Automated blood basophils/100 leukocytes 0 % 0-10 Blood neutrophils automated count (number/volume) 15.9 10*3 1.8-7.8 Blood lymphocytes automated count (number/volume) 0.8 10*3 1.0-4.0 Blood monocytes automated count (number/volume) 1.2 10*3 0.0- 1.0 Automated eosinophil count 0.0 10*3/uL 0.0-0.3 Automated blood basophil count (count/volume) 0.0 10*3/uL 0.0-0.1 Comprehensive metabolic panel - 10/07/18 07:35 Serum or plasma sodium measurement (moles/volume) 136 mmol/L 135-145 Serum or plasma potassium measurement (moles/volume) 4.3 mmol/L 3.6-5.0 Serum or plasma chloride measurement (moles/volume) 107 mmol/L 98-107 Carbon dioxide 20 mmol/L 21-32 Serum or plasma anion gap determination (moles/volume) 9 mmol/L 5-14 Serum or plasma urea nitrogen measurement (mass/volume) 7 mg/dL 7-18 Serum or plasma creatinine measurement (mass/volume) 0.67 mg/dL 0.60-1.30 Serum or plasma urea nitrogen/creatinine mass ratio 10 NRG Serum or plasma creatinine measurement with calculation of estimated glomerular filtration rate > NRG Serum or plasma glucose measurement (mass/volume) 144 mg/dL 70-105 Serum or plasma calcium measurement (mass/volume) 8.7 mg/dL 8.5-10.1 Serum or plasma total bilirubin measurement (mass/volume) 0.3 mg/dL 0.1-1.0 Serum or plasma alkaline phosphatase measurement (enzymatic activity/volume) 53 U/L 40-136 Serum or plasma aspartate aminotransferase measurement (enzymatic activity/volume) 11 U/L 5-34 Serum or plasma alanine aminotransferase measurement (enzymatic activity/volume) 16 U/L 0-55 Serum or plasma protein measurement (mass/volume) 6.4 g/dL 6.4-8.2 Serum or plasma albumin measurement (mass/volume) 3.6 g/dL 3.2-4.5 CALCIUM CORRECTED 9.0 mg/dL 8.5-10.1 Serum or plasma phosphate measurement (mass/volume) - 10/07/18 07:35 Serum or plasma phosphate measurement (mass/volume) 2.1 mg/dL 2.3-4.7 Magnesium - 10/07/18 07:35 Magnesium 2.0 mg/dL 1.8-2.4 Lipid 1996 panel - 10/07/18 07:35 Serum or plasma triglyceride measurement (mass/volume) 83 mg/dL <150 Serum or plasma cholesterol measurement (mass/volume) 188 mg/dL < 200 Serum or plasma cholesterol in HDL measurement (mass/volume) 39 mg/dL 40-60 Cholesterol in LDL [mass/volume] in serum or plasma by direct assay 141 mg/dL 1-129 Serum or plasma cholesterol in VLDL measurement (mass/volume) 17 mg/dL 5-40 Manual absolute plasma cell count - 10/07/18 07:35 Blood monocytes/100 leukocytes 10 % NRG Manual blood segmented neutrophils/100 leukocytes 86 % NRG Blood band neutrophils/100 leukocytes 1 % NRG Manual blood lymphocytes/100 leukocytes 3 % NRG Manual eosinophils/100 leukocytes in nose 0 % NRG Manual blood basophils/100 leukocytes 0 % NRG Blood anisocytosis detection by light microscopy SLIGHT NRG Complete blood count (CBC) with automated white blood cell (WBC) differential - 10/08/18 05:12 Blood leukocytes automated count (number/volume) 10.7 10*3/uL 4.3-11.0 Blood erythrocytes automated count (number/volume) 4.04 10*6/uL 4.35-5.85 Venous blood hemoglobin measurement (mass/volume) 12.1 g/dL 13.3-17.7 Blood hematocrit (volume fraction) 37 % 40-54 Automated erythrocyte mean corpuscular volume 90 [foz_us] 80-99 Automated erythrocyte mean corpuscular hemoglobin (mass per erythrocyte) 30 pg 25-34 Automated erythrocyte mean corpuscular hemoglobin concentration measurement (mass/volume) 33 g/dL 32-36 Automated erythrocyte distribution width ratio 15.1 % 10.0- 14.5 Automated blood platelet count (count/volume) 236 10*3/uL 130-400 Automated blood platelet mean volume measurement 9.7 [foz_us] 7.4-10.4 Automated blood neutrophils/100 leukocytes 73 % 42-75 Automated blood lymphocytes/100 leukocytes 17 % 12-44 Blood monocytes/100 leukocytes 10 % 0-12 Automated blood eosinophils/100 leukocytes 0 % 0-10 Automated blood basophils/100 leukocytes 0 % 0-10 Blood neutrophils automated count (number/volume) 7.8 10*3 1.8-7.8 Blood lymphocytes automated count (number/volume) 1.8 10*3 1.0-4.0 Blood monocytes automated count (number/volume) 1.1 10*3 0.0- 1.0 Automated eosinophil count 0.0 10*3/uL 0.0-0.3 Automated blood basophil count (count/volume) 0.0 10*3/uL 0.0-0.1 PT panel in platelet poor plasma by coagulation assay - 10/08/18 05:12 Prothrombin time (PT) in platelet poor plasma by coagulation assay 13.2 s 12.2-14.7 INR in platelet poor plasma or blood by coagulation assay 1.0 0.8-1.4 Whole blood basic metabolic panel - 10/08/18 05:12 Serum or plasma sodium measurement (moles/volume) 137 mmol/L 135-145 Serum or plasma potassium measurement (moles/volume) 4.2 mmol/L 3.6-5.0 Serum or plasma chloride measurement (moles/volume) 106 mmol/L 98-107 Carbon dioxide 24 mmol/L 21-32 Serum or plasma anion gap determination (moles/volume) 7 mmol/L 5-14 Serum or plasma urea nitrogen measurement (mass/volume) 9 mg/dL 7-18 Serum or plasma creatinine measurement (mass/volume) 0.62 mg/dL 0.60-1.30 Serum or plasma urea nitrogen/creatinine mass ratio 15 NRG Serum or plasma creatinine measurement with calculation of estimated glomerular filtration rate > NRG Serum or plasma glucose measurement (mass/volume) 99 mg/dL 70-105 Serum or plasma calcium measurement (mass/volume) 8.3 mg/dL 8.5-10.1 Serum or plasma phosphate measurement (mass/volume) - 10/08/18 05:12 Serum or plasma phosphate measurement (mass/volume) 2.2 mg/dL 2.3-4.7 Magnesium - 10/08/18 05:12 Magnesium 2.1 mg/dL 1.8-2.4 Complete blood count (CBC) with automated white blood cell (WBC) differential - 10/10/18 14:39 Blood leukocytes automated count (number/volume) 11.1 10*3/uL 4.3-11.0 Blood erythrocytes automated count (number/volume) 4.76 10*6/uL 4.35-5.85 Venous blood hemoglobin measurement (mass/volume) 14.1 g/dL 13.3-17.7 Blood hematocrit (volume fraction) 42 % 40-54 Automated erythrocyte mean corpuscular volume 87 [foz_us] 80-99 Automated erythrocyte mean corpuscular hemoglobin (mass per erythrocyte) 30 pg 25-34 Automated erythrocyte mean corpuscular hemoglobin concentration measurement (mass/volume) 34 g/dL 32-36 Automated erythrocyte distribution width ratio 15.0 % 10.0- 14.5 Automated blood platelet count (count/volume) 328 10*3/uL 130-400 Automated blood platelet mean volume measurement 9.9 [foz_us] 7.4-10.4 Automated blood neutrophils/100 leukocytes 70 % 42-75 Automated blood lymphocytes/100 leukocytes 17 % 12-44 Blood monocytes/100 leukocytes 11 % 0-12 Automated blood eosinophils/100 leukocytes 1 % 0-10 Automated blood basophils/100 leukocytes 1 % 0-10 Blood neutrophils automated count (number/volume) 7.8 10*3 1.8-7.8 Blood lymphocytes automated count (number/volume) 1.9 10*3 1.0-4.0 Blood monocytes automated count (number/volume) 1.3 10*3 0.0- 1.0 Automated eosinophil count 0.1 10*3/uL 0.0-0.3 Automated blood basophil count (count/volume) 0.1 10*3/uL 0.0-0.1 PT panel in platelet poor plasma by coagulation assay - 10/10/18 14:39 Prothrombin time (PT) in platelet poor plasma by coagulation assay 13.9 s 12.2-14.7 INR in platelet poor plasma or blood by coagulation assay 1.0 0.8-1.4 Activated partial thromboplastin time (aPTT) in platelet poor plasma bycoagulation assay - 10/10/18 14:39 Activated partial thromboplastin time (aPTT) in platelet poor plasma bycoagulation assay 32 s 24-35 Comprehensive metabolic panel - 10/10/18 14:39 Serum or plasma sodium measurement (moles/volume) 135 mmol/L 135-145 Serum or plasma potassium measurement (moles/volume) 4.3 mmol/L 3.6-5.0 Serum or plasma chloride measurement (moles/volume) 103 mmol/L 98-107 Carbon dioxide 20 mmol/L 21-32 Serum or plasma anion gap determination (moles/volume) 12 mmol/L 5-14 Serum or plasma urea nitrogen measurement (mass/volume) 15 mg/dL 7-18 Serum or plasma creatinine measurement (mass/volume) 0.72 mg/dL 0.60-1.30 Serum or plasma urea nitrogen/creatinine mass ratio 21 NRG Serum or plasma creatinine measurement with calculation of estimated glomerular filtration rate > NRG Serum or plasma glucose measurement (mass/volume) 92 mg/dL 70-105 Serum or plasma calcium measurement (mass/volume) 9.4 mg/dL 8.5-10.1 Serum or plasma total bilirubin measurement (mass/volume) 0.5 mg/dL 0.1-1.0 Serum or plasma alkaline phosphatase measurement (enzymatic activity/volume) 50 U/L 40-136 Serum or plasma aspartate aminotransferase measurement (enzymatic activity/volume) 23 U/L 5-34 Serum or plasma alanine aminotransferase measurement (enzymatic activity/volume) 15 U/L 0-55 Serum or plasma protein measurement (mass/volume) 7.3 g/dL 6.4-8.2 Serum or plasma albumin measurement (mass/volume) 3.8 g/dL 3.2-4.5 CALCIUM CORRECTED 9.6 mg/dL 8.5-10.1 Magnesium - 10/10/18 14:39 Magnesium 2.3 mg/dL 1.8-2.4 Serum or plasma troponin i.cardiac measurement (mass/volume) - 10/10/18 14:39 Serum or plasma troponin i.cardiac measurement (mass/volume) < ng/mL <0.028 Myoglobin, serum - 10/10/18 14:39 Myoglobin, serum 31.0 ng/mL 10.0-92.0 Complete blood count (CBC) with automated white blood cell (WBC) differential - 10/11/18 05:24 Blood leukocytes automated count (number/volume) 10.6 10*3/uL 4.3-11.0 Blood erythrocytes automated count (number/volume) 4.57 10*6/uL 4.35-5.85 Venous blood hemoglobin measurement (mass/volume) 13.3 g/dL 13.3-17.7 Blood hematocrit (volume fraction) 40 % 40-54 Automated erythrocyte mean corpuscular volume 88 [foz_us] 80-99 Automated erythrocyte mean corpuscular hemoglobin (mass per erythrocyte) 29 pg 25-34 Automated erythrocyte mean corpuscular hemoglobin concentration measurement (mass/volume) 33 g/dL 32-36 Automated erythrocyte distribution width ratio 15.1 % 10.0- 14.5 Automated blood platelet count (count/volume) 325 10*3/uL 130-400 Automated blood platelet mean volume measurement 10.0 [foz_us] 7.4-10.4 Automated blood neutrophils/100 leukocytes 64 % 42-75 Automated blood lymphocytes/100 leukocytes 20 % 12-44 Blood monocytes/100 leukocytes 12 % 0-12 Automated blood eosinophils/100 leukocytes 4 % 0-10 Automated blood basophils/100 leukocytes 0 % 0-10 Blood neutrophils automated count (number/volume) 6.7 10*3 1.8-7.8 Blood lymphocytes automated count (number/volume) 2.1 10*3 1.0-4.0 Blood monocytes automated count (number/volume) 1.3 10*3 0.0- 1.0 Automated eosinophil count 0.4 10*3/uL 0.0-0.3 Automated blood basophil count (count/volume) 0.0 10*3/uL 0.0-0.1 Comprehensive metabolic panel - 10/11/18 05:24 Serum or plasma sodium measurement (moles/volume) 136 mmol/L 135-145 Serum or plasma potassium measurement (moles/volume) 3.9 mmol/L 3.6-5.0 Serum or plasma chloride measurement (moles/volume) 106 mmol/L 98-107 Carbon dioxide 19 mmol/L 21-32 Serum or plasma anion gap determination (moles/volume) 11 mmol/L 5-14 Serum or plasma urea nitrogen measurement (mass/volume) 10 mg/dL 7-18 Serum or plasma creatinine measurement (mass/volume) 0.67 mg/dL 0.60-1.30 Serum or plasma urea nitrogen/creatinine mass ratio 15 NRG Serum or plasma creatinine measurement with calculation of estimated glomerular filtration rate > NRG Serum or plasma glucose measurement (mass/volume) 98 mg/dL 70-105 Serum or plasma calcium measurement (mass/volume) 9.2 mg/dL 8.5-10.1 Serum or plasma total bilirubin measurement (mass/volume) 0.7 mg/dL 0.1-1.0 Serum or plasma alkaline phosphatase measurement (enzymatic activity/volume) 48 U/L 40-136 Serum or plasma aspartate aminotransferase measurement (enzymatic activity/volume) 14 U/L 5-34 Serum or plasma alanine aminotransferase measurement (enzymatic activity/volume) 15 U/L 0-55 Serum or plasma protein measurement (mass/volume) 6.7 g/dL 6.4-8.2 Serum or plasma albumin measurement (mass/volume) 3.6 g/dL 3.2-4.5 CALCIUM CORRECTED 9.5 mg/dL 8.5-10.1 Lipid 1996 panel - 10/11/18 05:24 Serum or plasma triglyceride measurement (mass/volume) 102 mg/dL <150 Serum or plasma cholesterol measurement (mass/volume) 179 mg/dL < 200 Serum or plasma cholesterol in HDL measurement (mass/volume) 42 mg/dL 40-60 Cholesterol in LDL [mass/volume] in serum or plasma by direct assay 120 mg/dL 1-129 Serum or plasma cholesterol in VLDL measurement (mass/volume) 20 mg/dL 5-40 Encounters ACCT No. Visit Date/Time Discharge Status Pt. Type Provider Facility Loc./Unit Complaint [id number] 10/10/2018 16:40:00 10/11/2018 15:15:00 DIS Outpatient PTATIE NESBITT DO [facility] 4TH POST OP PAIN,A-FLUTTER,INABILITY TO CARE FOR SELF [id number] 10/05/2018 08:05:00 10/08/2018 11:45:00 DIS Outpatient MONIK BRITO MD [facility] 4TH AFIB W RVR [id number] 10/06/2018 08:30:00 10/06/2018 23:59:59 CLS Preadmit DAVID ALVES MD OSTEOARTHRITIS LEFT KNEE [id number] 10/04/2018 09:22:00 10/04/2018 11:00:00 DIS Outpatient DAVID ALVES MD [facility] PREOP OSTEOARTHRITIS LEFT KNEE [id number] 07/27/2016 10:27:00 07/27/2016 13:29:00 DIS Emergency MARTHA DEVI DO [facility] ER VOMITING BLOOD,BLOOD IN STOOL [id number] 11/08/2018 11:00:00 PEN Preadmit Cynthia MENDEZ MD [facility] CATH TYPICAL AF
[2018-11-08] MEDS ORDERED: ATOR10TA66 PO (09:56)
[2018-11-08] MEDS ORDERED: TRAM100T28 PO (09:56)
[2018-11-08 10:00] LABS: INR 1.1 (0.8-1.4); PROTHROMBIN TIME PATIENT 14.9 SEC (12.2-14.7)
[2018-11-08 10:05] LABS: ALANINE AMINOTRANSFERASE 10 U/L (0-55); ALKALINE PHOSPHATASE 79 U/L (40-136); BILIRUBIN,TOTAL 0.4 MG/DL (0.1-1.0); BUN/CREATININE RATIO 18; CALCIUM 9.4 MG/DL (8.5-10.1); CARBON DIOXIDE 23 MMOL/L (21-32); CHLORIDE 107 MMOL/L (98-107); CREATININE SERUM 0.78 MG/DL (0.60-1.30); GFR ESTIMATED > 60; GLUCOSE 96 MG/DL (70-105); SODIUM 139 MMOL/L (135-145); TOTAL PROTEIN 7.2 GM/DL (6.4-8.2)
[2018-11-08] MEDS ORDERED: MIDAZOLAM 2 MG/2 ML (VERSED) VIAL ONE (11:23)
[2018-11-08] MEDS ORDERED: fentaNYL INJECTION 100 MCG/2 ML AMP ONE (11:23)
[2018-11-08] MEDS ORDERED: proPOfol 200 MG/20 ML (DIPRIVAN) VIAL IV ONE (11:23)
[2018-11-08] MEDS ORDERED: ONDANSETRON 4 MG/2 ML (SDV) Z0FRAN ONE (11:24)
[2018-11-08] MEDS ORDERED: HYDROmorphone 2 MG/ML VIAL (DILAUDID) ONE (12:49)
[2018-11-08] MEDS ORDERED: NS IV 1000 ML 1,000 ML ONE (13:38)
[2018-11-08] MEDS ORDERED: SEVOFLURANE (ULTANE) 15 ML INHAL SOLN ONE ×2 (13:38→15:00)
[2018-11-08] MEDS ORDERED: PHENYLEPHRINE 100 MCG/ML 10 ML (ANESTHESIA) SYR ONE (13:49)
--- NOTE | 2018-11-08 15:13 | Electrophysiology Procedure ---
EP Procedure DATE OF SERVICE:11/08/18 REFERRING PHYSICIAN: Christofer To MD CARDIAC TOOL AND DIE MAKER LEVEL FIVE: Perlita Strauss MD, RUST INDICATION: typical atrial flutter. PREOPERATIVE DIAGNOSIS:typical atrial flutter. POSTOPERATIVE DIAGNOSES: successful typical atrial flutter ablation. HISTORY: this is a 58-year-old gentleman with history of typical atrial flutter. The patient is planned for comprehensive EP study and ablation. PROCEDURE PERFORMED: 1. Comprehensive EP study with induction. 2. Fluoroscopy. 3. left atrial pacing and recording. 4. Drug infusion. 5. Ablation of typical atrial flutter. 6. Comprehensive 3D mapping with the carto system. COMPLICATION: None. ESTIMATED BLOOD LOSS: 10 mL. CONTRAST USED: None. FLUOROSCOPY TIME: 16.6 minutes. FLUOROSCOPY DOSE: 492 mgy. SPECIMENS: None. ANESTHESIA: Done by our anesthesia colleagues. ANTICOAGULATION: oral anti-coagulation. PROCEDURE IN DETAIL: After informed consent was taken, the patient was brought to the EP lab. Anesthesia was provided by our anesthesia colleagues. The patient was draped and prepped in the usual sterile fashion. The patient presented to the EP lab in Tachycardia (typical atrial flutter). Access was gained in the right femoral vein with a 6-Chinese and an 8-Chinese sheath. Left access in left femoral vein was gained with 5-Chinese and 6-Chinese sheath respectively. High right atrial catheter was an ablation catheter, right ventricular catheter was placed, his catheter and the CS catheter were also placed. A comprehensive EP study was done. A 3D electroanatomic mapping was donewith the carto system. 3-D mapping was done and atrial flutter, propagation mapping demonstrated that early meets late in the cavo- tricuspid isthmus. Tachycardia was entrained from the CTI. Post pacing interval minus TCL was less than 5 ms. Diagnosis was CTI dependent typical atrial flutter. Ablation was performed in the cavotricuspid isthmus.tachycardia terminated during ablation. flutter line was completed. CS pacing and pacing from the ablation catheter at different positions on the lateral side of the ablation line were used to verify bidirectional block. We then waited for 30 minutes and rechecked and confirmed bidirectional block.Isuprel was given post-procedure, however, we could not induce atrial flutter. dual AV clinton physiology was not demonstrated. Left atrial pacing and recording did not demonstrate left lateral pathway. The patienttolerated the procedurewell and did not have any complication. The patientleft the lab in sinus rhythm. Total ablation time was 19 minutes and 10 seconds. MEASUREMENTS/EP STUDY: SC interval 170 ms, QRS duration 90 ms, R-R interval 466 ms, AH interval to 36 ms, HV interval 49 ms, AV Wenckebach cycle length 340 ms, Retrograde Wenckebach cycle length 290 ms, Atrial ERP 600/220 ms, Retrograde ERP 600/260 ms, Isuprel 4 mcg/min: Atrial ERP 450/200 ms. PLAN: The patient will be observed overnight and will be discharged home tomorrow with precise followup instructions. Perlita Strauss MD, RS, CCDS Cardiac Electrophysiology Cynthia STRAUSS MD Nov 08, 2018 15:13
[2018-11-08] MEDS ORDERED: morphine INJ 10 MG/ML 1ML (SYR OR VIAL) ONE (15:21)
[2018-11-08] MEDS ORDERED: PATIENT MAY USE OWN MEDS, ALL PO SCH (15:30)
[2018-11-08] MEDS: NS IV 1000 ML 1,000 ML IV SCH (18:23)
[2018-11-08] MEDS ORDERED: morphine INJ 10 MG/ML 1ML (SYR OR VIAL) IVP ONE (19:15)
[2018-11-09 00:10] VITALS: BP 117/80
[2018-11-09 03:56] LABS: HEMOGLOBIN 11.9 G/DL (13.3-17.7); MEAN PLATELET VOLUME 9.6 FL (7.4-10.4); RED CELL DISTRIBUTION WIDTH 14.9 % (10.0-14.5); WHITE BLOOD COUNT 9.1 10^3/uL (4.3-11.0)
[2018-11-09 04:16] LABS: CARBON DIOXIDE 20 MMOL/L (21-32); CHLORIDE 107 MMOL/L (98-107); CREATININE SERUM 0.68 MG/DL (0.60-1.30); POTASSIUM 3.9 MMOL/L (3.6-5.0); SODIUM 137 MMOL/L (135-145)
[2018-11-09 04:17] LABS: BUN/CREATININE RATIO 16; CALCIUM 8.3 MG/DL (8.5-10.1); GFR ESTIMATED > 60; GLUCOSE 89 MG/DL (70-105)
[2018-11-09] MEDS: NS IV 1000 ML 1,000 ML IV SCH (04:50)
[2018-11-09 04:55] VITALS: BP 127/80
[2018-11-09 08:00] VITALS: BP 148/104
--- NOTE | 2018-11-09 09:16 | Anesthesia-General Post-Op ---
General Patient Condition Mental Status/LOC: Same as Preop Cardiovascular: Satisfactory Nausea/Vomiting: Absent Respiratory: Satisfactory Pain: Controlled Complications: Absent Post Op Complications Complications None Follow Up Care/Instructions Patient Instructions None needed. Anesthesia/Patient Condition Patient Condition Patient is doing well, no complaints, stable vital signs, no apparent adverse anesthesia problems. No complications reported per nursing. D/C home per [facility] [place] Criteria: Yes LATISHA RAMSAY CRNA Nov 09, 2018 09:15
--- NOTE | 2018-11-09 09:45 | Cardiology Discharge Summary ---
Diagnosis/Chief Complaint Date of Admission 11/08/2018 Date of Discharge 11/09/2018 Admission Diagnosis Typical atrial flutter Final/Discharge Diagnosis Successful typical atrial flutter ablation Chief Complaint/HPI Chief Complaint/HPI this is a 58-year-old gentleman with history of typical atrial flutter. The patient is planned for comprehensive EP study and ablation. Discharge Summary Procedures Successful typical atrial flutter ablation. Discharge Physical Examination Unremarkable. Hospital Course Was the Problem List Reviewed?: Yes Stable. Pending Labs Discussion & Recommendations Discussion Discharge took over 30 minutes to complete. Discharge instructions were discussed at length with the patient. The procedure were discussed at length with the patient as well. I will see the patient 3-4 weeks. Follow up appt.: Dr. Strauss in 3 weeks. Dicharge Diet: Cardiac Diet Activity as Tolerated: Yes Home Medications Reviewed patient Home Medication Reconciliation performed by pharmacy medication reconciliations critical care technician and/or nursing. Patients Allergies have been reviewed. Discharge Home Medications: Reviewed and agree with Discharge Medication list on patient's Discharge Instruction sheet Condition at discharge Stable. Instructions to patient/family Discussed with the patient. Cynthia STRAUSS MD Nov 09, 2018 09:45
--- NOTE | 2018-11-09 09:46 | Discharge Inst-Post CATH ---
Discharge Inst-CATH/EP Post Cardiac Cath/EP D/C Inst Follow Up/Plan Dr Strauss in 3-4 weeks. <b>CARDIAC CATH/EP PROCEDURE DISCHARGE INSTRUCTIONS</b> ACTIVITY * Go Home directly and rest. * Limit activity of the leg (or wrist if it was used) for 7 days including aerobics, swimming, jogging, bicycling, etc. * Restrict stair-climbing for 7 days if possible, if not, climb up with your non-cath leg, then bring together on the same step. * Avoid lifting, pushing, pulling or excessive movement of the affected extremity for 7 days. * Customary sexual activity may be resumed after 2 days-use caution not to use a position that strains or causes pain to the affected extremity. * No driving for 24 hours. * NO SMOKING. * Avoid straining for bowel movements for 7 days. * Gentle walking on level ground is allowed. * Returning to work will depend on the type of procedure and the results. Your doctor will discuss this with you. CALL YOUR DOCTOR FOR ANY OF THE FOLLOWING: *If bleeding from the puncture site occurs- Apply gentle pressure to site with clean cloth and call your doctor or EMS. * If a knot or lump forms under the skin, increases in size, or causes pain. * If bruising appears to be worsening or moving further down your leg instead of disappearing. * Temperature above 101 F. CARE OF YOUR GROIN INCISION; * Bruising or purple discoloration of the skin near the puncture site is common. * You may shower only, no bathtub bathing for 5 days. Be careful to avoid slipping as your leg may feel stiff. * If a closure device was used on your femoral artery, please see the attached guide regarding care of the device and your leg. * Leave dressing on FOR 24 hours. CARE OF YOUR WRIST INCISION; * Bruising or purple discoloration of the skin near the puncture site is common. * You may shower. * DO NOT submerge wrist. * Leave dressing on FOR 24 hours. Cynthia STRAUSS MD Nov 09, 2018 09:46
== END 2018-11-09 10:30 | disposition home or self-care (01) ==
LOC: CATH 09:07 → ICU 16:01 → CATH 11-09 10:30
PROVIDERS: ATTEND Internal Medicine Interventional Cardiology
DX: I48.3 Typical atrial flutter (principal); I10 Essential (primary) hypertension; K21.9 Gastro-esophageal reflux disease without esophagitis; F17.210 Nicotine dependence, cigarettes, uncomplicated; Z96.652 Presence of left artificial knee joint; Z86.718 Personal history of other venous thrombosis and embolism; Z79.01 Long term (current) use of anticoagulants; Z79.899 Other long term (current) drug therapy
CPT/HCPCS: 36415; 80048; 80053; 85027; 85610; 85730; 87081; 93005; 93613; 93620; 93621; 93623; 93653

== ENCOUNTER 2018-12-09 08:55 | Outpatient (RCR) | payer MEDICARE ==
[~2018-12-09 08:55] MED LIST changes: +ATOR10TA66 PO; +TRAM100T28 PO
== END 2019-03-09 | disposition home or self-care (01) ==
LOC: CARD 08:55
PROVIDERS: ATTEND Internal Medicine Interventional Cardiology
DX: I48.3 Typical atrial flutter (principal); I10 Essential (primary) hypertension; Z72.0 Tobacco use